=== PATIENT | female | born 1960 | race Caucasian/White ===

== ENCOUNTER → 2017-10-23 | Outpatient (REF) | payer SELFPAY | LOC: M LABDRAW1 09:32 | DX: E89.0 Postprocedural hypothyroidism (principal) ==

== ENCOUNTER → 2017-11-30 | Outpatient (CLI) | payer SELFPAY ==
[2017-11-30 08:30] LABS: FREE T4 1.19 NG/DL (0.76-1.46)
== END ==
LOC: M LAB 07:18
DX: E89.0 Postprocedural hypothyroidism (principal)

== ENCOUNTER → 2018-04-17 | Outpatient (CLI) | payer SELFPAY | LOC: M LAB 08:02 | DX: E89.0 Postprocedural hypothyroidism (principal) ==

== ENCOUNTER → 2018-10-30 | Outpatient (CLI) | payer SELFPAY ==
[~2018-10-30] MED LIST: /WARF25TA OR; ALDA25TA2 OR; DIGO0.257 OR; FERR325T OR; LASI20TA OR; No Historical Meds; OMEP20TA7 OR; PROP60TA OR; SLOWTAB OR; VITA500C OR; [UNRECOGNIZED DRUG - OTHER] PO; tapazole PO
== END ==
LOC: M LAB 10:21
PROVIDERS: ATTEND Nurse Practitioner Family
DX: E89.0 Postprocedural hypothyroidism (principal)

== ENCOUNTER 2019-04-22 09:31 | Emergency (ER) | payer SELFPAY ==
[~2019-04-22] VITALS: Ht 160 cm; Wt 85.0 kg
[~2019-04-22 09:31] MED LIST changes: -/WARF25TA OR; +COUM1TAB18 OR
[2019-04-22] MEDS ORDERED: [UNRECOGNIZED DRUG - OTHER] (09:40)
[2019-04-22] MEDS ORDERED: ASPI81CH48 PO (09:40)
[2019-04-22] MEDS ORDERED: RANI150T PO (09:40)
[2019-04-22] MEDS ORDERED: LEVO100T5 PO (09:40)
[2019-04-22] MEDS ORDERED: BENZONATATE 100 MG CAP PO ONE (11:00)
[2019-04-22] MEDS ORDERED: AUGM875T28 PO (11:11)
[2019-04-22] MEDS ORDERED: TESS100C PO (11:12)
[2019-04-22 11:24] VITALS: BP 153/70
== END 2019-04-22 11:26 | disposition home or self-care (01) ==
LOC: M ED 09:31
DX: J01.90 Acute sinusitis, unspecified (principal); R05 Cough; K21.9 Gastro-esophageal reflux disease without esophagitis; E05.90 Thyrotoxicosis, unspecified without thyrotoxic crisis or storm; F41.9 Anxiety disorder, unspecified; F32.9 Major depressive disorder, single episode, unspecified; Z72.0 Tobacco use; Z79.82 Long term (current) use of aspirin; Z79.899 Other long term (current) drug therapy

== ENCOUNTER → 2020-02-18 | Outpatient (CLI) | payer SELFPAY ==
[~2020-02-18] MED LIST changes: +ASPI81CH48 PO; +AUGM875T28 PO; +LEVO100T5 PO; +RANI150T PO; +TESS100C PO; +[UNRECOGNIZED DRUG - OTHER]
== END ==
LOC: M LAB 08:07
PROVIDERS: ATTEND Nurse Practitioner Family
DX: E89.0 Postprocedural hypothyroidism (principal)

== ENCOUNTER 2020-08-10 21:13 | Inpatient (IN) | payer SELFPAY ==
[~2020-08-10] VITALS: Ht 160 cm; Wt 81.8 kg
[2020-08-10 21:52] LABS: BASO # 0.1 10^3/uL (0.0-0.2); BASO % 0.9 % (0.0-1.0); EOS # 0.2 10^3/uL (0.0-0.5); EOS % 1.5 % (0.0-3.0); HEMATOCRIT 42.5 % (36.0-47.0); HEMOGLOBIN 14.5 g/dl (12.0-15.5); LYMPH # 3.1 10^3/uL (1.5-5.0); LYMPH % 28.8 % (24.0-44.0); MEAN CORPUSCULAR HEMOGLOBIN 31.9 pg (27.0-33.0); MEAN CORPUSCULAR HGB CONC 34.1 g/dl (32.0-36.5); MEAN CORPUSCULAR VOLUME 93.4 fl (80.0-96.0); MONO # 0.9 10^3/uL (0.0-0.8); MONO % 7.9 % (0.0-5.0); NEUTROPHILS # 6.5 10^3/uL (1.5-8.5); NEUTROPHILS % 60.8 % (36.0-66.0); PLATELET COUNT, AUTOMATED 328 10^3/uL (150-450); RED BLOOD COUNT 4.55 10^6/uL (4.00-5.40); WHITE BLOOD COUNT 10.7 10^3/uL (4.0-10.0)
--- NOTE | 2020-08-10 22:08 | REPVR ---
PROCEDURE INFORMATION: Exam: XR Chest, 1 View Exam date and time: 08/10/2020 9:25 PM Age: 59 years old Clinical indication: Chest pain; Type not specified TECHNIQUE: Imaging protocol: XR of the chest Views: 1 view. COMPARISON: No relevant prior studies available. FINDINGS: Lungs: Mild left base atelectasis or scar. The right lung is clear. Pleural space: Unremarkable. No pleural effusion. No pneumothorax. Heart/Mediastinum: Volume loss in the left hemithorax with shift of the heart toward the left. No cardiomegaly. Bones/joints: Unremarkable. IMPRESSION: 1. Volume loss in the left hemithorax with left base atelectasis or scar. 2. Otherwise negative chest. Electronically signed by: Shahbaz Pickett On 08/10/2020 22:08:11 PM
[2020-08-10 22:13] LABS: ALT/SGPT 17 U/L (12-78); BILIRUBIN,DIRECT 0.1 MG/DL (0.0-0.2); BILIRUBIN,TOTAL 0.4 MG/DL (0.2-1.0); CK-MB VALUE MASS 1.5 NG/ML (<3.6); CPK CREATINE PHOSPHOKINASE 110 U/L (26-192); LIPASE 188 U/L (73-393); MB/CK RELATIVE INDEX 1.36 (< OR =4); TOTAL PROTEIN 7.1 GM/DL (6.4-8.2); TROPONIN I < 0.02 NG/ML (< 0.10)
[2020-08-10] MEDS ORDERED: AZITHROMYCIN INJ 500 MG, VIAL MATE ADAPTER 1 EACH in D5W 250 ML IV ONE (22:15)
[2020-08-10] MEDS ORDERED: IPRATROPIUM 0.5MG/ALBUTEROL 2.5MG INH SOL UD 3ML (DUONEB) NEB ONE (22:15)
[2020-08-10] MEDS ORDERED: cefTRIAXone SOD 2 GM in D5W MINI-BAG PLUS 50 ML IV ONE (22:15)
[2020-08-10 22:16] LABS: INR 0.92; PROTHROMBIN TIME 12.6 SECONDS (12.5-14.3)
[2020-08-10] MEDS ORDERED: ISOVUE-370 76% 100ML VIAL As Ordered ONE (22:30)
--- NOTE | 2020-08-11 02:06 | REPVR ---
PROCEDURE INFORMATION: Exam: CT Angiography Chest With Contrast Exam date and time: 08/10/2020 1:41 AM Age: 59 years old Clinical indication: Abnormal findings; Abnormal radiologic exam of lung or chest; Additional info: Rule out malignancy and pulmonary embolism TECHNIQUE: Imaging protocol: Computed tomographic angiography of the chest with intravenous contrast. 3D rendering (Not supervised by radiologist): MIP and/or 3D reconstructed images were created by the technologist. Radiation optimization: All CT scans at this facility use at least one of these dose optimization techniques: automated exposure control; mA and/or kV adjustment per patient size (includes targeted exams where dose is matched to clinical indication); or iterative reconstruction. Contrast material: ISOVUE 370; Contrast volume: 75 ml; Contrast route: INTRAVENOUS (IV); COMPARISON: CR PORTABLE CHEST X-RAY 08/10/2020 9:41 PM FINDINGS: Pulmonary arteries: The left hilar mass encases the distal left main pulmonary artery and proximal branches with slight narrowing. The main pulmonary artery measures 26 mm. No pulmonary embolism is identified. Aorta: The ascending thoracic aorta measures 33 mm. Lungs: Left hilar mass with abrupt obstruction of the left upper lobe bronchus and lingular bronchus with prominent narrowing of the left lower lobe bronchus. Moderately prominent atelectasis or consolidation of the left upper lobe and lingula with infiltrates and atelectasis in the remaining aerated apical left upper lobe. There is a separate left lower lobe left infrahilar mass measuring 3.1 x 3.2 x 2.1 cm and does tangentially contact the left hilar mass which measures approximately 8.1 x 6.0 x 5.4 cm. Pleural space: Unremarkable. No pneumothorax. No pleural effusion. Heart: Unremarkable. No cardiomegaly. No pericardial effusion. Mediastinal space: There is soft tissue confluence in the subcarinal region and some extension of the left hilar mass into the aorticopulmonary window. A few smaller nodes are noted in the right paratracheal region. Lymph nodes: See "Mediastinal space" finding. Bones/joints: Unremarkable. No acute fracture. Soft tissues: Unremarkable. IMPRESSION: 1. Large left hilar mass consistent with malignancy with adjacent infrahilar left lower lobe mass consistent with metastasis and borderline to mild mediastinal adenopathy also consistent with metastatic disease. 2. Left lung bronchial occlusion and narrowing with moderately prominent atelectasis or consolidation of the left upper lobe and lingula with infiltrates and atelectasis remaining in the aerated apical left upper lobe. 3. Otherwise negative CTA chest. No pulmonary embolism is identified. Electronically signed by: Shahbaz Pickett On 08/11/2020 02:05:53 AM
[2020-08-11 02:32] LABS: CK-MB VALUE MASS 1.3 NG/ML (<3.6); CPK CREATINE PHOSPHOKINASE 89 U/L (26-192); MB/CK RELATIVE INDEX 1.46 (< OR =4); TROPONIN I < 0.02 NG/ML (< 0.10)
[2020-08-11] MEDS ORDERED: POTASSIUM CHLORIDE 10 MEQ SR TABLET PO ONE (04:00)
[2020-08-11] MEDS ORDERED: MORPHINE 2 MG/ML 1ML VIAL (J2270) IV PRN (04:00)
[2020-08-11] MEDS ORDERED: ACET-897 PO (04:11)
[2020-08-11] MEDS ORDERED: GNPTAB PO (04:11)
[2020-08-11] MEDS ORDERED: BAYE325T12 PO (04:11)
[2020-08-11] MEDS ORDERED: FAMO20TA4 PO (04:11)
[2020-08-11] MEDS ORDERED: SYNT112T2 PO (04:11)
--- NOTE | 2020-08-11 04:26 | IPNPDOC ---
Text Note Date of Service The patient was seen on 08/11/20. VS,Fishbone, I+O VS, Fishbone, I+O Laboratory Tests 08/10/20 21:33 Vital Signs Date Time Temp Pulse Resp B/P (MAP) Pulse Ox O2 Delivery O2 Flow Rate FiO2 08/11/20 02:46 89 20 153/67 (95) 95 Room Air 08/10/20 21:13 97.5 I&O- Last 24 Hours up to 6 AM 08/11/20 06:00 Intake Total 305 ml Balance 305 ml GERSON ASHBY MD Aug 11, 2020 04:26
[2020-08-11 05:47] VITALS: BP 144/82
[2020-08-11] MEDS: traMADol 50 MG TAB PO PRN ×2 (06:07→17:28)
[2020-08-11] MEDS: LevoFLOXacin IV 750 MG in IV 1 EA IV SCH (06:08)
[2020-08-11] MEDS: NICOTINE 21MG/24HR 1 EA TRANSDERMAL TD PRN (06:09)
--- NOTE | 2020-08-11 06:22 | HPEPDOC ---
[facility] Medical History & Physical Date of Admission Aug 11, 2020 Date of Service: Aug 11, 2020 Attending Physician: GERSON ASHBY MD History and Physical CHIEF COMPLAINT: Shortness of breath and palpitations HISTORY OF PRESENT ILLNESS: Patient is a 59 year old female who presented to the [facility] ER with complaint of increasing shortness of breath and feelings of her heart racing. Patient states that her symptoms started about a month or so ago. She had noticed some mild shortness of breath and a cough. Additionally the patient states that she had developed pain on the left side of her back behind h er scapula which she attributed to a pull muscle. She states that she gradually developed worsening shortness of breath and cough with sputum production. She thought this was from her allergies. Her shortness of breath progressed to the point where she started to cut back on smoking. About 1-2 weeks ago she noted that she was having night sweats which she attributed to recently turning the heat on in her house. Today the patient states that she had noticed that her heart was beating very fast and she was feeling more and more short of breath which prompted her to present to the ED. In the ED the patient was found to be in Atrial fibrillation with RVR. She was given IV Cardizem and subsequently converted to sinus rhythm. Laboratory studies demonstrated a mild leukocytosis of 10.7. Patient received a chest x-ray and CT angiography. CT angiography demonstrated a large left hilar mass consistent with malignancy and adjacent infrahilar left lower lobe mass consistent with metastasis and borderline to mild mediastinal adenopathy. Additionally left lung bronchial occlusion and narrowing with moderately prominent atelectasis or consolidation of the left upper lobe and lingula with infiltrates and atelectasis remaining in the aerated apical left upper lobe. Hospitalist service was consulted and the patient was admitted for further evaluation and management PAST MEDICAL HISTORY: 1. Graves Disease with hypothyroid conversion s/p ablation 2. Paroxysmal Atrial Fibrillation not on anticoagulation No further diagnosed past medical history as patient does not follow with a PCP PAST SURGICAL HISTORY: 1. D & C after medical SOCIAL HISTORY: Patient lives at home with her . She is independent of her ADLs. She is a current and long time smoker. She started smoking around 17- 18. She smokes about 1 1/2 ppd. Additionally she smokes marijuana daily. She denies any IV drug use. She denies any alcohol use FAMILY HISTORY: Patients dad at the age of 78 from pancreatic cancer. Her mom is alive. She is an only child ALLERGIES: Please see below. REVIEW OF SYSTEMS: CONSTITUTIONAL: Admits to nightsweats. Admits to unintentional weightloss. Admits to chills. Denies fevers HEENT: Denies changes in vision. Denies difficulty swallowing. CARDIOVASCULAR: Admits to palpitations and feelings of the heart racing. Denies chest pain or pressure RESPIRATORY: Admits to shortness of breath. Admits to cough. Admits to some sputum production. Denies hemoptysis GASTROINTESTINAL: Denies abdominal pain. Denies diarrhea, nausea, vomiting, constipation or diarrhea GENITOURINARY: Denies dysuria. Denies increased frequency or urgency SKIN: Denies rashes or lesions MUSCULOSKELETAL: Admits to left back pain located under the scapula. Denies muscle weakness NEUROLOGICAL: Denies changes in speech or gait PSYCHIATRIC: Denies history of anxiety or depression ENDOCRINE: Denies heat intolerance or cold intolerance HEMATOLOGIC/LYMPHATIC: Denies easy bruising or bleeding. Denies history of DVT or PE HOME MEDICATIONS: Please see below. PHYSICAL EXAMINATION: VITAL SIGNS: Temperature 97.3, pulse 83, respiratory rate 19, blood pressure 129/59, pulse oximetry 98% on room air. GENERAL APPEARANCE: Awake, alert, and oriented. Does not appear in acute distress. Appears anxious. HEENT: Atraumatic, normocephalic. Eyes are nonicteric. Trachea is midline. Mucous membranes are pink and moist CARDIOVASCULAR: Normal S1, S2. Regular rate and rhythm. No clicks rubs or murm urs LUNGS: Clear vesicular breath sounds bilaterally. Somewhat diminished on the left. No wheezes, rhonchi or rales. Symmetric chest expansion. Somewhat poor respiratory effort due to patient related effort from pain ABDOMEN: Soft, nondistended. Nontender. Normoactive bowel sounds EXTREMITIES: No edema. Full and equal pulses in bilateral upper and lower extremities NEUROLOGICAL: No focal neurological deficits PSYCHIATRIC: Mood and affect are appropriate for situation LABORATORY DATA: See below. IMAGING: PROCEDURE INFORMATION: Exam: XR Chest, 1 View Exam date and time: 08/10/2020 9:25 PM Age: 59 years old Clinical indication: Chest pain; Type not specified TECHNIQUE: Imaging protocol: XR of the chest Views: 1 view. COMPARISON: No relevant prior studies available. FINDINGS: Lungs: Mild left base atelectasis or scar. The right lung is clear. Pleural space: Unremarkable. No pleural effusion. No pneumothorax. Heart/Mediastinum: Volume loss in the left hemithorax with shift of the heart toward the left. No cardiomegaly. Bones/joints: Unremarkable. IMPRESSION: 1. Volume loss in the left hemithorax with left base atelectasis or scar. 2. Otherwise negative chest. Electronically signed by: Shahbaz Pickett On 08/10/2020 PROCEDURE INFORMATION: Exam: CT Angiography Chest With Contrast Exam date and time: 08/10/2020 1:41 AM Age: 59 years old Clinical indication: Abnormal findings; Abnormal radiologic exam of lung or chest; Additional info: Rule out malignancy and pulmonary embolism TECHNIQUE: Imaging protocol: Computed tomographic angiography of the chest with intravenous contrast. 3D rendering (Not supervised by radiologist): MIP and/or 3D reconstructed images were created by the technologist. Radiation optimization: All CT scans at this facility use at least one of these dose optimization techniques: automated exposure control; mA and/or kV adjustment per patient size (includes targeted exams where dose is matched to clinical indication); or iterative reconstruction. Contrast material: ISOVUE 370; Contrast volume: 75 ml; Contrast route: INTRAVENOUS (IV); COMPARISON: CR PORTABLE CHEST X-RAY 08/10/2020 9:41 PM FINDINGS: Pulmonary arteries: The left hilar mass encases the distal left main pulmonary artery and proximal branches with slight narrowing. The main pulmonary artery measures 26 mm. No pulmonary embolism is identified. Aorta: The ascending thoracic aorta measures 33 mm. Lungs: Left hilar mass with abrupt obstruction of the left upper lobe bronchus and lingular bronchus with prominent narrowing of the left lower lobe bronchus. Moderately prominent atelectasis or consolidation of the left upper lobe and lingula with infiltrates and atelectasis in the remaining aerated apical left upper lobe. There is a separate left lower lobe left infrahilar mass measuring 3.1 x 3.2 x 2.1 cm and does tangentially contact the left hilar mass which measures approximately 8.1 x 6.0 x 5.4 cm. Pleural space: Unremarkable. No pneumothorax. No pleural effusion. Heart: Unremarkable. No cardiomegaly. No pericardial effusion. Mediastinal space: There is soft tissue confluence in the subcarinal region and some extension of the left hilar mass into the aorticopulmonary window. A few smaller nodes are noted in the right paratracheal region. Lymph nodes: See "Mediastinal space" finding. Bones/joints: Unremarkable. No acute fracture. Soft tissues: Unremarkable. IMPRESSION: 1. Large left hilar mass consistent with malignancy with adjacent infrahilar left lower lobe mass consistent with metastasis and borderline to mild mediastinal adenopathy also consistent with metastatic disease. 2. Left lung bronchial occlusion and narrowing with moderately prominent atelectasis or consolidation of the left upper lobe and lingula with infiltrates and atelectasis remaining in the aerated apical left upper lobe. 3. Otherwise negative CTA chest. No pulmonary embolism is identified. Electronically signed by: Shahbaz Pickett On 08/11/2020 02:05:53 AM MICROBIOLOGY: Please see below. ASSESSMENT: Patient is a 59 year old female who presented to the [facility] ER with complaint of increasing shortness of breath and feelings of her heart racing and was found to be in Atrial fibrillation with RVR. Imaging in ED demonstrated left upper lobe mass consistent with malignancy . PLAN: 1. Atrial Fibrillation w/ RVR -Patient presented with complaint of worsening SOB and palpitations. Found to be in Atrial fibrillation with RVR. Patient states that she has been diagnosed with A-fib in the past. She states that she was told it was related to her graves disease at the time. She previously followed with Dr. Servin office however had been fired as she did not show up for her appointments. According to the patient she was not placed on any medications as she spontaneously converted to sinus rhythm at the time. Additionally she was previously on Coumadin but she was taken off this and placed on aspirin. Patient has not reestablished with a Cap Cutter and does not follow with a PCP -Patient converted to sinus after receiving Cardizem in the ED. A-fib is likely secondary to her left hilar mass/malignancy -Echo ordered -Patient takes Synthroid outpatient. Does not follow with PCP and unclear as to who is managing her medications. Will order a TSH -[id number] score of 2 for being female and HTN. Will start Eliquis -Currently in sinus rhythm. 2. Left Hilar Mass -Patient has left hilar mass demonstrated on CT imaging. She has had increasing shortness of breath, unintentional weight-loss, decreased appetite, night sweats, and pain behind her left scapula for about a month now. Likely secondary to malignancy -Patient will likely need outpatient follow-up with [facility] for staging. Potential biopsy through IR if possible. If not may need bronchoscopy with CT guided biopsy -Will provide pain management. -Tramadol 50mg prn -Morphine IV -Zofran prn nausea 3. Left upper lobe consolidation -Possible post obstructive pneumonia from left hilar mass. Patient has mild leukocytosis but is afebrile. Does have cough and sputum production -Received Azithromycin and Rocephin in ED -Will start Levaquin IV -Procalcitonin pending. If negative can discontinue 4. Hypertension -Patient states she has hypertension but does not take medicines because she does not follow with PCP. Currently she is normotensive. -Consider Metoprolol of Diltiazem for BP medication as this may also help with rate control if patient develops atrial fibrillation in future 5. Hypothyroidism -Continue Levothyroxine -TSH pending. Patient does not follow with PCP for medication monitoring. Will titrate levothyroxine prn 6. GERD -Continue pepcid 7. Tobacco Abuse -Nicotine Patch 8. DVT prophylaxis -Eliquis Vital Signs Vital Signs Date Time Temp Pulse Resp B/P (MAP) Pulse Ox O2 Delivery O2 Flow Rate FiO2 08/11/20 04:26 97.3 83 19 129/59 (82) 98 Room Air Laboratory Data Labs 24H Laboratory Tests 2 08/10/20 21:33: Immature Granulocyte % (Auto) 0.1, Neutrophils (%) (Auto) 60.8, Lymphocytes (%) (Auto) 28.8, Monocytes (%) (Auto) 7.9H, Eosinophils (%) (Auto) 1.5, Basophils (%) (Auto) 0.9, Neutrophils # (Auto) 6.5, Lymphocytes # (Auto) 3.1, Monocytes # (Auto) 0.9H, Eosinophils # (Auto) 0.2, Basophils # (Auto) 0.1, Nucleated Red Blood Cells % (auto) 0.0, Prothrombin Time 12.6, Prothromb Time International Ratio 0.92, Total Bilirubin 0.4, Direct Bilirubin 0.1, Aspartate Amino Transf (AST/SGOT) 16, Alanine Aminotransferase (ALT/SGPT) 17, Alkaline Phosphatase 69, Total Creatine Kinase 110, Creatine Kinase MB 1.5, Creatine Kinase MB Relative Index 1.36, Troponin I < 0.02, Total Protein 7.1, Albumin 4.0, Albumin/Globulin Ratio 1.3, Lipase 188 08/10/20 21:43: POC Glucose (Misc Panel) 121H, POC Sodium (Misc Panel) 138, POC Potassium (Misc Panel) 3.3L, POC Chloride (Misc Panel) 105, POC Total CO2 (Misc Panel) 22.0L, POC Blood Urea Nitrogen (Misc Panel 14, POC Ionized Calcium (Misc Panel) 4.8, POC Creatinine (Misc Panel) 0.9, POC Hematocrit (Misc Panel) 42.0 08/10/20 21:44: POC Troponin I (Misc) 0.00 08/10/20 22:27: Urine Color YELLOW, Urine Appearance CLEAR, Urine pH 6.0, Urine Specific Byron 1.013, Urine Protein NEGATIVE, Urine Glucose (UA) NEGATIVE, Urine Ketones NEGATIVE, Urine Blood 1+H, Urine Nitrite NEGATIVE, Urine Bilirubin NEGATIVE, Urine Urobilinogen 0.2, Urine Leukocyte Esterase NEGATIVE, Urine WBC (Auto) 2, Urine RBC (Auto) 5H, Urine Hyaline Casts (Auto) 0, Urine Bacteria (Auto) NEGATIVE, Urine Squamous Epithelial Cells 0, Urine Sperm (Auto) 08/11/20 01:57: Total Creatine Kinase 89, Creatine Kinase MB 1.3, Creatine Kinase MB Relative Index 1.46, Troponin I < 0.02 CBC/BMP Laboratory Tests 08/10/20 21:33 Home Medications Scheduled Aspirin (Aspirin) 325 Mg Tablet, 325 MG PO QPM TAKES AROUND 1800 Famotidine (Famotidine) 20 Mg Tablet, 20 MG PO DAILY Levothyroxine Sodium (Synthroid) 112 Mcg Tablet, 112 MCG PO DAILY Scheduled PRN Acetaminophen (Tylenol Extra Strength) 500 Mg Tablet, 1,000 MG PO Q6H PRN for PAIN Diphenhydra/Phenyleph/Acetamin (Allergy-Severe Sinus Amaro Caplet) 1 Each Tablet, 2 TAB PO Q4H PRN for ALLERGY SYMPTOMS/SINUS PAIN Allergies Coded Allergies: No Known Allergies (Verified , 12/13/11) A-FIB/CHADSVASC A-FIB History Current/History of A-Fib/PAF?: Yes Current PO Anticoag Therapy: Yes GME ATTESTATION GME ATTESTATION My faculty preceptor for this patient encounter was physically present during the encounter and was fully available. All aspects of the patient interview, examination, medical decision making process, and medical care plan development were reviewed and approved by the faculty preceptor. The faculty preceptor is aware and concurs with the plan as stated in the body of this note and will attest to such by his/her cosignature. ATTENDING NOTE TIME OF SERVICE 455am is a 59 yr old w a hx of parox afib & thyroiditis induced cardiomyopathy who presented w c/o palpations and cough. She was found to be in rapid afib which resolved w metoprolol, but CT of the chest identified cancer and post obstructive PNA. Plan: f/u trops, Echo, c/w abx, NOAC, PFS consult for assistance with paying for meds. She will need out pt referral to determine the cause of cancer Rest per 's H&P MAURI BARGER DO Aug 11, 2020 06:22 GERSON ASHBY MD Aug 11, 2020 06:50
[2020-08-11] MEDS: ONDANSETRON 4MG/2ML VIAL IV PRN (06:52)
[2020-08-11] MEDS: LEVOTHYROXINE 112MCG TABLET (0.112MG) PO SCH (06:53)
[2020-08-11 07:14] LABS: THYROID STIMULATING HORMONE 0.541 uIU/ML (0.358-3.740)
[2020-08-11 08:01] LABS: MAGNESIUM LEVEL 2.2 MG/DL (1.8-2.4); TROPONIN I < 0.02 NG/ML (< 0.10)
[2020-08-11] MEDS: APIXABAN 5 MG TAB (ELIQUIS) PO SCH ×2 (09:08→20:42)
[2020-08-11] MEDS: FAMOTIDINE 20 MG TAB PO SCH (09:08)
--- NOTE | 2020-08-11 09:34 | ECGEPIP ---
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
[2020-08-11 14:00] VITALS: BP 110/73
[2020-08-11 22:00] VITALS: BP 158/90
[2020-08-12] MEDS: ACETAMINOPHEN 500 MG TAB PO PRN ×2 (03:59→21:04)
[2020-08-12] MEDS: LEVOTHYROXINE 112MCG TABLET (0.112MG) PO SCH (05:31)
[2020-08-12 06:00] VITALS: BP 138/73
[2020-08-12] MEDS: LevoFLOXacin IV 750 MG in IV 1 EA IV SCH (06:04)
[2020-08-12 06:22] LABS: HEMATOCRIT 40.8 % (36.0-47.0); HEMOGLOBIN 13.4 g/dl (12.0-15.5); MEAN CORPUSCULAR HEMOGLOBIN 30.8 pg (27.0-33.0); MEAN CORPUSCULAR HGB CONC 32.8 g/dl (32.0-36.5); MEAN CORPUSCULAR VOLUME 93.8 fl (80.0-96.0); PLATELET COUNT, AUTOMATED 312 10^3/uL (150-450); RED BLOOD COUNT 4.35 10^6/uL (4.00-5.40); WHITE BLOOD COUNT 8.4 10^3/uL (4.0-10.0)
[2020-08-12 06:43] LABS: BLOOD UREA NITROGEN 12 MG/DL (7-18); CALCIUM LEVEL 9.3 MG/DL (8.8-10.2); CARBON DIOXIDE LEVEL 25 MEQ/L (21-32); CHLORIDE LEVEL 105 MEQ/L (98-107); CREATININE FOR GFR 0.78 MG/DL (0.55-1.30); GLOMERULAR FILTRATION RATE > 60.0 (>45); GLUCOSE, FASTING 121 MG/DL (70-100); POTASSIUM SERUM 3.7 MEQ/L (3.5-5.1); SODIUM LEVEL 138 MEQ/L (136-145)
--- NOTE | 2020-08-12 07:08 | ECHO ---
DATE OF PROCEDURE: 08/11/2020 Age: 59 Gender: Female Height: 160 cm Weight: 83 kg REFERRING PHYSICIAN: Walt Winston MD INDICATION: Dysrhythmia MEASUREMENTS: IVS 0.9 LV 4.8 LVPW 0.8 LA 37 Aorta 2.5. RV 3.4 IVC 1.2 Mitral E wave velocity 77, A wave 113 E prime septal 7.8 E prime lateral 8.4 FINDINGS: The study is of fair technical quality. Underlying sinus rhythm. Normal LV size with preserved LV systolic function. Estimated left ventricular ejection fraction (LVEF) 60 to 65%. Normal RV size and systolic function. Both atria appear grossly normal. Minimally sclerotic aortic valve with preserved mobility. Normal mitral, tricuspid and pulmonic valves. No pericardial effusion. Inferior vena cava is normal size. Normal aortic root and based on limited views also normal aortic arch and abdominal aorta. Doppler interrogation indicates no aortic stenosis and trace insufficiency. There are competent mitral and tricuspid valves. Mitral inflow pattern and tissue Doppler imaging of mitral annulus reveal grade 1 diastolic dysfunction. CONCLUSIONS: 1. Study is of fair technical quality. 2. Normal LV size with preserved LV systolic function and grade 1 diastolic dysfunction. 3. Aortic sclerosis with no stenosis and mild insufficiency. 4. No additional significant valvular disease 5. Likely normal central venous pressure. 6. Unable to estimate pulmonary artery pressure. MTDD
[2020-08-12] MEDS: APIXABAN 5 MG TAB (ELIQUIS) PO SCH (08:17)
[2020-08-12] MEDS: FAMOTIDINE 20 MG TAB PO SCH (08:17)
[2020-08-12] MEDS: traMADol 50 MG TAB PO PRN (08:18)
[2020-08-12] MEDS: ONDANSETRON 4MG/2ML VIAL IV PRN (08:18)
[2020-08-12] MEDS: NICOTINE 21MG/24HR 1 EA TRANSDERMAL TD PRN (08:29)
[2020-08-12] MEDS ORDERED: FLUBLOK(EGG FREE)(QUAD)INFLUENZA VACC 0.5ML SYRINGE 18YRS & OLDER IM ONE (09:00)
--- NOTE | 2020-08-12 12:18 | IPNPDOC ---
Date Seen The patient was seen on 08/12/20. Progress Note SUBJECTIVE: c/o left lateral chest discomfort worse when she lifts her hand above her head. no fever or chills. no cough. sob is the same. no rodgers. OBJECTIVE: PHYSICAL EXAMINATION VITALS SEE BELOW GENERAL APPEARANCE: tearful. no respiratory distress. no conversational dyspnea or use of acc muscles. HEENT: No JVD Atraumatic, normocephalic. Eyes are nonicteric. Trachea is midline. Mucous membranes are pink and moist CARDIOVASCULAR: Normal S1, S2. Regular rate and rhythm. No clicks rubs or murmurs LUNGS: diminished. No wheezes, rhonchi or rales. ABDOMEN: Soft, no HSM nondistended. Nontender. Normoactive bowel sounds EXTREMITIES: No edema. LABORATORY DATA: See below. IMAGING: PROCEDURE INFORMATION: Exam: XR Chest, 1 View 1. Volume loss in the left hemithorax with left base atelectasis or scar. 2. Otherwise negative chest. Electronically signed by: Shahbaz Pickett On 08/10/2020 CT Angiography Chest With Contrast 1. Large left hilar mass consistent with malignancy with adjacent infrahilar left lower lobe mass consistent with metastasis and borderline to mild mediastinal adenopathy also consistent with metastatic disease. 2. Left lung bronchial occlusion and narrowing with moderately prominent atelectasis or consolidation of the left upper lobe and lingula with infiltrates and atelectasis remaining in the aerated apical left upper lobe. 3. Otherwise negative CTA chest. No pulmonary embolism is identified. Electronically signed by: Shahbaz Pickett On 08/11/2020 02:05:53 AM MICROBIOLOGY: Please see below. ASSESSMENT: Patient is a 59 year old female who presented to the [facility] ER with SOB found to have new onset AFib w RVR, Lung mass. Atrial Fibrillation w/ RVR ,resolved Left Hilar Mass most likely malignancy Postobstructive Left upper lobe pneumonia Hypertension Hypothyroidism h/o Grave's disease GERD Tobacco Abuse Anxiety Plan: pt agrees to biopsy of hilar mass. AC held. rate controlled Afib. continue abx for pneumonia. prn xanax for anxiety. ct abd/pelvis, ct head, bone scan for staging. may dc home after biopsy and [facility] consult once pathology available. 1-2 days discharge plans. VS, I&O, 24H, Fishbone Vital Signs/I&O Vital Signs Date Time Temp Pulse Resp B/P (MAP) Pulse Ox O2 Delivery O2 Flow Rate FiO2 08/12/20 08:48 18 Room Air 08/12/20 06:00 97.3 89 138/73 (94) 93 I&O- Last 24 Hours up to 6 AM 08/12/20 06:00 Intake Total 780 ml Output Total 1450 ml Balance -670 ml Laboratory Data 24H LABS Laboratory Tests 2 08/12/20 05:47: Nucleated Red Blood Cells % (auto) 0.0, Anion Gap 8, Glomerular Filtration Rate > 60.0, Calcium Level 9.3 CBC/BMP Laboratory Tests 08/12/20 05:47 DIONNE ALFORD MD Aug 12, 2020 12:18
[2020-08-12] MEDS ORDERED: ALPRAZolam 0.25 MG TAB PO PRN (12:30)
[2020-08-12] MEDS ORDERED: ALPRAZolam 0.25 MG TAB PO ONE (12:30)
[2020-08-12] MEDS: GASTROGRAFIN SOLUTION 30ML PO SCH ×2 (13:08→14:01)
[2020-08-12 14:00] VITALS: BP 150/85
[2020-08-12] MEDS ORDERED: ISOVUE-370 76% 100ML VIAL As Ordered ONE (15:14)
--- NOTE | 2020-08-12 15:51 | REP ---
INDICATION: lung ca r/o brain mets. COMPARISON: None. TECHNIQUE: Helical scanning is acquired. 5 mm axial images were reformatted. Coronal MPR images were generated. FINDINGS: Bone window settings demonstrate an intact bony calvarium. There is no evidence of skull fracture or incidental bony calvarial lesion. The visualized paranasal sinuses appear clear. No intraorbital abnormality is seen. On soft tissue window setting images; the lateral, third, and fourth ventricles are normal in size and position. Haskins-white differentiation pattern is normal above and below the tentorium. There are is no evidence of intracranial hemorrhage. No mass, edema, infarction, or midline shift is seen. No extra-axial fluid collection is appreciated. IMPRESSION: Negative noncontrast head CT. <Electronically signed by Alvin Mckay > 08/12/20 [id number]
--- NOTE | 2020-08-12 16:58 | REP ---
INDICATION: lung cancer r/o abd mets COMPARISON: CT chest 08/11/2020. TECHNIQUE: CT Scan of the abdomen and pelvis was performed with intravenous administration of 100 cc of Isovue 370, and oral contrast. FINDINGS: Lung bases: The left lower lobe mass is again visualized. Liver: A 7 mm hypodense nodule in the left lobe of the liver is too small to characterize but probably represents a tiny cyst. Gallbladder: Unremarkable. Spleen: Normal. Adrenals: Normal. Pancreas: Normal. Kidneys: Normal. Small and large bowel: There is sigmoid diverticulosis without evidence of acute diverticulitis. Free fluid: None. Abdominal aorta: No aneurysm or dissection. Adenopathy: None. Appendix: Not inflamed. Osseous structures: There are mild degenerative changes of the spine.. Pelvis: No mass. IMPRESSION: No mass or adenopathy in the abdomen or pelvis. <Electronically signed by Gentry Haskins > 08/12/20 [id number]
[2020-08-12 22:00] VITALS: BP 135/75
[2020-08-13 02:45] VITALS: BP 141/78
[2020-08-13 03:53] VITALS: BP 162/84
[2020-08-13] MEDS ORDERED: METOPROLOL 5 MG/5 ML VIAL IV STA (03:59)
[2020-08-13 04:23] VITALS: BP 145/74
--- NOTE | 2020-08-13 04:35 | IPNPDOC ---
Date Seen The patient was seen on 08/13/20. Progress Note Night resident called regarding patient developing atrial fibrillation with RVR on telemetry. Patient evaluated at bedside. EKG obtained confirming atrial fibrillation with RVR. HR ranging from 130-160. Patient was vitally stable with BP 162/84. Patient complained of some mild shortness of breath increased from her baseline. Patient was transferred to PCU where she would be able to receive IV metoprolol. In PCU patient remained vitally stable. 5mg IV metoprolol was administered and patient subsequently converted to sinus rhythm with a BP of 145/74. Will start patient on metoprolol tartrate 12.5 BID. Further titration of dosing based on BP and HR. Patients anticoagulation is currently held due to planned biopsy VS, I&O, 24H, Eribertobonlola Vital Signs/I&O Vital Signs Date Time Temp Pulse Resp B/P (MAP) Pulse Ox O2 Delivery O2 Flow Rate FiO2 08/13/20 04:23 88 145/74 (97) 08/13/20 03:53 97.2 22 94 Room Air I&O- Last 24 Hours up to 6 AM 08/13/20 06:00 Intake Total 1557 ml Output Total 1625 ml Balance -68 ml Laboratory Data 24H LABS Laboratory Tests 2 08/12/20 05:47: Nucleated Red Blood Cells % (auto) 0.0, Anion Gap 8, Glomerular Filtration Rate > 60.0, Calcium Level 9.3 CBC/BMP Laboratory Tests 08/12/20 05:47 MAURI BARGER DO Aug 13, 2020 04:35
[2020-08-13] MEDS: ACETAMINOPHEN 500 MG TAB PO PRN ×2 (05:05→20:33)
[2020-08-13 05:40] LABS: HEMATOCRIT 45.6 % (36.0-47.0); MEAN CORPUSCULAR HEMOGLOBIN 30.9 pg (27.0-33.0); MEAN CORPUSCULAR HGB CONC 32.9 g/dl (32.0-36.5); MEAN CORPUSCULAR VOLUME 93.8 fl (80.0-96.0); PLATELET COUNT, AUTOMATED 327 10^3/uL (150-450); RED BLOOD COUNT 4.86 10^6/uL (4.00-5.40); WHITE BLOOD COUNT 8.8 10^3/uL (4.0-10.0)
[2020-08-13 06:01] LABS: BLOOD UREA NITROGEN 12 MG/DL (7-18); CALCIUM LEVEL 9.5 MG/DL (8.8-10.2); CARBON DIOXIDE LEVEL 28 MEQ/L (21-32); CHLORIDE LEVEL 105 MEQ/L (98-107); CREATININE FOR GFR 0.88 MG/DL (0.55-1.30); GLOMERULAR FILTRATION RATE > 60.0 (>45); GLUCOSE, FASTING 113 MG/DL (70-100); POTASSIUM SERUM 4.2 MEQ/L (3.5-5.1); SODIUM LEVEL 138 MEQ/L (136-145)
[2020-08-13 06:06] LABS: ALT/SGPT 14 U/L (12-78); BILIRUBIN,TOTAL 0.5 MG/DL (0.2-1.0); BLOOD UREA NITROGEN 13 MG/DL (7-18); CALCIUM LEVEL 9.8 MG/DL (8.8-10.2); CARBON DIOXIDE LEVEL 26 MEQ/L (21-32); CHLORIDE LEVEL 105 MEQ/L (98-107); CK-MB VALUE MASS 2.5 NG/ML (<3.6); CPK CREATINE PHOSPHOKINASE 132 U/L (26-192); CREATININE FOR GFR 0.91 MG/DL (0.55-1.30); GLOMERULAR FILTRATION RATE > 60.0 (>45); GLUCOSE, FASTING 109 MG/DL (70-100); MAGNESIUM LEVEL 2.2 MG/DL (1.8-2.4); MB/CK RELATIVE INDEX 1.89 (< OR =4); POTASSIUM SERUM 4.2 MEQ/L (3.5-5.1); SODIUM LEVEL 139 MEQ/L (136-145); TOTAL PROTEIN 7.1 GM/DL (6.4-8.2); TROPONIN I < 0.02 NG/ML (< 0.10)
[2020-08-13] MEDS: LevoFLOXacin IV 750 MG in IV 1 EA IV SCH (06:09)
[2020-08-13] MEDS: LEVOTHYROXINE 112MCG TABLET (0.112MG) PO SCH (06:09)
[2020-08-13 07:53] VITALS: BP 127/76
[2020-08-13] MEDS: METOPROLOL TART 12.5 MG PER 1/2 TAB PO SCH ×2 (08:20→20:27)
[2020-08-13] MEDS: FAMOTIDINE 20 MG TAB PO SCH (08:20)
--- NOTE | 2020-08-13 08:35 | IPNPDOC ---
Date Seen The patient was seen on 08/13/20. Progress Note Per radiology, Large left hilar mass cannot be easily reached with CT guided needle biopsy, and recommended pulmonary consult for bronch w biopsy. plan: pulm consulted to determine inpt vs outpt bronch w biopsy. if outpt, may dc home w outpt fu w pulm after bone scan refer to [facility] for new dx of lung ca once pathology returns will need new pcp-[facility] to arrange. VS, I&O, 24H, Fishbone Vital Signs/I&O Vital Signs Date Time Temp Pulse Resp B/P (MAP) Pulse Ox O2 Delivery O2 Flow Rate FiO2 08/13/20 08:20 80 127/76 08/13/20 07:53 100.0 20 93 Room Air I&O- Last 24 Hours up to 6 AM 08/13/20 06:00 Intake Total 1557 ml Output Total 1725 ml Balance -168 ml Laboratory Data 24H LABS Laboratory Tests 2 08/13/20 05:07: Nucleated Red Blood Cells % (auto) 0.0, Anion Gap 8, Glomerular Filtration Rate > 60.0, Calcium Level 9.8, Magnesium Level 2.2, Total Bilirubin 0.5, Aspartate Amino Transf (AST/SGOT) 15, Alanine Aminotransferase (ALT/SGPT) 14, Alkaline Phosphatase 69, Total Creatine Kinase 132, Creatine Kinase MB 2.5, Creatine Kinase MB Relative Index 1.89, Troponin I < 0.02, Total Protein 7.1, Albumin 4.0, Albumin/Globulin Ratio 1.3 CBC/BMP Laboratory Tests 08/13/20 05:07 DIONNE ALFORD MD Aug 13, 2020 08:35
[2020-08-13 10:19] LABS: INR 0.98; PROTHROMBIN TIME 13.2 SECONDS (12.5-14.3)
--- NOTE | 2020-08-13 10:23 | IPNPDOC ---
Date Seen The patient was seen on 08/13/20. Progress Note SUBJECTIVE: c/o left lateral chest discomfort worse when she lifts her hand above her head. no fever or chills. no cough. sob is the same. no hansen. OBJECTIVE: SUBJECTIVE: no fever chills or HANSEN. denies hemoptysis, cough less without sputum production. no chest pain. no dizziness or lightheadedness. no palpitations. off eliquis for Afib due to planned biopsy of hilar mass. per radiology, CT guided biopsy not possible, and recommended bronchoscopy. OBJECTIVE: PHYSICAL EXAMINATION VITALS SEE BELOW GENERAL APPEARANCE:AAOx3 able to speak in full sentences no respiratory distress. no conversational dyspnea or use of acc muscles. HEENT: No JVD Atraumatic, normocephalic. Eyes are nonicteric. Trachea is midline. Mucous membranes are pink and moist CARDIOVASCULAR: Normal S1, S2. Regular rate and rhythm. No clicks rubs or murmurs LUNGS: diminished. No wheezes, rhonchi or rales. ABDOMEN: Soft, no HSM nondistended. Nontender. Normoactive bowel sounds EXTREMITIES: No edema. LABORATORY DATA: See below. IMAGING: PROCEDURE INFORMATION: Exam: XR Chest, 1 View 1. Volume loss in the left hemithorax with left base atelectasis or scar. 2. Otherwise negative chest. Electronically signed by: Shahbaz Pickett On 08/10/2020 CT Angiography Chest With Contrast 1. Large left hilar mass consistent with malignancy with adjacent infrahilar left lower lobe mass consistent with metastasis and borderline to mild mediastinal adenopathy also consistent with metastatic disease. 2. Left lung bronchial occlusion and narrowing with moderately prominent atelectasis or consolidation of the left upper lobe and lingula with infiltrates and atelectasis remaining in the aerated apical left upper lobe. 3. Otherwise negative CTA chest. No pulmonary embolism is identified. Electronically signed by: Shahbaz Pickett On 08/11/2020 02:05:53 AM MICROBIOLOGY: Please see below. ASSESSMENT: Patient is a 59 year old female who presented to the [facility] ER with SOB found to have new onset AFib w RVR, Lung mass. Atrial Fibrillation w/ RVR ,resolved Left Hilar Mass most likely malignancy Postobstructive Left upper lobe pneumonia Hypertension Hypothyroidism h/o Grave's disease GERD Tobacco Abuse Anxiety Plan: Radiology cannot do ct -guided biopsy and recommended bronchoscopy. pulm consulted. off anticoag for afib due to planned biopsy. ct abd, ct head, n egative for mets. bone scan today. if bronch can be done tomorrow, may dc home w outpt fu with pulm, hemeonc. continue abx for pna. no fever, chills, or wbc. medically stable. wants to go home after bronch. will need new pcp. VS, I&O, 24H, Fishbone Vital Signs/I&O Vital Signs Date Time Temp Pulse Resp B/P (MAP) Pulse Ox O2 Delivery O2 Flow Rate FiO2 08/13/20 08:20 80 127/76 08/13/20 07:53 100.0 20 93 Room Air I&O- Last 24 Hours up to 6 AM 08/13/20 06:00 Intake Total 1557 ml Output Total 1725 ml Balance -168 ml Laboratory Data 24H LABS Laboratory Tests 2 08/13/20 05:07: Nucleated Red Blood Cells % (auto) 0.0, Anion Gap 8, Glomerular Filtration Rate > 60.0, Calcium Level 9.8, Magnesium Level 2.2, Total Bilirubin 0.5, Aspartate Amino Transf (AST/SGOT) 15, Alanine Aminotransferase (ALT/SGPT) 14, Alkaline Phosphatase 69, Total Creatine Kinase 132, Creatine Kinase MB 2.5, Creatine Kinase MB Relative Index 1.89, Troponin I < 0.02, Total Protein 7.1, Albumin 4.0, Albumin/Globulin Ratio 1.3 08/13/20 09:31: CBC/BMP Laboratory Tests 08/13/20 05:07 DIONNE ALFROD MD Aug 13, 2020 10:23
--- NOTE | 2020-08-13 13:08 | REP ---
INDICATION: lung mass bone pain r/o mets. COMPARISON: None. TECHNIQUE/RADIOTRACER AND DOSE: mCi of technetium 99m MDP was injected and standard whole-body bone scanning is acquired. FINDINGS: There is a normal distribution of skeletal tracer with uptake in bilateral kidneys and in the urinary bladder. There is no evidence to suggest skeletal metastatic disease. There is mild focus of increased uptake at the greater trochanter on the left consistent with tendinitis. There is mild osteoarthritic uptake in each acromioclavicular joint. No other abnormality. IMPRESSION: There is no evidence to suggest skeletal metastatic disease.. <Electronically signed by Alvin Mckay > 08/13/20 [id number]
--- NOTE | 2020-08-13 14:28 | CR ---
DATE OF CONSULTATION: 08/13/2020 Mrs. Pickett is a 59-year-old female who was admitted to the hospital on August 11 with complaints of dyspnea and cough. She was diagnosed with pneumonia and given antibiotics. Her symptoms have improved, but she continues to experience left-sided back pain radiating into her axilla. Her past pulmonary history includes 40 years of tobacco exposure. She smokes one to two packs per day and is an active smoker. She denies daily dyspneic symptoms. There is no history of recurrent bronchopulmonary infections. She has not required frequent visits to the emergency department. She has never had pneumonia in the past that she is aware of. There is no history of significant occupational exposure. She has no significant allergic disease, though does have some minor posterior nasal drainage. There is no recent foreign travel. No unusual pet exposures. She has never suffered a deep venous thrombosis (DVT) or pulmonary embolism. No known tuberculosis exposure is appreciated. PAST MEDICAL HISTORY: 1. Hyperthyroidism. 2. Graves disease. Status post radiation therapy, leading to a hypothyroid state on therapy. 3. Also, she had an episode of atrial fibrillation in 2011 when her thyroid function was excessive. SOCIAL HISTORY: She denies regular alcohol use but smokes on a daily basis. Has a 60-80 pack year smoking history. FAMILY HISTORY: Her father succumbed to malignant disease. Mother is alive and healthy. REVIEW OF SYSTEMS: CONSTITUTIONAL: There has been no significant change in her appetite or weight. HEENT: She has no impairment of vision, smell, hearing, or taste. CARDIOVASCULAR: There is no history of typical anginal-type chest pains, orthopnea, or paroxysmal nocturnal dyspnea. She does have palpitations on occasion and had documented atrial fibrillation in 2012. PULMONARY: See above. GASTROINTESTINAL: There is no history of recurring nausea, vomiting, constipation, or diarrhea. GENITOURINARY: There is no history of frequency, dysuria, or kidney stones. ENDOCRINE: There is a history of thyroid disease, as noted above. No history of diabetes. HEMATOLOGIC: She required blood transfusions in 2012. Has no easy bruising or bleeding. NEUROLOGIC: There is no history of stroke or seizures. MUSCULOSKELETAL: She has minor chronic back pain. No significant autoimmune joint disease. PHYSICAL EXAMINATION: She is awake, alert, and oriented. Affect and mood appropriate. Nutrition and hygiene are good. VITAL SIGNS: Temperature 100, pulse rate 80, respirations 20, blood pressure 127/76. HEENT: Oral and nasal mucosa are pink. Her posterior pharynx is not erythematous. Upper airway aperture is adequate in dimension. There is no stridor. No adenopathy in the neck. There is a questionable supraclavicular node on the left. HEART: Sounds are regular without appreciable murmur. Breath sounds are diminished globally with absent breath sounds in the left upper lobe anteriorly. There is dullness to percussion. CHEST: Symmetric. Somewhat increased in its AP diameter. Moves symmetrically without accessory muscle use at rest. Diaphragm tone is difficult to appreciate. ABDOMEN: Soft with intact bowel sounds. No mass or organomegaly. EXTREMITIES: Show no significant edema. Nails are not clubbed. SKIN: Cool and dry. DIAGNOSTIC STUDIES: Her white blood cell count on admission to the hospital to 10.7, currently 8.8. Hemoglobin is 15, hematocrit 45, platelet count 327,000. Electrolytes: Sodium 139, potassium 4.2, chloride 105, CO2 of 26, BUN 13, creatinine 0.91, glucose 109. Her liver enzymes are normal. Coagulation studies showed a PT of 13, INR of 0.98. Chest CT scan shows a large left lung mass with compressive atelectasis. An echocardiogram was performed, and the interpretation is essentially normal. IMPRESSION: 1. Large left lung mass. 1a. Suspect bronchogenic malignancy. 2. Postobstructive pneumonia. 3. Extensive tobacco used history. 4. Intermittent atrial fibrillation. RECOMMENDATIONS: 1. Having reviewed the history and physeal and diagnostic findings with the patient, I have discussed fiberoptic bronchoscopy, possibly including endobronchial ultrasound for sampling of the tumor appreciated on her CT scan and the lymph nodes in the region. The procedure was reviewed with the patient, as were all the hospital complications pertaining thereto, including, but not limited to, bleeding, infection, medications reaction, lung collapse, and an informed consent will be obtained. The patient will be scheduled for the procedure at the next available time in the operating room. 2. I have recommended smoking cessation. Patient is in agreement. 3. Pulmonary function testing will be helpful to assess the extent of her tobacco-related lung disease and her candidacy for treatment of her lung tumor. Thank you for allowing me to consult in the care of this patient. If there are questions, please do not hesitate to contact me. KIERAN
[2020-08-13 14:35] VITALS: BP 151/77
[2020-08-13] MEDS: NICOTINE 21MG/24HR 1 EA TRANSDERMAL TD SCH (17:19)
[2020-08-13 22:00] VITALS: BP 135/77
[2020-08-14] VITALS (7 sets, daily range): BP systolic 122–146; BP diastolic 68–85
[2020-08-14] MEDS: LevoFLOXacin IV 750 MG in IV 1 EA IV SCH (06:34)
[2020-08-14] MEDS: LEVOTHYROXINE 112MCG TABLET (0.112MG) PO SCH (06:34)
[2020-08-14 07:02] LABS: HEMATOCRIT 40.6 % (36.0-47.0); HEMOGLOBIN 13.3 g/dl (12.0-15.5); MEAN CORPUSCULAR HEMOGLOBIN 30.6 pg (27.0-33.0); MEAN CORPUSCULAR HGB CONC 32.8 g/dl (32.0-36.5); MEAN CORPUSCULAR VOLUME 93.5 fl (80.0-96.0); PLATELET COUNT, AUTOMATED 296 10^3/uL (150-450); RED BLOOD COUNT 4.34 10^6/uL (4.00-5.40); WHITE BLOOD COUNT 6.9 10^3/uL (4.0-10.0)
[2020-08-14 07:40] LABS: BLOOD UREA NITROGEN 19 MG/DL (7-18); CALCIUM LEVEL 9.3 MG/DL (8.8-10.2); CARBON DIOXIDE LEVEL 25 MEQ/L (21-32); CHLORIDE LEVEL 105 MEQ/L (98-107); GLOMERULAR FILTRATION RATE > 60.0 (>45); GLUCOSE, FASTING 103 MG/DL (70-100); SODIUM LEVEL 137 MEQ/L (136-145)
[2020-08-14] MEDS: FAMOTIDINE 20 MG TAB PO SCH (08:43)
[2020-08-14] MEDS: NICOTINE 21MG/24HR 1 EA TRANSDERMAL TD SCH (08:45)
[2020-08-14] MEDS: METOPROLOL TART 12.5 MG PER 1/2 TAB PO SCH (08:45)
--- NOTE | 2020-08-14 09:11 | ECGEPIP ---
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 No significant change compared with 08/10/2020. Electronically Signed on 08-14-2020 9:10:59 EDT by Bob Grider
[2020-08-14] MEDS ORDERED: MIDAZOLAM INJ 2MG/2ML VIAL (J2250 PER 1MG) As Ordered ONE (11:07)
[2020-08-14] MEDS ORDERED: ONDANSETRON 4MG/2ML VIAL As Ordered ONE (11:07)
[2020-08-14] MEDS ORDERED: LIDOCAINE 2% 100MG/5ML SDV (FOR ANES.) As Ordered ONE (11:07)
[2020-08-14] MEDS ORDERED: propofoL 200 MG/20 ML VIAL As Ordered ONE (11:07)
[2020-08-14] MEDS ORDERED: ROCURONIUM BROMIDE 50 MG/5 ML VIAL As Ordered ONE (11:07)
[2020-08-14] MEDS ORDERED: fentaNYL 100 MCG/2 ML INJECTION (J3010) As Ordered ONE ×2 (11:07→14:09)
[2020-08-14] MEDS ORDERED: dexameTHASONE 4 MG/ML 1ML VIAL (J1100 PER 1MG) As Ordered ONE (11:07)
--- NOTE | 2020-08-14 12:13 | DS.PDOC ---
Discharge Summary General Date of Admission Aug 11, 2020 at 03:22 Date of Discharge 08/14/20 Discharge Summary PROCEDURES PERFORMED DURING STAY: BRONCHOSCOPY 08/14/20 DR ROSA ECHOCARDIOGRAM AIRPLANE DISPATCHER: DIRECTOR OF REIMBURSEMENT-DR. DUVAL, DR. ROSA DISCHARGE DIAGNOSES: Atrial Fibrillation w/ RVR , paroxysmal Left Hilar Mass most likely bronchogenic malignancy s/p bronch 08/14/20 Postobstructive Left upper lobe pneumonia Hypertension Hypothyroidism h/o Grave's disease s/p ablation with hypothyroid state GERD Tobacco Abuse 40 pack years Anxiety DISCHARGE MEDICATIONS: Please see below. ITEMS TO FOLLOWUP ON ON OUTPATIENT: smoking cessation counselling and nicotine replacement. PCP to discuss lung biopsy to medonc, pulm, radonc if needed, and IR/vascular surgery for chemoport PULM to discuss lung biopsy and refer to [facility] referral for chemo PFS to assist in cancer navigation services/ medicaid application if eligible. ALLERGIES: Please see below. HOSPITAL COURSE: 59 year old female with PMH significant for Graves Disease with hypothyroid conversion s/p ablation,Paroxysmal Atrial Fibrillation not on anticoagulation presented to the [facility] ER with palpitations, pleuritic chest pain, cough productive of sputum, and shortness of breath . In the ED the patient was found to be in Atrial fibrillation with RVR,given IV Cardizem and s converted to sinus rhythm. CT angiography demonstrated a large left hilar mass consistent with malignancy and adjacent infrahilar left lower lobe mass consistent with metastasis and borderline to mild mediastinal adenopathy. She was started on levaquin, and metoprolol 12. 5 mg bid for rate control. she had a tmax of 100.0, but defervesced and was afebrile for 2 days prior to discharge. She underwent Bronchoscopy with Dr. Rosa to evaluate the l eft hilar mass, and underwent staging with negative findings on CT head, abd,pelvis, and bone scan. She was initially started on oral AC, but discontinued due to bronchoscopy. she remained in sinus rhythm. PHYSICAL EXAMINATION ON DISCHARGE: VITAL SIGNS: Please see below. HEENT: PERRL EOMI dry mucus membranes no jvd HEART: S1S2 RRR no m/r/g CHEST: AEBE faint wheezing. fine crackles HAMIDA ABDOMEN: Soft NT ND (+) bowel [id number]. No mass or organomegaly. EXTREMITIES: (-)c/c/e LABORATORY DATA: Please see below. EKG: Intervals [place] Rate: 132 P: CA: 0 QRS: -42 QRSD: 75 T: 34 QT: 283 QTc: 420 Interpretive Statements ATRIAL FLUTTER/TACHYCARDIA WITH RAPID VENTRICULAR RESPONSE INFERIOR MYOCARDIAL INFARCTION, PROBABLY OLD ST DEPRESSION, CONSIDER SUBENDOCARDIAL INJURY No prior Electronically Signed on 08-11-2020 9:34:05 EDT by Ximena Sparks MICROBIOLOGY: SPUTUM CULTURE: ROUTINE CULTURE RESULTS GRAM STAIN Final QUALITY: GOOD FEW EPITHELIAL CELLS FEW WBCS FEW GRAM POSITIVE COCCI IN PAIRS AND CLUSTERS FEW GRAM NEGATIVE RODS Lab results due in 2-7 days. ECHOCARDIOGRAM Normal LV size with preserved LV systolic function. Estimated left ventricular ejection fraction (LVEF) 60 to 65%. Normal RV size and systolic function. [place] appear grossly normal. Minimally sclerotic aortic valve with preserved mobility. Normal mitral, tricuspid and pulmonic valves. No pericardial effusion. Inferior vena cava is normal size. Normal aortic root and based on limited views also normal aortic arch and abdominal aorta. Doppler interrogation indicates no aortic stenosis and trace insufficiency. There is competent mitral and tricuspid valves. Mitral inflow pattern and tissue Doppler imaging of mitral annulus reveal grade 1 diastolic dysfunction. CONCLUSIONS: 1. Study is of fair technical quality. 2. Normal LV size with preserved LV systolic function and grade 1 diastolic dysfunction. 3. Aortic sclerosis with no stenosis and mild insufficiency. 4. No additional significant valvular disease 5. Likely normal central venous pressure. 6. Unable to estimate pulmonary artery pressure. DD: Rea Woodward MD 08/11/201799 DT: ROSE MARIE 08/11/202006 IMAGIN08/10/20 CT CHEST Pulmonary arteries: The left hilar mass encases the distal left main pulmonary artery and proximal branches with slight narrowing. The main pulmonary artery measures 26 mm. No pulmonary embolism is identified. Aorta: The ascending thoracic aorta measures 33 mm. Lungs: Left hilar mass with abrupt obstruction of the left upper lobe bronchus and lingular bronchus with prominent narrowing of the left lower lobe bronchus. Moderately prominent atelectasis or consolidation of the left upper lobe and lingula with infiltrates and atelectasis in the remaining aerated apical left upper lobe. There is a separate left lower lobe left infrahilar mass measuring 3.1 x 3.2 x 2.1 cm and does tangentially contact the left hilar mass which measures approximately 8.1 x 6.0 x 5.4 cm. Pleural space: Unremarkable. No pneumothorax. No pleural effusion. Heart: Unremarkable. No cardiomegaly. No pericardial effusion. Mediastinal space: There is soft tissue confluence in the subcarinal region and some extension of the left hilar mass into the aorticopulmonary window. A few smaller nodes are noted in the right paratracheal region. Lymph nodes: See "Mediastinal space" finding. Bones/joints: Unremarkable. No acute fracture. Soft tissues: Unremarkable. IMPRESSION: 1. Large left hilar mass consistent with malignancy with adjacent infrahilar left lower lobe mass consistent with metastasis and borderline to mild mediastinal adenopathy also consistent with metastatic disease. 2. Left lung bronchial occlusion and narrowing with moderately prominent atelectasis or consolidation of the left upper lobe and lingula with infiltrates and atelectasis remaining in the aerated apical left upper lobe. 3. Otherwise negative CTA chest. No pulmonary embolism is identified. Electronically signed by: Shahbaz Pickett On 08/11/2020 02:05:53 AM 08/12/20 CT HEAD Bone window settings demonstrate an intact bony calvarium. There is no evidence of skull fracture or incidental bony calvarial lesion. The visualized paranasal sinuses appear clear. No intraorbital abnormality is seen. On soft tissue window setting images; the lateral, third, and fourth ventricles are normal in size and position. Haskins-white differentiation pattern is normal above and below the tentorium. There are is no evidence of intracranial hemorrhage. No mass, edema, infarction, or midline shift is seen. No extra-axial fluid collection is appreciated. IMPRESSION: Negative noncontrast head CT. <Electronically signed by Alvin Mckay > 08/12/20 1547 08/12/20 CT ABD/PELVIS Lung bases: The left lower lobe mass is again visualized. Liver: A 7 mm hypodense nodule in the left lobe of the liver is too small to characterize but probably represents a tiny cyst. Gallbladder: Unremarkable. Spleen: Normal. Adrenals: Normal. Pancreas: Normal. Kidneys: Normal. Small and large bowel: There is sigmoid diverticulosis without evidence of acute diverticulitis. Free fluid: None. Abdominal aorta: No aneurysm or dissection. Adenopathy: None. Appendix: Not inflamed. Osseous structures: There are mild degenerative changes of the spine.. Pelvis: No mass. IMPRESSION: No mass or adenopathy in the abdomen or pelvis. <Electronically signed by Gentry Haskins > 08/12/20 1655 08/13/20 WHOLE BODY BONE SCAN There is a normal distribution of skeletal tracer with uptake in bilateral kidneys and in the urinary bladder. There is no evidence to suggest skeletal metastatic disease. There is mild focus of increased uptake at the greater trochanter on the left consistent with tendinitis. There is mild osteoarthritic uptake in each acromioclavicular joint. No other abnormality. IMPRESSION: There is no evidence to suggest skeletal metastatic disease.. <Electronically signed by Alvin Mckay > 08/13/20 1304 TIME SPENT ON DISCHARGE: Greater than 30 minutes. Vital Signs/I&Os Vital Signs Date Time Temp Pulse Resp B/P (MAP) Pulse Ox O2 Delivery O2 Flow Rate FiO2 08/14/20 08:45 104 146/76 08/14/20 06:00 98.0 18 93 Room Air I&O- Last 24 Hours up to 6 AM 08/14/20 06:00 Intake Total 850 ml Output Total 900 ml Balance -50 ml Laboratory Data Labs 24H Laboratory Tests 2 08/13/20 14:44: Coronavirus (COVID-19)(PCR) NEGATIVE 08/13/20 17:21: Urine Color JENNA, Urine Appearance HAZY, Urine pH 5.0, Urine Specific [place] 1.034, Urine Protein 1+H, Urine Glucose (UA) NEGATIVE, Urine Ketones TRACEH, Urine Blood NEGATIVE, Urine Nitrite NEGATIVE, Urine Bilirubin NEGATIVE, Urine Urobilinogen 0.2, Urine Leukocyte Esterase NEGATIVE, Urine WBC (Auto) 3, Urine RBC (Auto) 6H, Urine Hyaline Casts (Auto) 0, Urine Bacteria (Auto) 1+H, Urine Squamous Epithelial Cells 7, Urine Mucus (Auto) LARGE, Urine Sperm (Auto) 08/14/20 06:41: Nucleated Red Blood Cells % (auto) 0.0, Anion Gap 7L, Glomerular Filtration Rate > 60.0, Calcium Level 9.3 CBC/BMP Laboratory Tests 08/14/20 06:41 Microbiology Microbiology 08/13/20 Gram Stain - Final, Resulted 08/13/20 Sputum Culture, Resulted Pending 08/13/20 Blood Culture, Received Pending 08/13/20 Blood Culture, Received Pending Discharge Medications Scheduled Aspirin (Aspirin) 325 Mg Tablet, 325 MG PO QPM, (Reported) TAKES AROUND 1800 Famotidine (Famotidine) 20 Mg Tablet, 20 MG PO DAILY, (Reported) Levothyroxine Sodium (Synthroid) 112 Mcg Tablet, 112 MCG PO DAILY, (Reported) Scheduled PRN Acetaminophen (Tylenol Extra Strength) 500 Mg Tablet, 1,000 MG PO Q6H PRN for PAIN, (Reported) Diphenhydra/Phenyleph/Acetamin (Allergy-Severe Sinus Amaro Caplet) 1 Each Tablet, 2 TAB PO Q4H PRN for ALLERGY SYMPTOMS/SINUS PAIN, (Reported) Allergies Coded Allergies: No Known Allergies (Verified , 12/13/11) DIONNE ALFORD MD Aug 14, 2020 11:34
[2020-08-14] MEDS ORDERED: LEVO750T14 PO (12:29)
[2020-08-14] MEDS ORDERED: NICO21PAT TD (12:29)
[2020-08-14] MEDS ORDERED: LIDOCAINE VISCOUS 2% SOLN 15ML UDC As Ordered ONE (13:22)
[2020-08-14] MEDS ORDERED: EPINEPHrine 1MG/10ML SYRINGE 1.5IN As Ordered ONE (13:22)
[2020-08-14] MEDS ORDERED: THROMBIN SOLN 20,000 UNITS KIT As Ordered ONE (13:22)
[2020-08-14] MEDS ORDERED: LIDOCAINE 1% SDV 30ML VIAL As Ordered ONE (13:22)
[2020-08-14] MEDS ORDERED: CETACAINE SPRAY 5GM As Ordered ONE (13:28)
[2020-08-14] MEDS ORDERED: ACETYLCYSTEINE 20% 30 ML VIAL As Ordered ONE (13:28)
[2020-08-14] MEDS ORDERED: THROMBIN SOLN 5,000 UNITS VIAL As Ordered ONE (13:28)
[2020-08-14] MEDS ORDERED: PHENYLEPHRINE 0.5% NASAL SPRAY 15 ML As Ordered ONE (13:28)
[2020-08-14] MEDS ORDERED: SUGAMMADEX SODIUM 500 MG/5 ML VIAL (BRIDION) As Ordered ONE (13:55)
[2020-08-14] MEDS ORDERED: ACETAMINOPHEN 1000MG 100ML IV BTL (OFIRMEV) (J0131 PER 10MG) As Ordered ONE (14:16)
[2020-08-14] MEDS ORDERED: NICO14DI24 TD (14:42)
[2020-08-14] MEDS ORDERED: ALBUTEROL SULFATE 2.5 MG/0.5 ML INH NEB SOLN As Ordered ONE (14:45)
[2020-08-14] MEDS ORDERED: METOCLOPRAMIDE INJ 10MG/2ML VIAL (J2765 PER 1) IV PRN (15:30)
[2020-08-14] MEDS ORDERED: ALBUTEROL SULFATE 2.5 MG/0.5 ML INH NEB SOLN INH ONE (15:30)
[2020-08-14] MEDS ORDERED: ONDANSETRON 4MG/2ML VIAL IV PRN (15:30)
[2020-08-14] MEDS ORDERED: fentaNYL 100 MCG/2 ML INJECTION (J3010) IV PRN (15:30)
[2020-08-14] MEDS ORDERED: LR 1,000 ML IV SCH (15:30)
[2020-08-14] MEDS ORDERED: PERCOCET 5MG/325MG TAB PO PRN (15:30)
--- NOTE | 2020-08-14 16:27 | RADONC.CN ---
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 She presented with subacute pneumonia-like cough, left anterior chest pain, and HANSEN. She underwent CXR on 08/10/20 at [facility] ED which showed HAMIDA atelectasis which was followed by CT chest showing a large left hilar mass with satellite lesion in the LLL. The hilar mass is compressing the HAMIDA bronchus and causing atelectasis distally in the HAMIDA and lingula. There is suspicious mediastinal adenopathy as well consistent with metastatic disease. She underwent CT abdomen pelvis and CT head which were n egative. She underwent bronchoscopy on 08/14/[address] Rosa and biopsy of the left hilar mass returned SCLC. She is seen for urgent consideration of RT for her highly symptomatic thoracic disease. Diagnosis/Treatment History Oncologic History As above Interval History Patient seen at bedside in PACU. Reports subacute SOB and HANSEN at home, treated with abx without improvement. Also left anterior chest pain radiating to left axilla. All of this occurring and worsening over the past several weeks. She presented to ED on 08/10/20 found to have A fib. Is not on O2 at home. Currently smokes 1 pack per day. Has tried quitting without success in the past. Finding nicotine patch helpful now. Appetite has been off slightly. No N, V, or abd ominal pain. No weight loss. Past Medical History: Grave's disease Hypothyroid HTN A fib Past Surgical History: D&C at [facility], can't recall date Family History: Non-contributory Social History: 40+ pack year smoker, currently 1 pack per day Allergies / Meds Allergies: Coded Allergies: No Known Allergies (Verified , 12/13/11) Home Meds Active Scripts Nicotine (Nicotine Patch) 14 Mg Patch.td24, 14 MG TD DAILY for 30 Days, #30 PATCH Prov:DIONNE ALFORD MD 08/14/20 levoFLOXacin (levoFLOXacin) 750 Mg Tablet, 750 MG PO DAILY for 7 Days, #7 TAB Prov:DIONNE ALFORD MD 08/14/20 Reported Medications Acetaminophen (Tylenol Extra Strength) 500 Mg Tablet, 1000 MG PO Q6H PRN for PAIN, TAB 08/11/20 Diphenhydra/Phenyleph/Acetamin (Allergy-Severe Sinus Amaro Caplet) 1 Each Tablet, 2 TAB PO Q4H PRN for ALLERGY SYMPTOMS/SINUS PAIN, TAB 08/11/20 Famotidine (Famotidine) 20 Mg Tablet, 20 MG PO DAILY, TAB 08/11/20 Levothyroxine Sodium (Synthroid) 112 Mcg Tablet, 112 MCG PO DAILY, TAB 08/11/20 Aspirin (Aspirin) 325 Mg Tablet, 325 MG PO QPM, TAB TAKES AROUND 1800 08/11/20 Discontinued Reported Medications Aspirin (Aspirin) 81 Mg Tab.chew, 325 MG PO DAILY for pain for 30 Days, #30 TAB 04/22/19 [Qp] No Conflict Check 04/22/19 [tapazole] No Conflict Check, 20 MG PO Q8H 12/19/11 Ranitidine HCl (Ranitidine HCl) 150 Mg Tablet, 150 MG PO DAILY for 30 Days, #60 TAB 04/22/19 Levothyroxine Sodium (LEVOTHYROXINE SODIUM) 100 Mcg Tablet, 112 MCG PO DAILY for 30 Days, #30 TAB 04/22/19 Discontinued Scripts Benzonatate (Tessalon Perle) 100 Mg Capsule, 1 CAP PO TID for cough, #15 CAP Prov:ANGIE ZEE PA-C 04/22/19 Amoxicillin/Potassium Clav (Augmentin 875-125 Tablet) 1 Each Tablet, 1 TAB PO BID for 7 Days, #14 TAB Prov:ANGIE ZEE PA-C 04/22/19 Review of Systems Constitutional: Denies: Chills, Fever, Night Sweats, Weight Loss Eyes: Denies: Pain, Vision change HEENT: Denies: Head Aches, Dysphagia, Sore Throat Skin: Denies: Rash, Lesions, Bruising Pulmonary: Reports: Dyspnea, Cough, Pleuritic Chest Pain Cardiovascular: Denies: Chest Pain, Palpitations, Edema Gastrointestinal: Denies: Nausea, Vomiting, Abdominal Pain, Diarrhea Genitourinary: Denies: Dysuria, Frequency, Incontinence Hematologic: Denies: Bruising, Petecchia, Enlarged Lymph Nodes Musculoskeletal: Denies: Neck pain, Back pain Neurological: Denies: Weakness, Numbness, Incoordination Psych: Reports: Mood Normal; Denies: Memory Issues, Thoughts of Self Harm Vital Signs Vital Signs Date Time Temp Pulse Resp B/P (MAP) Pulse Ox O2 Delivery O2 Flow Rate FiO2 08/14/20 14:55 99 16 143/61 (88) 100 08/14/20 14:45 96.9 Non-Rebreather 10 General Exam: Positive: Alert, Cooperative, No Acute Distress Eye Exam: Positive: PERRLA, EOMI ENT EXAM: Positive: Mucous membr. moist/pink, Pharynx Normal Neck Exam: Negative: Thyromegaly, Lymphadenopathy Chest Exam: Positive: Diminished (Diminished left chest globally); Negative: Rales, Rhonchi, Wheezing Heart Exam: Positive: Rate Normal, Regular Rhythm Abdomen Exam: Positive: Soft; Negative: Tenderness, Mass Extremity Exam: Negative: Edema, Tenderness Skin Exam: Negative: Nl turgor and temperature, Rash, Breakdown, Lesion, Pruritus, Other skin issue Neuro Exam: Positive: Normal Gait, Normal Speech, Cranial Nerves 3-12 NL Psych Exam: Positive: Mental status NL, Mood NL, Memory Intact Diagnostic and Laboratory Diagnostic Review Radiologic images, relevant labs and pathology reports were personally reviewed and discussed with Ms. Pickett. Laboratory Tests 08/13/20 05:07 08/14/20 06:41 Laboratory Tests 08/13/20 05:07: White Blood Count 8.8, Red Blood Count 4.86, Hemoglobin 15.0, Hematocrit 45.6, Mean Corpuscular Volume 93.8, Mean Corpuscular Hemoglobin 30.9, Mean Corpuscular Hemoglobin Concent 32.9, Red Cell Distribution Width 12.5, Platelet Count 327, Nucleated Red Blood Cells % (auto) 0.0, Sodium Level 139, Potassium Level 4.2, Chloride Level 105, Carbon Dioxide Level 26, Anion Gap 8, Blood Urea Nitrogen 13, Creatinine 0.91, Glomerular Filtration Rate > 60.0, Fasting Glucose 109H, Calcium Level 9.8, Magnesium Level 2.2, Total Bilirubin 0.5, Aspartate Amino Transf (AST/SGOT) 15, Alanine Aminotransferase (ALT/SGPT) 14, Alkaline Phosphatase 69, Total Creatine Kinase 132, Creatine Kinase MB 2.5, Creatine Kinase MB Relative Index 1.89, Troponin I < 0.02, Total Protein 7.1, Albumin 4.0, Albumin/Globulin Ratio 1.3 08/13/20 09:31: Prothrombin Time 13.2, Prothromb Time International Ratio 0.98 08/13/20 14:44: Coronavirus (COVID-19)(PCR) NEGATIVE 08/13/20 17:21: Urine Color JENNA, Urine Appearance HAZY, Urine pH 5.0, Urine Specific [place] 1.034, Urine Protein 1+H, Urine Glucose (UA) NEGATIVE, Urine Ketones TRACEH, Urine Blood NEGATIVE, Urine Nitrite NEGATIVE, Urine Bilirubin NEGATIVE, Urine Urobilinogen 0.2, Urine Leukocyte Esterase NEGATIVE, Urine WBC (Auto) 3, Urine RBC (Auto) 6H, Urine Hyaline Casts (Auto) 0, Urine Bacteria (Auto) 1+H, Urine Squamous Epithelial Cells 7, Urine Mucus (Auto) LARGE, Urine Sperm (Auto) 08/14/20 06:41: White Blood Count 6.9, Red Blood Count 4.34, Hemoglobin 13.3, Hematocrit 40.6, Mean Corpuscular Volume 93.5, Mean Corpuscular Hemoglobin 30.6, Mean Corpuscular Hemoglobin Concent 32.8, Red Cell Distribution Width 12.4, Platelet Count 296, Nucleated Red Blood Cells % (auto) 0.0, Sodium Level 137, Potassium Level 4.0, Chloride Level 105, Carbon Dioxide Level 25, Anion Gap 7L, Blood Urea Nitrogen 19H, Creatinine 0.80, Glomerular Filtration Rate > 60.0, Fasting Glucose 103H, Calcium Level 9.3 Assessment and Plan Impression Ms. 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 She presented with subacute pneumonia-like cough, left anterior chest pain, and HANSEN. She underwent CXR on 08/10/20 at [facility] ED which showed HAMIDA atelectasis which was followed by CT chest showing a large left hilar mass with satellite lesion in the LLL. The hilar mass is compressing the HAMIDA bronchus and causing atelectasis distally in the HAMIDA and lingula. There is suspicious mediastinal adenopathy as well consistent with metastatic disease. She underwent CT abdomen pelvis and CT head which were negative. She underwent bronchoscopy on 08/14/[address] Rosa and biopsy of the left hilar mass returned SCLC. She is seen for urgent consideration of RT for her highly symptomatic thoracic disease. Stage AJCC stage IIIB [id number] LS SCLC Performance Status ECOG 0 Plan We had an extensive discussion with Ms. Pickett regarding the diagnosis at hand and available therapeutic options. In reviewing her imaging to date, she has no evidence of metastatic disease outside of the chest. I think she should have a baseline MRI to complete her staging. A PET-CT is also a reasonable consideration to rule out occult metastases, but this would not change my initial management, and I defer to medical oncology regarding the utility of this in this setting. She has a large burden of disease in the left chest and mediastinum causing atelectasis, and impinging on the left pulmonary artery. I recommend we start radiation urgently given the radiographic findings and how symptomatic she is. I will simulate her today while inpatient. If she is discharged before Monday she can resume treatment as an outpatient. I will start with an AP/PA plan and convert to VMAT-based treatment once available. I will give 66 Gy in 33 fractions. Chemotherapy is likely to begin soon as well and run concurrently. We discussed the logistics of receiving radiation therapy in detail including the need for a 1-time planning session. We reviewed the side effects of treatment including fatigue, esophagitis and pneumonitis. After discussing the risks, benefits and alternatives to radiation therapy, Ms. Pickett was amenable to pursuing radiotherapy. All questions were answered to the patient's satisfaction and informed consent for treatment was obtained. We instructed the patient that if there were any questions,concerns or changes in clinical status in the interim to contact us. Recommendations Concurrent chemoradiation 66 Gy in 33 fractions to begin early next week (08/17/20 afternoon most likely) Simulation today Chemotherapy per medical oncology MRI head to complete staging JANEL SAPP MD Aug 14, 2020 16:27
--- NOTE | 2020-08-14 16:34 | CR.PDOC ---
General Date of Consultation: Aug 14, 2020 Consultation REASON FOR CONSULTATION/CHIEF COMPLAINT: [ Small cell lung cancer ]. HISTORY OF PRESENT ILLNESS: [This is a 59 year old lady with greater than forty pack year smoking history Admitted to the hospital with shortness of breath. Scan of her chest showing a large left side hilar mass. She was see and evaluated by pulmonary. She has small sharita lung cancer. ALLERGIES: Please see below. HOME MEDICATIONS: Please see below. PAST MEDICAL HISTORY: 1. [Atrial fibrillation ]. 2. [graves disease . PAST SURGICAL HISTORY: 1. [D&C 2. FAMILY HISTORY: Father: [father had pancreatic cancer ] Mother: Siblings: Children: Hereditary Diseases: Unexpected deaths due to medical reasons: SOCIAL HISTORY: Marital status and/or living arrangements: Children: Employment: Tobacco use:[1-1/2ppd smoker since age 18 ] ETOH: Illicit drug use: IV drug use: Other relevant social factors: REVIEW OF SYSTEMS: CONSTITUTIONAL: [positives listed . HEENT: . CARDIOVASCULAR: [fast heart palpitations . RESPIRATORY: [shortness of breath]. GENITOURINARY: . MUSCULOSKELETAL: . GASTROINTESTINAL: . SKIN: . NEUROLOGICAL: . PSYCHIATRIC: . ENDOCRINE: . HEMATOLOGIC/LYMPHATIC: . ALLERGIC/IMMUNOLOGIC: . PHYSICAL EXAMINATION: VITAL SIGNS: Please see below. GENERAL APPEARANCE: [ Seen on bed awake and alert ]. HEENT: Normal . RESPIRATORY: [Bilateral breath sounds n wheeze CARDIOVASCULAR: [ regular at the time of my exam ]. ABDOMEN: [soft non tender ]. EXTREMITIES: [no edema ]. NEUROLOGICAL: [cranial nerves intact ]. PSYCHIATRIC: [mood normal . LABORATORY DATA: Please see below. ASSESSMENT/PLAN: 1. [ small cell lung cancer ]. 2. [pneumonia Plan: She has already been seen by radiation oncology . She is a candidate for chemotherapy. We will see her in the office next week. Vital Signs/I&O Vital Signs Date Time Temp Pulse Resp B/P (MAP) Pulse Ox O2 Delivery O2 Flow Rate FiO2 08/14/20 15:20 96 16 144/63 (90) 97 Nasal Cannula 2 08/14/20 15:10 97.6 I&O- Last 24 Hours up to 6 AM 08/14/20 06:00 Intake Total 850 ml Output Total 900 ml Balance -50 ml Laboratory Data Labs 24H Laboratory Tests 2 08/13/20 17:21: Urine Color JENNA, Urine Appearance HAZY, Urine pH 5.0, Urine Specific [place] 1.034, Urine Protein 1+H, Urine Glucose (UA) NEGATIVE, Urine Ketones TRACEH, Urine Blood NEGATIVE, Urine Nitrite NEGATIVE, Urine Bilirubin NEGATIVE, Urine Urobilinogen 0.2, Urine Leukocyte Esterase NEGATIVE, Urine WBC (Auto) 3, Urine RBC (Auto) 6H, Urine Hyaline Casts (Auto) 0, Urine Bacteria (Auto) 1+H, Urine Squamous Epithelial Cells 7, Urine Mucus (Auto) LARGE, Urine Sperm (Auto) 08/14/20 06:41: Nucleated Red Blood Cells % (auto) 0.0, Anion Gap 7L, Glomerular Filtration Rate > 60.0, Calcium Level 9.3 CBC/BMP Laboratory Tests 08/14/20 06:41 Microbiology Microbiology 08/14/20 Fungal Smear, Received Pending 08/14/20 Fungal Culture, Received Pending 08/14/20 Acid Fast Stain, Received Pending 08/14/20 Mycobacterial Culture, Received Pending 08/14/20 Gram Stain - Final, Resulted 08/14/20 Bronchial Aspirate Culture, Resulted Pending 08/13/20 Gram Stain - Final, Resulted 08/13/20 Sputum Culture, Resulted Pending 08/13/20 Blood Culture - Preliminary, Resulted No growth after 24 hours . All specim... 08/13/20 Blood Culture - Preliminary, Resulted No growth after 24 hours . All specim... Allergies Coded Allergies: No Known Allergies (Verified , 12/13/11) Home Medications Scheduled Aspirin (Aspirin) 325 Mg Tablet, 325 MG PO QPM, (Reported) TAKES AROUND 1800 Famotidine (Famotidine) 20 Mg Tablet, 20 MG PO DAILY, (Reported) Levothyroxine Sodium (Synthroid) 112 Mcg Tablet, 112 MCG PO DAILY, (Reported) Nicotine (Nicotine Patch) 14 Mg Patch.td24, 14 MG TD DAILY for 30 Days, #30 levoFLOXacin (levoFLOXacin) 750 Mg Tablet, 750 MG PO DAILY for 7 Days, #7 Scheduled PRN Acetaminophen (Tylenol Extra Strength) 500 Mg Tablet, 1,000 MG PO Q6H PRN for PAIN, (Reported) Diphenhydra/Phenyleph/Acetamin (Allergy-Severe Sinus Amaro Caplet) 1 Each Tablet, 2 TAB PO Q4H PRN for ALLERGY SYMPTOMS/SINUS PAIN, (Reported) MAVERICK RAMIREZ MD Aug 14, 2020 16:34
--- NOTE | 2020-08-17 11:40 | RO ---
DATE: 08/14/2020 PROCEDURE: Fiberoptic bronchoscopy with washes, brushes, biopsies, and photos. SURGEON: Abdifatah Rosa M.D. PREOPERATIVE DIAGNOSIS: Left lung mass. POSTOPERATIVE DIAGNOSIS: Left lung mass with chronic bronchitis. ANESTHESIA: General. CONSENT: Informed consent was obtained prior to the procedure. OTHER MEDICATIONS: 5000 units topical thrombin. OPERATIVE FINDINGS: * Near complete obstruction of the proximal left upper lobe and proximal left lower lobe. * Diffuse changes of chronic bronchitis. PROCEDURE: After the patient was identified and the above anesthesia was given. Fiberoptic bronchoscope was easily passed through the existing endotracheal tube. The tube was initially just above the viviana and was repositioned. Right lung was entered first. All segments, sub-segments, upper, middle and lower lobes were easily identified and widely patent. Diffuse changes of mild chronic bronchitis were noted. Attention was then turned to the left. Left mainstem was widely patent. In the distal left mainstem, just proximal to the take-off of the left upper lobe, significant submucosal innervation was identified. It should be noted that the viviana was somewhat broadened and did not move well. The left upper lobe was completely obstructed by exophytic tumor mass and significant submucosal infiltration was noted of the entire area. This involvement extended into the left lower lobe to the point where the scope could not be passed into the left lower lobe; although, there was a residual orifice noted. Multiple biopsies were taken. Touch prep shows significant tumor, highly worrisome for small cell carcinoma. Multiple biopsies were taken for permanent section. Only minimal bleeding was encountered. When adequate hemostasis was assured, the scope was then withdrawn and procedure terminated. Care was then turned over to anesthesia for extubation. No immediate complications were encountered during the procedure. The patient tolerated the procedure well and oxygen saturation remained well-above 90% throughout the examination. [facility], [place]
[2020-08-17] MEDS ORDERED: PROAAER10 INH (15:17)
[2020-08-17] MEDS ORDERED: NICO14DI31 (15:20)
== END 2020-08-14 18:35 | disposition home or self-care (01) | DRG 136 ==
LOC: M ED 21:13 → M ED INP 08-11 03:22 → M MSPAV 08-11 05:45 → M PCU 08-13 03:53 → M MSPAV 08-13 14:48
PROVIDERS: ADMIT Internal Medicine; ATTEND General Practice
PROC: 0BBG8ZX Excision of Left Upper Lung Lobe, Via Natural or Artificial Opening Endoscopic, Diagnostic (ICD-10-PCS; principal; 2020-08-14 12:00)
DX: C34.02 Malignant neoplasm of left main bronchus (principal); J18.9 Pneumonia, unspecified organism; I48.0 Paroxysmal atrial fibrillation; I10 Essential (primary) hypertension; E03.9 Hypothyroidism, unspecified; K21.9 Gastro-esophageal reflux disease without esophagitis; F17.200 Nicotine dependence, unspecified, uncomplicated; K57.30 Diverticulosis of large intestine without perforation or abscess without bleeding; Z79.82 Long term (current) use of aspirin; Z79.899 Other long term (current) drug therapy; F12.90 Cannabis use, unspecified, uncomplicated; F41.9 Anxiety disorder, unspecified

== ENCOUNTER 2020-08-18 06:17 | Emergency (ER) | payer SELFPAY ==
[~2020-08-18] VITALS: Ht 160 cm; Wt 82.4 kg
[~2020-08-18 06:17] MED LIST changes: +ACET-897 PO; +BAYE325T12 PO; +FAMO20TA4 PO; +GNPTAB PO; +LEVO750T14 PO; +NICO14DI24 TD; +NICO14DI31; +NICO21PAT TD; +PROAAER10 INH; +SYNT112T2 PO
[2020-08-18] MEDS ORDERED: predniSONE 20 MG TAB PO ONE (07:00)
[2020-08-18] MEDS ORDERED: diphenhydrAMINE 50MG CAP PO ONE (07:00)
[2020-08-18 08:32] LABS: HEMOGLOBIN 12.9 g/dl (12.0-15.5); MEAN CORPUSCULAR HEMOGLOBIN 32.3 pg (27.0-33.0); MEAN CORPUSCULAR HGB CONC 33.9 g/dl (32.0-36.5); MEAN CORPUSCULAR VOLUME 95.2 fl (80.0-96.0); PLATELET COUNT, AUTOMATED 264 10^3/uL (150-450); RED BLOOD COUNT 3.99 10^6/uL (4.00-5.40); WHITE BLOOD COUNT 7.3 10^3/uL (4.0-10.0)
[2020-08-18 09:08] LABS: ATYPICAL LYMPH 3 % (0-5); EOSINOPHILS 3 % (0-3); LYMPHOCYTES 12 % (16-44); MONOCYTES 6 % (0-5); NEUTROPHILS 76 % (28-66); PLATELET ESTIMATE NORMAL (NORMAL)
[2020-08-18] MEDS ORDERED: PRED20TA PO (09:12)
[2020-08-18] MEDS ORDERED: BENA25CA4 PO (09:12)
[2020-08-18 09:20] VITALS: BP 140/80
[2020-08-18] MEDS ORDERED: ONDA8TAB10 PO (10:23)
[2020-08-28] MEDS ORDERED: NICO21DI37 TOP (07:57)
[2020-09-02] MEDS ORDERED: MAGICMW SSP (08:35)
[2020-09-07] MEDS ORDERED: MECL12.589 PO (08:19)
== END 2020-08-18 09:35 | disposition home or self-care (01) ==
LOC: M ED 06:17
DX: L50.9 Urticaria, unspecified (principal); T36.8X5A Adverse effect of other systemic antibiotics, initial encounter; Y92.9 Unspecified place or not applicable; Y93.9 Activity, unspecified; C34.90 Malignant neoplasm of unspecified part of unspecified bronchus or lung; Z87.01 Personal history of pneumonia (recurrent); Z87.891 Personal history of nicotine dependence; Z79.82 Long term (current) use of aspirin; Z79.899 Other long term (current) drug therapy

== ENCOUNTER → 2020-09-14 | Outpatient (RCR) | payer SELFPAY ==
--- NOTE | 2020-09-02 08:34 | RADENCPD ---
Date/Time of Encounter Date of Encounter: Sep 02, 2020 Time of Encounter: 08:30 Encounter Complains of new onset dysphagia/odynophagia. Explained this is typical given she is in the 3rd week of treatment. Chemo started on 08/31/20. Offered magic mouthwash v low dose oxycodone. She elects the former. Rx for magic mouthwash sent to JANEL Urbina MD Sep 02, 2020 08:34
--- NOTE | 2020-09-09 08:41 | RADENCPD ---
Date/Time of Encounter Date of Encounter: Sep 09, 2020 Time of Encounter: 08:30 Encounter Briefly patient reports increased odynophagia. Refractory to BLM. Still able to take PO but with difficulty. Explained that this is expected esophagitis. Addition of chemotherapy this past week typically makes it worse. She would benefit from liquid oxycodone 5 mg q4h PRN. Rx sent to [facility] pharmacy. JANEL SAPP MD Sep 09, 2020 08:41
[~2020-09-14] MED LIST changes: +BENA25CA4 PO; +MAGICMW SSP; +MECL12.590 PO; +NICO21DI37 TOP; +ONDA8TAB10 PO; +OXYC1SOL3 PO; +PRED20TA PO
== END ==
LOC: M ONCR 08-17 14:23
PROVIDERS: ATTEND General Practice
DX: C34.12 Malignant neoplasm of upper lobe, left bronchus or lung (principal)

== ENCOUNTER → 2020-09-18 | Outpatient (CLI) | payer BC ==
[~2020-09-18] MED LIST changes: +LIDOCAINE 1% MDV 20ML VIAL As Ordered ONE; +MIDAZOLAM INJ 2MG/2ML VIAL (J2250 PER 1MG) As Ordered ONE; +NS 1,000 ML IV SCH; +ceFAZolin 2 GM/D5W 50 ML IV BAG (J0690 PER 500MG) As Ordered ONE; +ceFAZolin SOD 2 GM in IV 1 EA IV ONE; +diphenhydrAMINE 50MG/ML VIAL (J1200) As Ordered ONE; +fentaNYL 100 MCG/2 ML INJECTION (J3010) As Ordered ONE
--- NOTE | 2020-09-18 12:22 | IRHP ---
[facility] IR Pre-Procedure H & P General Date of Service: Sep 18, 2020 Procedure: Same Day Surgery Interval History and Physical I have seen the patient and reviewed last H & P performed within 30 days. There is no significant interval change. History of Present Illness Chief Complaint The patient is a 59-year-old female admitted with a reason for visit of Hilar Mass, For Chemotherapy. PRE-PROCEDURE DIAGNOSIS: lung cancer HEART: normal rate. LUNGS: normal breathing at rest. ASA Classification ASA Classification: III-Severe systemic dis. Mallampati Score: II NPO: Yes Problems with prior sedation: No Obstructive Sleep Apnea: No Plan moderate sedation Allergies Coded Allergies: levofloxacin (Verified Allergy, Mild, RASH, 09/16/20) Home Medications Scheduled Aspirin (Aspirin), 325 MG PO QPM, (Reported) Famotidine (Famotidine), 20 MG PO DAILY, (Reported) Levothyroxine Sodium (Synthroid), 112 MCG PO DAILY, (Reported) Meclizine HCl (Meclizine HCl), 12.5 MG PO TID Ondansetron HCl (Ondansetron HCl), 1 TAB PO TID Scheduled PRN Acetaminophen (Tylenol Extra Strength), 1,000 MG PO Q6H PRN for PAIN, (Reported) Diphenhydra/Phenyleph/Acetamin (Allergy-Severe Sinus Amaro Caplet), 2 TAB PO Q4H PRN for ALLERGY SYMPTOMS/SINUS PAIN, (Reported) Magic Mouthwash (First-Mouthwash Blm), 10 ML SSP QIDP PRN for esophagitis Oxycodone HCl (Oxycodone HCl), 10 ML PO Q4H PRN for Esophagitis Discontinued Medications Nicotine (Nicotine Patch), (Reported) Discontinued Reason: Pt states not taking Nicotine (Nicotine Patch), 1 PATCH TOP DAILY, (Reported) Discontinued Reason: Pt states not taking VS, I&O, 24H, Fishbone Vital Signs/I&O Vital Signs Date Time Temp Pulse Resp B/P (MAP) Pulse Ox O2 Delivery O2 Flow Rate FiO2 09/18/20 12:15 94 16 96 Room Air 09/18/20 11:29 2 09/18/20 09:55 97.0 ROMINA VIERA MD Sep 18, 2020 12:22
--- NOTE | 2020-09-18 12:23 | POST-OPPD ---
Postoperative Procedure Note Date Of Procedure: Sep 18, 2020 Time Of Procedure: 12:22 IR ultrasound and fluoroscopy guided port placement IR Ultrasound of the neck. IR Moderate sedation. Clinical indication: Lung cancer. Physician: Dr. Salamanca. Procedure: The patient was advised of the benefits, risks, and alternatives of the procedure and informed consent was obtained. A time-out was performed with verification of the patient's name, MRN, site of procedure and type of procedure to be performed. The patient was positioned in the supine position on the angiographic table. The site was prepped and draped in the usual sterile fashion. Moderate sedation was performed by the physician including the presence of an independent trained RN who assisted and monitored the patient's level of consciousness and physiologic status. Following the administration of fentanyl and Versed , the physician spent 45 minutes of continuous face to face time with the patient. Ultrasound of the neck reveals a patent and compressible right internal jugular vein. A activity aid radiograph reveals hilar fullness. The neck and anterior chest wall were anesthetized with lidocaine. The right internal jugular vein was accessed using a microintroducer needle under ultrasound guidance, via a lateral approach. An 018 wire was advanced into the superior vena cava, the needle was removed and a microsheath was placed. An Amplatz wire was then passed into the inferior vena cava. An incision at the internal jugular vein access site and anterior chest wall were made using a scalpel. An incision was made at the anterior chest wall. A small pocket was created using a combination of blunt and sharp dissection. A tunneling device was then used to pass the catheter from the pocket to the neck puncture site. An 8- [employer] Smart power port was then positioned in the pocket. The catheter was then measured and cut. The introducer sheath was exchanged for a peel-away sheath. The catheter was passed through the peel-away sheath into the internal jugular vein and the peel- away sheath was removed. The port tip was positioned at the cavoatrial junction. The port was then accessed with a Blackwood needle. The port flushes and aspirates well. The puncture site in the neck was closed. The chest wall incision was then closed with 2-0 Vicryl and 4-0 Monocryl. Glue and Steri- Strips were applied. A sterile dressing was then applied. The patient tolerated the procedure well and was returned to the PRU in stable condition. Estimated blood loss: <5 ml. Complications: None. Conclusion: 1. Successful placement of an 8-[place] Smart power port via the right internal jugular vein. The port is ready for immediate use. 2. Patient to follow up in IR clinic in 2 weeks. Thank you for this referral. ROMINA SALAMANCA MD Sep 18, 2020 12:23
[2020-09-18 13:43] VITALS: BP 110/60
== END ==
LOC: M IRPRO 09:38
PROVIDERS: ATTEND Radiology Diagnostic Radiology
DX: C34.90 Malignant neoplasm of unspecified part of unspecified bronchus or lung (principal); Z79.82 Long term (current) use of aspirin; Z79.899 Other long term (current) drug therapy; Z88.1 Allergy status to other antibiotic agents
CPT/HCPCS: 36561; 99152; 99153; C1769; C1788; C1894; J0690; J1642; J1644; J2250; J3010

== ENCOUNTER 2020-09-28 08:50 | Emergency (ER) | payer BC, SELFPAY ==
[~2020-09-28] VITALS: Ht 160 cm; Wt 73.6 kg
[~2020-09-28 08:50] MED LIST changes: -LIDOCAINE 1% MDV 20ML VIAL As Ordered ONE; -MIDAZOLAM INJ 2MG/2ML VIAL (J2250 PER 1MG) As Ordered ONE; -NS 1,000 ML IV SCH; -ceFAZolin 2 GM/D5W 50 ML IV BAG (J0690 PER 500MG) As Ordered ONE; -ceFAZolin SOD 2 GM in IV 1 EA IV ONE; -diphenhydrAMINE 50MG/ML VIAL (J1200) As Ordered ONE; -fentaNYL 100 MCG/2 ML INJECTION (J3010) As Ordered ONE
[2020-09-28 09:25] LABS: HEMATOCRIT 31.7 % (36.0-47.0); HEMOGLOBIN 10.7 g/dl (12.0-15.5); MEAN CORPUSCULAR HEMOGLOBIN 31.3 pg (27.0-33.0); MEAN CORPUSCULAR HGB CONC 33.8 g/dl (32.0-36.5); MEAN CORPUSCULAR VOLUME 92.7 fl (80.0-96.0); PLATELET COUNT, AUTOMATED 136 10^3/uL (150-450); RED BLOOD COUNT 3.42 10^6/uL (4.00-5.40); WHITE BLOOD COUNT 2.2 10^3/uL (4.0-10.0)
--- NOTE | 2020-09-28 09:27 | REP ---
INDICATION: SYNCOPE. COMPARISON: Comparison study August 10, 2020. December 14, 2011 study is also reviewed. TECHNIQUE: Portable upright AP chest radiograph. FINDINGS: There is bibasilar coarse platelike atelectasis, left more so than right. Lung og are otherwise clear. The pleural angles are sharp. The heart is not enlarged. There is a right-sided Mjpzms-A-Zvyy catheter visible. Previous study showed lobar collapse of the left upper lobe which has resolved. There is no visible mediastinal or hilar mass today.. IMPRESSION: Coarse bibasilar discoid atelectasis. Pbzgwn-S-Srxz catheter and monitoring electrodes. Otherwise no acute disease.. <Electronically signed by Alvin Mckay > 09/28/20 0929
[2020-09-28 09:34] LABS: INR 0.92; PROTHROMBIN TIME 12.6 SECONDS (12.5-14.3)
[2020-09-28 09:35] LABS: PARTIAL THROMBOPLASTIN TIME 28.4 SECONDS (24.2-38.5)
[2020-09-28 09:43] LABS: EOSINOPHILS 2 % (0-3); LYMPHOCYTES 11 % (16-44); MONOCYTES 1 % (0-5); NEUTROPHILS 86 % (28-66)
[2020-09-28 09:44] LABS: PLATELET ESTIMATE NORMAL (NORMAL)
[2020-09-28] MEDS ORDERED: NS 1,000 ML IV ONE ×2 (09:45→11:45)
[2020-09-28 10:14] LABS: ALBUMIN 3.4 GM/DL (3.2-5.2); ALT/SGPT 14 U/L (12-78); AMYLASE 53 U/L (25-115); BILIRUBIN,DIRECT 0.2 MG/DL (0.0-0.2); BILIRUBIN,TOTAL 0.7 MG/DL (0.2-1.0); BLOOD UREA NITROGEN 32 MG/DL (7-18); CALCIUM LEVEL 8.6 MG/DL (8.8-10.2); CARBON DIOXIDE LEVEL 26 MEQ/L (21-32); CHLORIDE LEVEL 102 MEQ/L (98-107); CK-MB VALUE MASS < 1.0 NG/ML (<3.6); CPK CREATINE PHOSPHOKINASE 40 U/L (26-192); CREATININE FOR GFR 1.45 MG/DL (0.55-1.30); FREE T4 1.37 NG/DL (0.76-1.46); GLOMERULAR FILTRATION RATE 39.2 (>45); GLUCOSE, FASTING 140 MG/DL (70-100); LIPASE 53 U/L (73-393); POTASSIUM SERUM 2.7 MEQ/L (3.5-5.1); SODIUM LEVEL 139 MEQ/L (136-145); TOTAL PROTEIN 6.1 GM/DL (6.4-8.2); TROPONIN I < 0.02 NG/ML (< 0.10)
[2020-09-28] MEDS ORDERED: POTASSIUM CHLORIDE 10 MEQ SR TABLET PO ONE (10:30)
[2020-09-28] MEDS ORDERED: POTA1TAB14 PO (10:51)
[2020-09-28 14:19] VITALS: BP 118/62
[2020-09-28] MEDS ORDERED: OXYC1SOL3 PO (14:51)
--- NOTE | 2020-09-29 05:34 | ECGEPIP ---
[facility] - ED Test Date: 2020-09-28 Pat Name: TETE WHITAKER Department: Room: - Gender: Female Manager Forms: lebron : 1960 Requested By: Wilfred Awad Order Number: [id number] Reading MD: Wilfred Ríos Measurements Intervals [place] Rate: 72 P: 18 [place]: 129 QRS: -20 QRSD: 85 T: 48 QT: 405 QTc: 446 Interpretive Statements SINUS RHYTHM WITH SINUS ARRHYTHMIA Electronically Signed on 09-29-2020 5:34:06 EST by Wilfred Ríos
== END 2020-09-28 14:22 | disposition home or self-care (01) ==
LOC: M ED 08:50
DX: R42 Dizziness and giddiness (principal); E86.0 Dehydration; C34.90 Malignant neoplasm of unspecified part of unspecified bronchus or lung; F17.200 Nicotine dependence, unspecified, uncomplicated; Z95.828 Presence of other vascular implants and grafts; Z79.82 Long term (current) use of aspirin; Z79.899 Other long term (current) drug therapy; Z91.89 Other specified personal risk factors, not elsewhere classified; Z88.8 Allergy status to other drugs, medicaments and biological substances

== ENCOUNTER 2020-09-29 07:57 | Outpatient (RCR) | payer BC, SELFPAY ==
--- NOTE | 2020-09-28 09:13 | RADENCPD ---
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 She received radiation this morning and last chemotherapy was the week of 09/21/20. She presented for radiation treatment to her chest this morning and noted she did not feel well over the weekend. She has been dealing with esophagitis from radiation, and has medication for this, but in addition she complained of cramping abdominal pain. Her last BM was this morning. Her weight has decreased ~6 lbs in the past week. Vitals at the time of initial assessment were: Wt 163 lb (from 169) T 98.4 P 95 RR 18 BP 107/64 Pain 6 (abdomen) Fatigue 3 During her visit she became distressed and stated she felt clammy and dizzy. Repeat vitals were called for. In the process of reassessing her BP she became unresponsive for ~ 20 seconds, eyes were forward fixed and pupils were unresponsive initially. There were no abnormal movements or response to sternal rub. A code was called. When help arrived shortly after the patient came to and was again responsive to sternal rub and eventually her name. She regained full orientation and was sent to the ED for evaluation of the syncopal episode. Her was called and updated. JANEL SAPP MD Sep 28, 2020 09:13
[~2020-09-29 07:57] MED LIST changes: +POTA1TAB14 PO
[2020-10-07] MEDS ORDERED: OXYC1SOL3 PO (11:28)
[2020-10-13] MEDS ORDERED: ONDA8TAB10 PO (08:22)
== END 2020-10-15 ==
LOC: M ONCR 07:57
PROVIDERS: ATTEND General Practice
DX: C34.12 Malignant neoplasm of upper lobe, left bronchus or lung (principal)

== ENCOUNTER → 2020-10-20 | Outpatient (POV) | payer BC ==
--- NOTE | 2020-10-26 11:47 | IRPN ---
[facility] IR Progress Note IR Progress Note DATE: Oct 20, 2020 Patient agreed to this telephone follow-up. Duration of call 5 minutes. FOLLOW-UP: Patient status post port placement. Patient denies any fevers, chills, pain at site or discharge. Patient states port was used without any issues. ON EXAMINATION: No video on patient side. IMPRESSION: Status post port placement, patient doing well. No further follow-up scheduled unless initiated by patient and/or referring provider. Thank you for this referral Allergies Coded Allergies: silver (Verified Allergy, Severe, Rash , 09/21/20) Any Tegaderm product TAPE (Verified Allergy, Mild, 09/21/20) Skin peels and rash from Tegaderm levofloxacin (Verified Allergy, Mild, RASH, 09/16/20) ROMINA VIERA MD Oct 26, 2020 11:47
== END ==
LOC: M TMIRPOV 08:32
PROVIDERS: ATTEND Radiology Diagnostic Radiology
DX: Z45.2 Encounter for adjustment and management of vascular access device (principal)

== ENCOUNTER → 2020-11-03 | Outpatient (CLI) | payer BC ==
--- NOTE | 2020-11-04 08:30 | REP ---
INDICATION: LUNG CANCER COMPARISON: 08/10/2020 TECHNIQUE: PA and lateral. FINDINGS: Brhjix-T-Phij with tip in the SVC. The mediastinum and cardiac silhouette are normal. The lung og are essentially clear and without focal opacity/consolidation, effusion, or pneumothorax. The skeletal structures are intact and normal. IMPRESSION: No obvious acute cardiopulmonary process. <Electronically signed by Misael Rodríguez > 11/04/20 [id number]
== END ==
LOC: M RAD 13:58
PROVIDERS: ATTEND Internal Medicine Hematology & Oncology
DX: C34.90 Malignant neoplasm of unspecified part of unspecified bronchus or lung (principal)

== ENCOUNTER → 2020-11-10 | Outpatient (CLI) | payer BC ==
[~2020-11-10] MED LIST changes: +PROHANCE 279.3MG/ML 5ML VIAL As Ordered ONE
--- NOTE | 2020-11-10 13:44 | REPVR ---
PROCEDURE INFORMATION: Exam: MR Head Without and With Contrast Exam date and time: 11/10/2020 1:32 PM Age: 60 years old Clinical indication: Condition or disease; Other: Lung CA TECHNIQUE: Imaging protocol: MR of the head without and with intravenous contrast. Contrast material: PROHANCE; Contrast volume: 7 ml; Contrast route: INTRAVENOUS (IV); COMPARISON: CT Head without contrast 08/12/2020 3:25 PM FINDINGS: Brain: There is no extra-axial collection or intra-axial mass. Mild diffuse volume loss is within the range of normal for patient age. There are scattered foci of T2/FLAIR white matter hyperintensity, nonspecific but typically small-vessel ischemia in this age group. There is no diffusion restriction. There is no abnormal enhancement within the brain. Cerebral ventricles: Normal. No ventriculomegaly. Sella: There is expanded, empty sella. Bones/joints: Unremarkable. Paranasal sinuses: Normal as visualized. No acute sinusitis. Mastoid air cells: Normal as visualized. No mastoid effusion. Orbital cavity: Unremarkable. Soft tissues: Unremarkable. IMPRESSION: No intracranial metastatic disease. Electronically signed by: Yojana Chen On 11/10/2020 13:43:48 PM
== END ==
LOC: M RAD 12:27
PROVIDERS: ATTEND General Practice
DX: C34.12 Malignant neoplasm of upper lobe, left bronchus or lung (principal)
CPT/HCPCS: 70553; A9576

== ENCOUNTER → 2020-11-11 | Outpatient (CLI) | payer BC ==
[~2020-11-11] MED LIST changes: -PROHANCE 279.3MG/ML 5ML VIAL As Ordered ONE
--- NOTE | 2020-11-11 14:10 | RADONC ---
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 Radiation was concomitant with janee motherapy for cycles 1 and 2. She is seen now for decision making regarding prophylactic cranial irradiation versus MRI surveillance. Diagnosis/Treatment History Oncologic History As above Relevant data: 11/10/20 MRI head Negative for intracranial metastases 11/03/20 CXR Negative Interval History Chemotherapy last on 11/03/20 week. Was dose reduced and also received [address] Palacio in early November for restaging, discussion of additional treatments. Is eating well gainging weight despite mild residual globus sensation and dysgeusia. Still has ringing in the ears. Still has some pain in the right chest, left chest pain much improved. No residual skin reaction. Energy levels adequate for ADLs. Current Therapy Surveillance Stage SCLC HAMIDA T4N2M0 stage IIIB Social History: 40+ pack year smoker, currently 1 pack per day Does not drink Allergies / Meds Allergies: Coded Allergies: silver (Verified Allergy, Severe, Rash , 09/21/20) Any Tegaderm product TAPE (Verified Allergy, Mild, 09/21/20) Skin peels and rash from Tegaderm levofloxacin (Verified Allergy, Mild, RASH, 09/16/20) Home Meds Active Scripts Ondansetron HCl (Ondansetron HCl) 8 Mg Tablet, 1 TAB PO TID for nausea/vomiting for 10 Days, #30 TAB 2 Refills Prov:MAVERICK PALACIO MD 10/13/20 Oxycodone HCl (Oxycodone HCl) 5 Mg/5 Ml Solution, 10 ML PO Q4H PRN for Esophagitis MDD 60ml for 14 Days, #840 ML Prov:JANEL SAPP MD 10/07/20 Potassium Chloride (Potassium Chloride) 20 Meq Tablet.er, 1 TAB PO DAILY for 30 Days, #30 TAB Prov:MAVERICK PALACIO MD 09/28/20 Meclizine HCl (Meclizine HCl) 12.5 Mg Tablet, 12.5 MG PO TID for dizziness for 30 Days, #90 TAB 2 Refills Prov:MAVERICK PALACIO MD 09/21/20 Magic Mouthwash (First-Mouthwash Blm) 1 Ea Susp, 10 ML SSP QIDP PRN for esophagitis, #240 ML 5 Refills (Diphenhydramine/maalox/lidocaine 1:1:1) May compound if kit unavailable/not covered by insurance Prov:JANEL SAPP MD 09/02/20 Reported Medications Acetaminophen (Tylenol Extra Strength) 500 Mg Tablet, 1000 MG PO Q6H PRN for PAIN, TAB 08/11/20 Diphenhydra/Phenyleph/Acetamin (Allergy-Severe Sinus Amaro Caplet) 1 Each Tablet, 2 TAB PO Q4H PRN for ALLERGY SYMPTOMS/SINUS PAIN, TAB 08/11/20 Famotidine (Famotidine) 20 Mg Tablet, 20 MG PO DAILY, TAB 08/11/20 Levothyroxine Sodium (Synthroid) 112 Mcg Tablet, 112 MCG PO DAILY, TAB 08/11/20 Aspirin (Aspirin) 325 Mg Tablet, 325 MG PO QPM, TAB TAKES AROUND 1800 08/11/20 Review of Systems Review of Systems Constitutional: Reports: Fatigue; Denies: Chills, Fever, Weakness Eyes: Denies: Pain HEENT: Denies: Head Aches Skin: Denies: Rash Pulmonary: Reports: Pleuritic Chest Pain; Denies: Dyspnea, Cough Cardiovascular: Denies: Chest Pain, Palpitations Gastrointestinal: Denies: Nausea, Vomiting Genitourinary: Denies: Dysuria Hematologic: Denies: Bruising Musculoskeletal: Denies: Neck pain, Back pain Neurological: Denies: Weakness, Numbness Psych: Denies: Mood Normal, Anxiety Physical Examination Vital Signs Wt General Exam: Positive: Alert, Cooperative; Negative: No Acute Distress Eye Exam: Positive: PERRLA, EOMI ENT EXAM: Positive: Atraumatic Neck Exam: Positive: Supple Chest Exam: Positive: Clear to auscultation, Normal air movement; Negative: Rales, Rhonchi, Wheezing Heart Exam: Positive: Rate Normal, Regular Rhythm Abdomen Exam: Positive: Soft; Negative: Tenderness Extremity Exam: Negative: Edema Skin Exam: Positive: Nl turgor and temperature Neuro Exam: Positive: Normal Gait, Normal Speech, Strength at 5/5 X4 ext, Cranial Nerves 3-12 NL Psych Exam: Positive: Mental status NL Diagnostic and Laboratory Diagnostic Review Radiologic images, relevant labs and pathology reports were personally reviewed and discussed with Ms. iPckett. Assessment and Plan Impression Assessment Ms. 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 Radiation was concomitant with chemotherapy for cycles 1 and 2. She is seen now for decision making regarding prophylactic cranial irradiation versus MRI surveillance. She is doing well. Almost fully recovered from RT with mild globus sensation as her only remaining sequelae. She has completed chemotherapy. Sees medical oncology in the coming weeks for restaging/further systemic therapy options. We discussed PCI previously and the pros and cons. Historical evidence strongly supports PCI, however there is contemporary evidence stating that OS is not compromised by surveillance. She has always leaned toward MRI surveillance, due to the possible neurocognitive side effects of PCI. I am comfortable with this d ecision given she is without evidence of intracranial disease at this time and is fully functional with a good response in the chest. I recommend another scan again in 3 months and follow up at that time. Performance Status ECOG 0 Plan MRI head with and without contrast in 3 months Follow up in 3 months Wig given to patient per request Ms. Pickett was encouraged to call with questions or concerns in the interim period. JANEL SAPP MD Nov 11, 2020 14:09
== END ==
LOC: M ONCR 12:55
PROVIDERS: ATTEND General Practice
DX: C34.12 Malignant neoplasm of upper lobe, left bronchus or lung (principal); Z92.21 Personal history of antineoplastic chemotherapy

== ENCOUNTER → 2020-12-01 | Outpatient (REF) | payer BC ==
[2020-12-01 13:53] LABS: BASO # 0.1 10^3/uL (0.0-0.2); EOS # 0.1 10^3/uL (0.0-0.5); EOS % 2.2 % (0.0-3.0); HEMATOCRIT 28.1 % (36.0-47.0); HEMOGLOBIN 8.7 g/dl (12.0-15.5); LYMPH # 0.4 10^3/uL (1.5-5.0); MEAN CORPUSCULAR HEMOGLOBIN 33.1 pg (27.0-33.0); MEAN CORPUSCULAR VOLUME 106.8 fl (80.0-96.0); MONO # 0.9 10^3/uL (0.0-0.8); MONO % 18.1 % (2.0-8.0); NEUTROPHILS # 3.5 10^3/uL (1.5-8.5); NEUTROPHILS % 69.9 % (36.0-66.0); PLATELET COUNT, AUTOMATED 258 10^3/uL (150-450); RED BLOOD COUNT 2.63 10^6/uL (4.00-5.40)
[2020-12-01 14:36] LABS: ALBUMIN 4.1 GM/DL (3.2-5.2); ALT/SGPT 16 U/L (12-78); BILIRUBIN,TOTAL 0.4 MG/DL (0.2-1.0); BLOOD UREA NITROGEN 28 MG/DL (7-18); CALCIUM LEVEL 9.4 MG/DL (8.8-10.2); CARBON DIOXIDE LEVEL 26 MEQ/L (21-32); CHLORIDE LEVEL 108 MEQ/L (98-107); CHOLESTEROL LEVEL 263 MG/DL (<200); CHOLESTEROL RISK RATIO 4.781 (<5); CREATININE FOR GFR 0.91 MG/DL (0.55-1.30); FREE T4 1.32 NG/DL (0.76-1.46); GLOMERULAR FILTRATION RATE > 60.0 (>45); GLUCOSE, FASTING 84 MG/DL (70-100); HDL CHOLESTEROL 55 MG/DL (>40); LDL CHOLESTEROL 166 MG/DL (<100); NON-HDL-C 208 MG/DL; POTASSIUM SERUM 4.9 MEQ/L (3.5-5.1); SODIUM LEVEL 141 MEQ/L (136-145); THYROID STIMULATING HORMONE 0.347 uIU/ML (0.358-3.740); TOTAL PROTEIN 6.3 GM/DL (6.4-8.2); TRIGLYCERIDES LEVEL 212 MG/DL (<150)
== END ==
LOC: M SFHCPLAZ 13:33
PROVIDERS: ATTEND Physician Assistant Medical
DX: Z00.00 Encounter for general adult medical examination without abnormal findings (principal); E03.9 Hypothyroidism, unspecified

== ENCOUNTER → 2020-12-30 | Outpatient (REF) | payer BC ==
[~2020-12-30] MED LIST changes: +FERR325T16 PO; +MECL-136 PO; -MECL12.590 PO; +SYNT100T PO
[2020-12-30 17:11] LABS: FREE T4 1.23 NG/DL (0.76-1.46); THYROID STIMULATING HORMONE 0.232 uIU/ML (0.358-3.740)
== END ==
LOC: M LAB REF 15:55
PROVIDERS: ATTEND Physician Assistant Medical
DX: E03.9 Hypothyroidism, unspecified (principal)

== ENCOUNTER → 2021-01-20 | Outpatient (CLI) | payer BC ==
[~2021-01-20] MED LIST changes: +FERR324T21 PO; -FERR325T16 PO; +GASTROGRAFIN SOLUTION 30ML (Q9963) As Ordered ONE; +ISOVUE-370 76% 100ML VIAL As Ordered ONE; +SYNT88TA2 PO
--- NOTE | 2021-01-20 13:39 | REP ---
INDICATION: SCLC. COMPARISON: Abdomen/pelvis CT dated 08/12/2020. TECHNIQUE: Abdomen pelvis CT with IV contrast and with bowel contrast. FINDINGS: On the comparison study there was a left lower lobe lung mass. This mass is not identified on the study today. There is linear stranding in the left lower lobe similar to the prior study. There are a few small nodules or densities in the left lower lobe not present previously, possibly small focal areas of atelectasis. There is a left pleural effusion as an interval change. The small 7 mm hepatic hypodensity is unchanged. The liver is otherwise homogeneous and unremarkable. The gallbladder, pancreas and spleen are unremarkable and unchanged. The adrenals and kidneys are unremarkable and unchanged. The abdominal aorta is unremarkable and unchanged. There is no periaortic adenopathy or mass. The bowel and mesentery are unremarkable except for sigmoid diverticulosis without diverticulitis. This is unchanged. Pelvis: Pelvic bowel loops are otherwise unremarkable. There is no adenopathy or ascites. There are no lytic, blastic or destructive skeletal changes. IMPRESSION: There is no change from the prior study. There is no evidence of adenopathy, ascites or metastatic disease. Sigmoid diverticulosis without diverticulitis is unchanged. The left lung lower lobe mass identified on the prior study is no longer identified on the study today. There is linear stranding, unchanged. There are a few small nodule like densities not present previously, possibly focal areas of atelectasis. <Electronically signed by Gentry Light > 01/20/21 [id number]
--- NOTE | 2021-01-20 14:13 | REP ---
INDICATION: SCLC. COMPARISON: Chest CT dated 08/11/2020. TECHNIQUE: The study is performed with IV contrast. FINDINGS: The large left hilar mass identified previously is no longer present. There is some persisting fullness in the left hilus. The left lower lobe a mass identified previously is no longer present. There is linear stranding in the left lower lobe as previously. There are few new small nodular densities in the left lower lobe of uncertain significance, possibly small areas of atelectasis. There is a new left pleural effusion as an interval change. The atelectasis of the lingula on the comparison study has significantly improved but not entirely resolved. There is no mediastinal lymph node enlargement. There is fullness in the left hilus. There is no right hilar lymph node enlargement. No axillary lymph node enlargement. Thoracic aorta is unremarkable. Cardiac size normal. No pericardial effusion. IMPRESSION: The left hilar mass in the left lower lobe lung mass are no longer present. There is persisting fullness in the left hilus. The atelectasis in the lingula on the prior study has significantly improved. There is a new left pleural effusion. There is linear stranding in the left lower lobe, similar to the prior study. There are few small nodular densities in the left lower lobe, possibly foci of atelectasis. <Electronically signed by Gentry Light > 01/20/21 2165
== END ==
LOC: M RAD 11:03
PROVIDERS: ATTEND Internal Medicine Hematology & Oncology
DX: C34.32 Malignant neoplasm of lower lobe, left bronchus or lung (principal); J90 Pleural effusion, not elsewhere classified; K57.30 Diverticulosis of large intestine without perforation or abscess without bleeding
CPT/HCPCS: 71260; 74177; Q9963; Q9967

== ENCOUNTER → 2021-01-20 | Outpatient (CLI) | payer BC ==
[~2021-01-20] MED LIST changes: -FERR324T21 PO; +FERR325T16 PO; -GASTROGRAFIN SOLUTION 30ML (Q9963) As Ordered ONE; -ISOVUE-370 76% 100ML VIAL As Ordered ONE; +SODIUM CHLORIDE 0.9% INJ 10 ML SYR IV PRN
--- NOTE | 2021-01-20 10:33 | RADONC ---
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 Radiation was concomitant with chemotherapy for cycles 1 and 2. She elected to pursue MRI surveillance in lieu of PCI. She is seen today for new symptomatic complaints of chest pain, cough, and recrudescent dysphagia. Diagnosis/Treatment History Oncologic History She presented with subacute pneumonia-like cough, left anterior chest pain, and HANSEN. She underwent CXR on 08/10/20 at [facility] ED which showed HAMIDA atelectasis which was followed by CT chest showing a large left hilar mass with satellite lesion in the LLL. The hilar mass is compressing the HAMIDA bronchus and causing atelectasis distally in the HAMIDA and lingula. There is suspicious mediastinal adenopathy as well consistent with metastatic disease. She underwent CT abdomen pelvis and CT head which were negative. She underwent bronchoscopy on 08/14/[address] Rosa and biopsy of the left hilar mass returned SCLC. She was started on RT urgently due to impending obstruction of the left lung. She completed thoracic radiation 66 Gy in 33 fractions on 09/29/20 (started urgently in advance of chemotherapy due to impending obstruction, s/p 2 interim replans due to response) and chemotherapy 4 cycles of cisplatin/etoposide completed 11/03/20. Radiation was concomitant with chemotherapy for cycles 1 and 2. She underwent MRI head on 11/10/20 which was negative and she opted for MRI surveillance in lieu of PCI. Interval History She reports recent onset of anterior and posterior chest pain, dry cough and recrudescent dysphagia since 01/13/21, incidentally she received her first COVID vaccine dose that day. She reports the pain extends across the anterior chest, L>R, and in the back at the same level. It has no exacerbating factors. It is not worse with breathing deep. She says tylenol offers sufficient relief. She also has dry cough. In addition she has recurrent globus sensation, no gagging or vomiting, which resembles what was present at the end of her chemoradiation but had since subsided. She has medical oncology follow up with CT scans due next week. She is not on active systemic therapy. Current Therapy Surveillance Stage SCLC HAMIDA T4N2M0 stage IIIB (LS) Social History: 40+ pack year smoker, currently 1 pack per day Does not drin Allergies / Meds Allergies: Coded Allergies: silver (Verified Allergy, Severe, Rash , 09/21/20) Any Tegaderm product TAPE (Verified Allergy, Mild, 09/21/20) Skin peels and rash from Tegaderm levofloxacin (Verified Allergy, Mild, RASH, 09/16/20) Home Meds Reported Medications Levothyroxine Sodium (Synthroid) 88 Mcg Tablet, 88 MCG PO DAILY for 30 Days, #30 TAB 01/20/21 Ferrous Gluconate (Ferrous Gluconate) 324 Mg Tablet, 2 TAB PO Q2D for iron for 30 Days, #30 TAB 12/30/20 Acetaminophen (Tylenol Extra Strength) 500 Mg Tablet, 1000 MG PO Q6H PRN for PAIN, TAB 08/11/20 Diphenhydra/Phenyleph/Acetamin (Allergy-Severe Sinus Amaro Caplet) 1 Each Tablet, 2 TAB PO Q4H PRN for ALLERGY SYMPTOMS/SINUS PAIN, TAB 08/11/20 Famotidine (Famotidine) 20 Mg Tablet, 20 MG PO DAILY, TAB 08/11/20 Discontinued Reported Medications Levothyroxine Sodium (Synthroid) 100 Mcg Tablet, 1 TAB PO DAILY for 30 Days, #30 TAB 12/30/20 Review of Systems Review of Systems Constitutional: Reports: Fatigue; Denies: Fever, Night Sweats, Weight Loss Eyes: Denies: Pain HEENT: Denies: Head Aches Skin: Denies: Rash Pulmonary: Reports: Dyspnea, Cough Cardiovascular: Reports: Chest Pain Gastrointestinal: Denies: Nausea, Vomiting, Abdominal Pain Hematologic: Denies: Bruising, Bleeding Excessively Endocrine: Denies: Cold Intolerance Musculoskeletal: Reports: Back pain, Midthoracic pain; Denies: Neck pain Neurological: Denies: Weakness, Numbness Psych: Reports: Mood Normal Physical Examination Vital Signs Wt 169 (from 165 on 11/11/20) T 98 P 97 RR 18 BP 154/79 O2 97% Pain 2 Fatigue 1 General Exam: Positive: Alert, Cooperative, No Acute Distress Eye Exam: Positive: PERRLA, EOMI Neck Exam: Positive: Supple; Negative: JVD, Lymphadenopathy Chest Exam: Positive: Clear to auscultation, Normal air movement; Negative: Wheezing Heart Exam: Positive: Tachycardic, Regular Rhythm Abdomen Exam: Positive: Normal bowel sounds, Soft; Negative: Tenderness Extremity Exam: Negative: Edema, Tenderness, Swelling Skin Exam: Positive: Nl turgor and temperature Neuro Exam: Positive: Normal Gait, Normal Speech, Cranial Nerves 3-12 NL Psych Exam: Positive: Mental status NL, Anxiety Diagnostic and Laboratory Diagnostic Review Radiologic images, relevant labs and pathology reports were personally reviewed and discussed with Ms. Pickett. Assessment and Plan Impression Assessment Ms. 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 Radiation was concomitant with chemotherapy for cycles 1 and 2. She elected to pursue MRI surveillance in lieu of PCI. She is seen today for new symptomatic complaints of chest pain, cough, and recrudescent dysphagia. We discussed her symptomatology in detail and the differential for this; she may have radiation pneumonitis as she has the classic dry cough and is the proper latency from treatment completion to develop this, she may have a PE, she may have an infectious process, or she may have recurrent cancer, I think all of these possibilities warrant expedited scans. To that end I have moved up her CT chest abdomen and pelvis to be done today and I will follow up the results and direct her appropriately. If she has pneumonitis I will treat her with a prednisone taper. With respect to her recurrent dysphagia, this may be esophageal stricture from RT, or more insidiously related to recurrent disease in the chest exerting mass effect. If the former is suspected (based on imaging) then I can refer her for EGD evaluation and dilation. She agreed to proceed with scans today. She will keep her follow up with medical oncology next week as well as the follow up with me for brain surveillance later this month. Performance Status ECOG [address] chest abdomen and pelvis today Will follow up with her by phone and direct care accordingly She may continue the tylenol for her pain in the meantime as this has been effective Keep medical oncology follow up for next week MRI head later this month as previously scheduled Ms. Pickett was encouraged to call with questions or concerns in the interim period. Billing Statement Total time of [27] minutes was spent preparing for the visit [3], obtaining HPI [5], examining the patient [3], reviewing diagnostic tests [1], discussing management options [3], coordinating care [3], and writing this note [9]. JANEL SAPP MD Jan 20, 2021 10:33
[2021-01-20 11:10] LABS: ALBUMIN 4.1 GM/DL (3.2-5.2); BILIRUBIN,TOTAL 0.3 MG/DL (0.2-1.0); CALCIUM LEVEL 9.5 MG/DL (8.8-10.2); CREATININE FOR GFR 1.05 MG/DL (0.55-1.30); GLOMERULAR FILTRATION RATE 56.7 (>45); POTASSIUM SERUM 4.4 MEQ/L (3.5-5.1); TOTAL PROTEIN 6.9 GM/DL (6.4-8.2)
--- NOTE | 2021-01-20 15:17 | RADENCPD ---
Date/Time of Encounter Date of Encounter: Jan 20, 2021 Time of Encounter: 15:15 Encounter Called scan results to Abril, there is no evidence of recurrent disease or clot. There are interstitial changed in the area of RT which with the symptoms she is experiencing is consistent with pneumonitis. I will give her steroids for this. I also disclosed that there is a small left pleural effusion, but this is not likely the cause of her symptoms and can be observed. She will keep her appointment with Dr. Ruiz next week and see me at the end of the month for MRI surveillance of the brain. Plan: Prednisone 40 mg x 5 days, then 20 mg x 5 days then off JANEL SAPP MD Jan 20, 2021 15:17
== END ==
LOC: M ONCR 09:31
PROVIDERS: ATTEND General Practice
DX: C34.12 Malignant neoplasm of upper lobe, left bronchus or lung (principal)
CPT/HCPCS: 36591; 80053; G0463; J1642

== ENCOUNTER → 2021-02-04 | Outpatient (CLI) | payer BC ==
[~2021-02-04] MED LIST changes: +FERR324T21 PO; -FERR325T16 PO; +PANT20TA6 PO; -SODIUM CHLORIDE 0.9% INJ 10 ML SYR IV PRN
--- NOTE | 2021-02-04 10:26 | REP ---
INDICATION: LUNG CA C34.12. COMPARISON: None. TECHNIQUE: Axial T1, T2, FLAIR, diffusion, and gradient echo images of the brain are obtained. Multiplanar T1 post contrast images are obtained. FINDINGS: Two enhancing lesions are best seen on the coronal postcontrast images. A lesion in the left frontal lobe, immediately subcortical measures approximately 5 mm. A lesion at the base of the left cerebellar hemisphere measures approximately 11 mm x 7.5 mm. No evidence of restricted diffusion to suggest acute infarction. No gradient echo susceptibility to suggest hemorrhage. The ventricles and extra-axial CSF spaces are within normal limits. No mass effect or midline shift. No abnormal fluid collections. Paranasal sinuses and mastoid air cells are clear. IMPRESSION: Two enhancing lesions consistent with metastatic disease, left subcortical frontal lobe, and left inferior cerebellar hemisphere, as described. <Electronically signed by Paul Vasquez > 02/04/21 1022
== END ==
LOC: M ONCR 08:34
PROVIDERS: ATTEND General Practice
DX: Z51.0 Encounter for antineoplastic radiation therapy (principal); C34.12 Malignant neoplasm of upper lobe, left bronchus or lung; R93.0 Abnormal findings on diagnostic imaging of skull and head, not elsewhere classified

== ENCOUNTER 2021-02-10 13:50 | Outpatient (RCR) | payer BC ==
[2021-02-11] MEDS ORDERED: MEMA10TA19 PO (08:13)
[2021-02-11] MEDS ORDERED: MEMA1PAK PO (08:13)
== END 2021-02-12 ==
LOC: M ONCR 13:50
PROVIDERS: ATTEND General Practice
DX: C79.31 Secondary malignant neoplasm of brain (principal)

== ENCOUNTER 2021-02-26 11:30 | Outpatient (RCR) | payer BC ==
[~2021-02-26 11:30] MED LIST changes: +MEMA10TA19 PO; +MEMA1PAK PO
== END 2021-03-15 ==
LOC: M ONCR 11:30
PROVIDERS: ATTEND General Practice
DX: C79.31 Secondary malignant neoplasm of brain (principal)

== ENCOUNTER → 2021-05-27 | Outpatient (CLI) | payer BC ==
[~2021-05-27] MED LIST changes: +MECL-86 PO; +SODIUM CHLORIDE 0.9% INJ 10 ML SYR IV PRN
[2021-05-27 09:08] LABS: EOS % 0.1 % (0.0-3.0); HEMATOCRIT 29.9 % (36.0-47.0); HEMOGLOBIN 9.7 g/dl (12.0-15.5); LYMPH # 0.7 10^3/uL (1.5-5.0); LYMPH % 8.2 % (24.0-44.0); MEAN CORPUSCULAR HEMOGLOBIN 31.6 pg (27.0-33.0); MEAN CORPUSCULAR HGB CONC 32.4 g/dl (32.0-36.5); MEAN CORPUSCULAR VOLUME 97.4 fl (80.0-96.0); MONO # 0.8 10^3/uL (0.0-0.8); MONO % 10.2 % (2.0-8.0); NEUTROPHILS # 6.3 10^3/uL (1.5-8.5); NEUTROPHILS % 79.4 % (36.0-66.0); PLATELET COUNT, AUTOMATED 227 10^3/uL (150-450); RED BLOOD COUNT 3.07 10^6/uL (4.00-5.40); WHITE BLOOD COUNT 7.9 10^3/uL (4.0-10.0)
== END ==
LOC: M ONCM 05-20 09:44
PROVIDERS: ATTEND Internal Medicine Hematology & Oncology
DX: C79.31 Secondary malignant neoplasm of brain (principal); C34.90 Malignant neoplasm of unspecified part of unspecified bronchus or lung

== ENCOUNTER → 2021-05-27 | Outpatient (CLI) | payer BC ==
[~2021-05-27] MED LIST changes: +PROHANCE 279.3MG/ML 15ML VIAL As Ordered ONE; -SODIUM CHLORIDE 0.9% INJ 10 ML SYR IV PRN
--- NOTE | 2021-05-27 13:42 | REPVR ---
PROCEDURE INFORMATION: Exam: MR Head Without and With Contrast Exam date and time: 05/27/2021 12:13 PM Age: 60 years old Clinical indication: Other: Lung CA with brain mets TECHNIQUE: Imaging protocol: MR of the head without and with intravenous contrast. Contrast material: PROHANCE; Contrast volume: 7 ml; Contrast route: INTRAVENOUS (IV); COMPARISON: MRI-Brain W/O FOLL BY WITH 02/04/2021 9:19 AM FINDINGS: Brain: As before there are moderate diffuse involutional changes in the brain without acute hemorrhage or acute territory infarct. Mild T2 and FLAIR hyperintensities posterior to the lateral ventricles and in the michael are stable. No abnormal enhancement. The expected vascular flow voids are present centrally. Cerebral ventricles: Normal. No ventriculomegaly. Pituitary gland and sella: An empty sella is again noted. As a normal variant. Bones/joints: Benign marrow signal on the T1 weighted images. Paranasal sinuses: Paranasal sinuses are well aerated. Mastoid air cells: Tiny amount of fluid mastoids right more so than left. Orbital cavity: Unremarkable. Soft tissues: Unremarkable. IMPRESSION: No new mass or abnormal enhancement. Stable exam. Electronically signed by: Akil Thomas On 05/27/2021 13:41:29 PM
== END ==
LOC: M RAD 11:03
PROVIDERS: ATTEND General Practice
DX: C79.31 Secondary malignant neoplasm of brain (principal)
CPT/HCPCS: 70553; A9576

== ENCOUNTER → 2021-05-28 | Outpatient (CLI) | payer BC ==
--- NOTE | 2021-05-17 08:20 | RADENCPD ---
Date/Time of Encounter Date of Encounter: May 17, 2021 Time of Encounter: 08:18 Encounter Abril called to report she has experienced recrudescent dry cough and SOB. She is COVID vaccinated. No fevers, no nausea or vomiting. She does have dizziness, not vertigo, since WBRT. She benefitted from a prednisone taper previously for RT pneumonitis. Will reinstitute taper at this time. She has follow up with me in the coming weeks. JANEL SAPP MD May 17, 2021 08:20
[~2021-05-28] MED LIST changes: -PROHANCE 279.3MG/ML 15ML VIAL As Ordered ONE
--- NOTE | 2021-05-28 13:13 | RADONC ---
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 Radiation was concomitant with chemotherapy for cycles 1 and 2. She elected to pursue MRI surveillance in lieu of PCI, however MRI brain on 02/04/21 demonstrated a metastatic foci in the left inferior cerebellum and left subcortical frontal lobe. She completed WBRT 30 Gy in 10 fractions 02/15/21-02/26/21. Diagnosis/Treatment History Oncologic History She presented with subacute pneumonia-like cough, left anterior chest pain, and HANSEN. She underwent CXR on 08/10/20 at [facility] ED which showed HAMIDA atelectasis which was followed by CT chest showing a large left hilar mass with satellite lesion in the LLL. The hilar mass is compressing the HAMIDA bronchus and causing atelectasis distally in the HAMIDA and lingula. There is suspicious mediastinal adenopathy as well consistent with metastatic disease. She underwent CT abdomen pelvis and CT head which were negative. She underwent bronchoscopy on 08/14/[address] Rosa and biopsy of the left hilar mass returned SCLC. She was started on RT urgently due to impending obstruction of the left lung. She completed thoracic radiation 66 Gy in 33 fractions on 09/29/20 (started urgently in advance of chemotherapy due to impending obstruction, s/p 2 interim replans due to response) and chemotherapy 4 cycles of cisplatin/etoposide completed 11/03/20. Radiation was concomitant with chemotherapy for cycles 1 and 2. She underwent MRI head on 11/10/20 which was negative and she opted for MRI surveillance in lieu of PCI due to concern for neurocognitive sequelae. Surveillance MRI on 02/04/21 showed 2 metastatic foci in the left frontal and left inferior cerebellar lobes. She underwent WBRT 30 Gy in 10 fractions with namenda 02/15/21- 02/26/21. Recent data: 05/27/21 MRI brain CR, no metastatic lesions or residual foci of enhancement Interval History Abril is on prednisone taper, breathing and chest pain are better. She has some fatigue and has noted minor short term memory changes since completing WBRT. Appetite is excellent and weight is stable. Restaging scans are scheduled for 06/17/21. Current Therapy Surveillance Stage ES SCLC T4N2M1 stage IV Social History: 40+ pack year smoker, currently 1 pack per day Does not drin Allergies / Meds Allergies: Coded Allergies: silver (Verified Allergy, Severe, Rash , 09/21/20) Any Tegaderm product TAPE (Verified Allergy, Mild, 09/21/20) Skin peels and rash from Tegaderm levofloxacin (Verified Allergy, Mild, RASH, 09/16/20) Home Meds Active Scripts Prednisone (Prednisone) 20 Mg Tablet, 1 TAB PO ASDIRECTED for 30 Days, #35 TAB Take 2 tabs daily for 10 days, then take 1 tab daily for 10 days, then take 1/2 tab daily for 10 days, then stop Prov:JANEL SAPP MD 05/17/21 Meclizine HCl (Meclizine HCl) 25 Mg Tablet, 1 TAB PO TIDP PRN for dizziness for 10 Days, #30 TAB 3 Refills Prov:JANEL SAPP MD 04/29/21 Memantine HCl (Memantine HCl) 10 Mg Tablet, 1 TAB PO BID, #60 TAB 5 Refills Start 10 mg twice daily upon completion of titration pack Prov:JANEL SAPP MD 02/11/21 Memantine HCl (Memantine HCl) 1 Each Tab.ds.pk, 1 GABRIELA PO ASDIRECTED, #1 UNIT After completion of titration pack begin standing dose of 10 mg twice daily Prov:JANEL SAPP MD 02/11/21 Reported Medications Levothyroxine Sodium (Synthroid) 88 Mcg Tablet, 88 MCG PO DAILY for 30 Days, #30 TAB 01/20/21 Acetaminophen (Tylenol Extra Strength) 500 Mg Tablet, 1000 MG PO Q6H PRN for PAIN, TAB 08/11/20 Diphenhydra/Phenyleph/Acetamin (Allergy-Severe Sinus Amaro Caplet) 1 Each Tablet, 2 TAB PO Q4H PRN for ALLERGY SYMPTOMS/SINUS PAIN, TAB 08/11/20 Famotidine (Famotidine) 20 Mg Tablet, 20 MG PO DAILY, TAB 08/11/20 Review of Systems Review of Systems Constitutional: Reports: Fatigue; Denies: Weight Loss Eyes: Denies: Pain HEENT: Denies: Head Aches Skin: Denies: Rash Pulmonary: Reports: Dyspnea, Cough; Denies: Pleuritic Chest Pain Cardiovascular: Denies: Chest Pain, Palpitations Gastrointestinal: Denies: Nausea, Abdominal Pain Hematologic: Denies: Bruising, Bleeding Excessively Endocrine: Denies: Cold Intolerance Musculoskeletal: Denies: Neck pain, Back pain Neurological: Denies: Weakness, Numbness Psych: Reports: Mood Normal, Memory Issues Physical Examination Vital Signs Wt 161 lbs T 97 P 85 RR 18 BP 132/71 O2 99% Pain 0 Fatigue 0 General Exam: Alert, Cooperative, No Acute Distress Eye Exam: PERRLA, EOMI ENT EXAM: Atraumatic Neck Exam: Supple Chest Exam: Clear to auscultation, Other (Pleural rub and rales, left mid lung field. Remainder clear) Heart Exam: Rate Normal, Regular Rhythm Abdomen Exam: Soft Extremity Exam: Negative: Edema Skin Exam: Nl turgor and temperature Neuro Exam: Normal Gait, Normal Speech, Cranial Nerves 3-12 NL Psych Exam: Mental status NL Diagnostic and Laboratory Diagnostic Review Radiologic images, relevant labs and pathology reports were personally reviewed and discussed with Ms. Pickett. Assessment and Plan Impression Assessment Ms. 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 Radiation was concomitant with chemotherapy for cycles 1 and 2. She elected to pursue MRI surveillance in lieu of PCI, however MRI brain on 02/04/21 demonstrated a metastatic foci in the left inferior cerebellum and left subcortical frontal lobe. She completed WBRT 30 Gy in 10 fractions 02/15/21- 02/26/21. Her MRI from 05/27/21 shows complete response in the 2 prior metastatic foci and no new lesions. We will continue MRI surveillance next in 3 months time. She is tolerating namenda without side effects will continue for minimum 6 months as per RTOG 0614. She has pending body scans on 06/17/[address] Ruiz. With respect to her pneumonitis it again is improving with prednisone, seems to be a chronic/recurrent problem, hopeful that it will stabilize in time. I encouraged her to continue the taper of prednisone I prescribed. I also discussed the conflicting data on the benefit of trental/vitamin E therapy for pneumonitis. As this regimen has minimal side effects, I would be comfortable trying it with her. She will consider this but does not want additional medications at this time. Performance Status ECOG 1 Plan MRI head in 3 months Continue namenda Continue prednisone taper as planned Consider trental/vitamin E for chronic pneumonitis Ms. Pickett was encouraged to call with questions or concerns in the interim period. Billing Statement Total time of [34] minutes was spent preparing for the visit [3], obtaining HPI [6], examining the patient [4], reviewing diagnostic tests [5], discussing management options [7], coordinating care [2], and writing this note [7]. JANEL SAPP MD May 28, 2021 13:13
== END ==
LOC: M ONCR 10:55
PROVIDERS: ATTEND General Practice
DX: C34.12 Malignant neoplasm of upper lobe, left bronchus or lung (principal); C79.31 Secondary malignant neoplasm of brain; F17.210 Nicotine dependence, cigarettes, uncomplicated; J18.9 Pneumonia, unspecified organism; Z79.890 Hormone replacement therapy; Z79.899 Other long term (current) drug therapy; Z88.1 Allergy status to other antibiotic agents; Z91.09 Other allergy status, other than to drugs and biological substances; Z91.048 Other nonmedicinal substance allergy status; Z92.21 Personal history of antineoplastic chemotherapy; Z92.3 Personal history of irradiation

== ENCOUNTER → 2021-06-17 | Outpatient (CLI) | payer BC ==
[~2021-06-17] MED LIST changes: +GASTROGRAFIN SOLUTION 30ML (Q9963) As Ordered ONE; +ISOVUE-370 76% 100ML VIAL As Ordered ONE
--- NOTE | 2021-06-17 14:55 | REP ---
INDICATION: BONE METS EVAL. COMPARISON: 08/13/2020. TECHNIQUE/RADIOTRACER AND DOSE: Following the intravenous administration of 21.2mCi technetium 99 M MDP, patient's whole-body is imaged in multiple projections. FINDINGS: There is focal increased uptake in the region of the right acromion which is essentially new. There is a focal band of increased uptake in the region of the L5 vertebral body which is new. No other abnormal uptake is seen in the axial or appendicular skeleton. Renal and bladder activity are seen. IMPRESSION: New focal increased uptake in the right acromion and L5 vertebral body. The findings could represent metastatic lesions or occult fractures. <Electronically signed by Gentry Haskins > 06/17/21 2091
--- NOTE | 2021-06-18 09:06 | REP ---
INDICATION: BONE METS EVAL COMPARISON: 01/20/2021 TECHNIQUE: Axial contrast enhanced images from the thoracic inlet to the upper abdomen with coronal and sagittal reformations using 100 ml Isovue 370 intravenous contrast material. Exam is followed by CT of the abdomen and pelvis. This CT examination was performed using the following dose reduction techniques: Automated exposure control, adjustment of mA and/or kv according to the patient's size, and use of iterative reconstruction technique. FINDINGS: Previous small left pleural effusion has resolved. New areas of somewhat linear/patchy ill-defined infiltrates are identified primarily in the medial left upper lobe/apex, left upper lobe/lingula, and left lower lobe. New small scattered nodules are also suggested including medial right middle lobe nodules measuring up to 5 mm (series 204; image 53). There is also significant new adenopathy including right supraclavicular node measuring 3.2 cm maximal diameter and right paratracheal lymph node in the superior mediastinum measuring roughly 3.6 cm maximal diameter as well as few smaller mediastinal lymph nodes. Further evaluation of the mediastinum demonstrates relatively normal thoracic aorta, pulmonary vasculature, and heart/pericardium. Tracheobronchial tree is grossly patent. Thyroid gland is unremarkable. [id number] identified with tip in the SVC. Surrounding osseous structures are grossly normal and no obvious metastatic focus is identified by CT evaluation. IMPRESSION: 1. Significantly increased ill-defined linear/patchy opacities primarily in the left hemithorax as well as few scattered noncalcified nodules most notably within the medial right middle lobe measuring up to 5-6 mm and right supraclavicular and right paratracheal adenopathy. <Electronically signed by Misael Rodríguez > 06/18/21 0951
--- NOTE | 2021-06-18 09:18 | REP ---
INDICATION: BONE METS EVAL. COMPARISON: 01/20/2021 TECHNIQUE: Axial contrast-enhanced images from the lung bases to the pubic symphysis using oral and 100 cc Isovue 370 intravenous contrast material. Delayed images of the abdomen with coronal and sagittal reformations obtained. This CT examination was performed using the following dose reduction techniques: Automated exposure control, adjustment of mA and/or kv according to the patient's size, and the use of iterative reconstruction technique. FINDINGS: Liver demonstrates innumerable hypodensities up to roughly 1.8 cm consistent with metastatic disease. Spleen, pancreas, gallbladder, bilateral adrenal glands and kidneys are normal. The enteric system including stomach, small, and large bowel appears normal. No evidence for obstruction or acute inflammatory process. Normal terminal ileum and appendix are identified in the right lower quadrant. Colonic diverticulosis noted without acute diverticulitis. Pelvis demonstrates normal bladder and age-appropriate uterus/adnexa. No ascites. No free air. No intraperitoneal or retroperitoneal adenopathy. Abdominal aorta and vasculature appear normal. Musculoskeletal structures are intact and without definite osseous abnormality. However, vague subtle sclerotic changes primarily involving the lower lumbar spine and pelvis cannot exclude the possibility of early osseous metastatic disease. IMPRESSION: 1. Innumerable hepatic hypodensities consistent with metastatic disease. 2. No ascites. No obvious adenopathy. No further acute abdominal pathology. 3. Questionable vague sclerotic changes to the lower lumbar spine and pelvis. 4. Chronic findings as above. <Electronically signed by Misael Rodríguez > 06/18/21 0914
== END ==
LOC: M RAD 09:31
PROVIDERS: ATTEND Internal Medicine Hematology & Oncology
DX: C34.90 Malignant neoplasm of unspecified part of unspecified bronchus or lung (principal); K57.90 Diverticulosis of intestine, part unspecified, without perforation or abscess without bleeding; K76.89 Other specified diseases of liver; R59.0 Localized enlarged lymph nodes; Z95.828 Presence of other vascular implants and grafts; M85.88 Other specified disorders of bone density and structure, other site
CPT/HCPCS: 71260; 74177; 78306; A9503; Q9963; Q9967

== ENCOUNTER 2021-06-28 16:11 | Outpatient (RCR) | payer BC ==
[~2021-06-28 16:11] MED LIST changes: -GASTROGRAFIN SOLUTION 30ML (Q9963) As Ordered ONE; +HYCA1CAP PO; +IBUP1TAB7 PO; -ISOVUE-370 76% 100ML VIAL As Ordered ONE
[2021-06-30] MEDS ORDERED: OXYC10TA12 PO (10:44)
[2021-07-15] MEDS ORDERED: PERC10TA26 PO ×2 (13:19→13:23)
[2021-07-19] MEDS ORDERED: ONDA8TAB10 PO (09:48)
== END 2021-07-15 ==
LOC: M ONCR 16:11
PROVIDERS: ATTEND General Practice
DX: C79.51 Secondary malignant neoplasm of bone (principal)

== ENCOUNTER 2021-07-26 09:36 | Inpatient (IN) | payer BC ==
[~2021-07-26] VITALS: Ht 160 cm; Wt 82.5 kg
[2021-07-26] MEDS: FILGRASTIM 480 MCG/0.8 ML SYRINGE **SC ADMINISTRATION ONLY SC SCH (09:00)
[~2021-07-26 09:36] MED LIST changes: +FENT1DIS14 TOP; +OXYC10TA12 PO; +PERC10TA26 PO
[2021-07-26] MEDS ORDERED: NS 1,000 ML IV ONE ×2 (10:05→19:05)
--- NOTE | 2021-07-26 10:15 | REP ---
INDICATION: weakness COMPARISON: 11/03/2020 TECHNIQUE: Portable AP view of the chest FINDINGS: There is volume loss and ill-defined areas of opacity involving the left hemithorax. Mediastinum and cardiac silhouette are incompletely evaluated due to overlying opacities. [id number] identified with tip in the SVC. The right hemithorax is clear. IMPRESSION: Ill-defined areas of opacity involving the left hemithorax. <Electronically signed by Misael Rodríguez > 07/26/21 1011
[2021-07-26] MEDS ORDERED: PIPERACILLIN/TAZOBACTAM SOD 2.25 GM in D5W MINI-BAG PLUS 50 ML IV ONE (10:30)
[2021-07-26 11:53] LABS: ALBUMIN 2.4 GM/DL (3.2-5.2); ALT/SGPT 16 U/L (12-78); BILIRUBIN,DIRECT 0.2 MG/DL (0.0-0.2); BILIRUBIN,TOTAL 0.4 MG/DL (0.2-1.0); BLOOD UREA NITROGEN 15 MG/DL (7-18); CALCIUM LEVEL 7.9 MG/DL (8.8-10.2); CARBON DIOXIDE LEVEL 25 MEQ/L (21-32); CHLORIDE LEVEL 99 MEQ/L (98-107); CK-MB VALUE MASS < 1.0 NG/ML (<3.6); CPK CREATINE PHOSPHOKINASE 92 U/L (26-192); CREATININE FOR GFR 0.92 MG/DL (0.55-1.30); GLOMERULAR FILTRATION RATE > 60.0 (>45); GLUCOSE, FASTING 131 MG/DL (70-100); MB/CK RELATIVE INDEX 1.09 (< OR =4); POTASSIUM SERUM 3.8 MEQ/L (3.5-5.1); SODIUM LEVEL 133 MEQ/L (136-145); TOTAL PROTEIN 5.2 GM/DL (6.4-8.2); TROPONIN I < 0.02 NG/ML (< 0.10)
[2021-07-26] MEDS: ACETAMINOPHEN TAB 650MG DOSE (2X325MG) PO ONE ×2 (12:43→13:09)
[2021-07-26 13:42] LABS: LYMPH # 0.1 10^3/uL (1.5-5.0); LYMPH % 73.3 % (24.0-44.0); MEAN CORPUSCULAR HEMOGLOBIN 31.6 pg (27.0-33.0); MEAN CORPUSCULAR HGB CONC 34.5 g/dl (32.0-36.5); MEAN CORPUSCULAR VOLUME 91.5 fl (80.0-96.0); MONO % 6.7 % (2.0-8.0); RED BLOOD COUNT 2.12 10^6/uL (4.00-5.40)
[2021-07-26] MEDS ORDERED: LIDOCAINE 2% 5ML JELLY UROJET TOP ONE (13:50)
[2021-07-26] MEDS ORDERED: ISOVUE-370 76% 100ML VIAL As Ordered ONE (13:58)
[2021-07-26 14:06] LABS: WHITE BLOOD COUNT 0.2 10^3/uL (4.0-10.0)
[2021-07-26 14:07] LABS: HEMATOCRIT 19.4 % (36.0-47.0); HEMOGLOBIN 6.7 g/dl (12.0-15.5); PLATELET COUNT, AUTOMATED 10 10^3/uL (150-450)
[2021-07-26] MEDS ORDERED: ONDANSETRON 4 MG ORAL DISINTEGRATING TAB PO PRN (15:00)
[2021-07-26] MEDS ORDERED: oxyCODONE 5MG TAB PO PRN (15:00)
[2021-07-26] MEDS ORDERED: NS 1,000 ML IV SCH (15:30)
[2021-07-26] MEDS ORDERED: ONDANSETRON 4MG/2ML VIAL As Ordered ONE (15:36)
[2021-07-26] MEDS ORDERED: ATOR1TAB21 PO (15:48)
[2021-07-26] MEDS ORDERED: HOME MED LIST COMPLETE! XX SCH (15:50)
[2021-07-26 15:58] LABS: INR 1.15; PROTHROMBIN TIME 15.1 SECONDS (12.7-14.5)
[2021-07-26] MEDS: NS 1,000 ML IV SCH ×2 (16:14→23:07)
[2021-07-26] MEDS: ONDANSETRON 4MG/2ML VIAL IV PRN (16:15)
[2021-07-26] MEDS: FAMOTIDINE 20 MG TAB PO SCH (16:25)
--- NOTE | 2021-07-26 16:32 | HPEPDOC ---
[facility] Medical History & Physical Date of Admission Jul 26, 2021 Date of Service: Jul 26, 2021 Attending Physician: Aidee Connell MD History and Physical CHIEF COMPLAINT: weakness HISTORY OF PRESENT ILLNESS: Patient is a 60-year-old female with PMH of Graves' disease with hypothyroid conversion, paroxysmal atrial fibrillation not on AC, history of postobstructive pneumonia, small cell carcinoma with brain , liver and lung metastasis who presented to [facility] emergency room with the chief complaint of increased weakness. It should be noted the patient was an overall poor historian and she was very weak and was not able to give a full history. The patient states she has been having worsening nausea, weakness over the past several weeks. Over the past 24 hours her weakness has worsened she is also had nonbloody diarrhea during that time as well. She also admits to some generalized abdominal discomfort intermittently, 3/10 on pain scale, nonradiating. She denies any chest pain or shortness of breath, recent illnesses. The patient follows with Dr. Rodriguez (med/onc) and recently saw him on 07/21/2021. She was anemic and neutropenic believed to be secondary to the oral topotecan she had taken for 5 days and later stopped. During that visit he had checked labs and found that her blood levels were low and she was told not to restart that medication. The patient complained also that visit of increased generalized pain and her narcotic pain medication was modified. They also discussed that chemotherapy may not be helping her cancer and didn't need to potentially start planning for palliative care or even hospice. In the ER today the patient appears lethargic. H/H 6.7/19.4, platelets 10, the WBC 0.2. Last labs on 07/21 showed significant decrease; however, there has been a steady decline over time. Other abnormal labs included a low sodium 133. The patient was slow to answer questions and was very tired to answer most. Chest x- ray showed questionable pneumonia. CT of the abdomen and pelvis along with CT of the chest was ordered. She was febrile and tachycardic. The patient was admitted for sepsis likely secondary to ? postobstructive pneumonia vs community acquired pneumonia, rule out other sources, pancytopenia requiring transfusion. REVIEW OF SYSTEMS: Negative except for what is mentioned above PAST MEDICAL HISTORY: Graves Disease with hypothyroid conversion s/p ablation Paroxysmal Atrial Fibrillation not on anticoagulation Small cell carcinoma with brain metastasis, progressive liver metastasis and lung metastasis Pancytopenia likely secondary to topotecan Hx of esophagitis PAST SURGICAL HISTORY: D & C port placement SOCIAL HISTORY: Smoker 1 PPD >40 years. Social alcohol use. Patient lives at home with her . Heme/onc- Dr. Rodriguez, PCP. Dr. Harper FAMILY HISTORY: Patients dad at the age of 78 from pancreatic cancer. Her mom is alive. She is an only child ALLERGIES: Please see below. HOME MEDICATIONS: Please see below. PHYSICAL EXAMINATION: VS: Temperature 101.1, heart rate 113 sinus rhythm, respiratory rate 22, 129/64, 96% on room air CONSTITUTIONAL: lethargic, nauseous, O x 3 EYES: PERRLA, EOM intact HENT, MOUTH: Normocephalic, atraumatic, dry mucous membranes, alopecia NECK: SUPPLE, no JVD, no lymphadenopathy, no carotid bruit CV: tachycardia, sinus rhythm, S1S2 normal, no murmurs/rubs/gallops RESPIRATORY: Clear to auscultation bilaterally, no rales/rhonchi/wheezes GI: mild abdominal discomfort diffusely, BS positive in 4 quadrants, soft, nondistended, no rebound or guarding, no organomegaly : Deferred MUSCULOSKELETAL: Normal ROM. No cyanosis, clubbing, swelling, joint deformity, extremity edema INTEGUMENTARY: pale skin, poor skin turgor, intact, no rashes, no lesions, no erythema NEUROLOGIC: Cranial Nerves II-XII are intact, no focal deficits PSYCHIATRIC:depressed mood LABORATORY DATA: Please see below IMAGING: CXR: Ill-defined areas of opacity involving the left hemithorax. CTA chest, CT abd/pelvis pending MICRO: F/u blood cultures, sputum culture, GI panel ASSESSMENT: Patient is a 60-year-old female with PMH above admitted for sepsis secondary to likely postobstructive pneumonia vs community acquired pneumonia, rule out other sources. PLAN: Sepsis 2/2 to Postobstructive PNA vs. Community acquired PNA, r/o other sources -SOB, fever, tachycardia, diarrhea -LA wnl -CXR above, CTA pending -Resp panel neg -IVFs, fever control with tylenol, Zosyn, azithromycin -Sputum, Blood cultures, GI panel, legionella, mycoplasma ordered Diarrhea -r/o C. diff, legionella -IVFs, probiotic -F/u GI panel, c/w treatment above Pancytopenia (anemia, leukopenia, thrombocytopenia) likely 2/2 to tocotecan -No s/s of bleeding, monitor closely -Has seen steady decline over the past several weeks -Transfusing 2 units PRBC, 1 PLTs -Starting neupogen daily. Continue until patient's ANC > 1000 -Spoke with and reviewed chart with Dr. Rodriguez, the patient's heme/onc -Heme/onc consulted and will see 07/27/21 -Daily CBC Tachycardia likely 2/2 to sepsis, anemia -Tx above Metastatic small cell carcinoma to the brain, liver and lung -History of radiation and chemotherapy. Most recently took oral topotecan 5 days 2 weeks ago. -Per last office note on 07/21/2021, it was discussed that chemotherapy may not be helping her cancer and that they may need to start planning for palliative care or even hospice. -Heme/onc to see, consider palliative care consult GERD -PPI IV Chronic pain secondary to malignancy -c/w home pain medications Graves Disease with hypothyroid conversion s/p ablation -F/u TSH -C/w levothyroxine DVT pxx -SCDs, teds DISPOSITION: Admitted under acute inpatient status. Heme/onc consulted. Consider palliative care. Full Code. Vital Signs Vital Signs Date Time Temp Pulse Resp B/P (MAP) Pulse Ox O2 Delivery O2 Flow Rate FiO2 07/26/21 10:05 101.1 113 22 129/64 (85) 96 Laboratory Data Labs 24H Laboratory Tests 2 07/26/21 10:53: Anion Gap 9, Glomerular Filtration Rate > 60.0, Lactic Acid Level 1.2, Calcium Level 7.9L, Total Bilirubin 0.4, Direct Bilirubin 0.2, Aspartate Amino Transf (AST/SGOT) 12, Alanine Aminotransferase (ALT/SGPT) 16, Alkaline Phosphatase 74, Total Creatine Kinase 92, Creatine Kinase MB < 1.0, Creatine Kinase MB Relative Index 1.09, Troponin I < 0.02, Total Protein 5.2L, Albumin 2.4L, Albumin/Globulin Ratio 0.9L, Thyroid Stimulating Hormone (TSH) 1.080 07/26/21 10:56: Ammonia < 10 07/26/21 11:14: Bedside Glucose (Misc Panel) 132H 07/26/21 13:16: Immature Granulocyte % (Auto) 0.0, Neutrophils (%) (Auto) 20.0L, Lymphocytes (%) (Auto) 73.3H, Monocytes (%) (Auto) 6.7, Eosinophils (%) (Auto) 0.0, Basophils (%) (Auto) 0.0, Neutrophils # (Auto) 0.0L, Lymphocytes # (Auto) 0.1L, Monocytes # (Auto) 0.0, Eosinophils # (Auto) 0.0, Basophils # (Auto) 0.0, Nucleated Red Blood Cells % (auto) 0.0, Immature Platelet Fraction 1.6 07/26/21 15:32: Prothrombin Time 15.1H, Prothromb Time International Ratio 1.15, Lipase 22L CBC/BMP Laboratory Tests 07/26/21 10:53 07/26/21 13:16 Microbiology Microbiology 07/26/21 Respiratory Virus Panel (PCR) (JOSEFINA) - Final, Complete 07/26/21 Blood Culture, Received Pending 07/26/21 Blood Culture, Received Pending Home Medications Scheduled Atorvastatin Calcium (Atorvastatin Calcium) 20 Mg Tablet, 20 MG PO DAILY Famotidine (Famotidine) 20 Mg Tablet, 20 MG PO DAILY Fentanyl (Fentanyl) 25 Mcg Patch.td72, 1 PATCH TOP Q3D for pain Levothyroxine Sodium (Synthroid) 88 Mcg Tablet, 88 MCG PO DAILY Memantine HCl (Memantine HCl) 10 Mg Tablet, 1 TAB PO BID Start 10 mg twice daily upon completion of titration pack Ondansetron HCl (Ondansetron HCl) 8 Mg Tablet, 1 TAB PO TID for nausea/vomiting Topotecan HCl (Hycamtin) 1 Mg Capsule, 1 MG PO once daily Take 4 capsules daily for 5 days every 21 days. swallow whole do not break ,do not chew Scheduled PRN Acetaminophen (Tylenol Extra Strength) 500 Mg Tablet, 1,000 MG PO Q6H PRN for PAIN Diphenhydra/Phenyleph/Acetamin (Allergy-Severe Sinus Amaro Caplet) 1 Each Tablet, 2 TAB PO Q4H PRN for ALLERGY SYMPTOMS/SINUS PAIN Ibuprofen (Ibuprofen) 800 Mg Tablet, 1 TAB PO QIDP PRN for pain Meclizine HCl (Meclizine HCl) 25 Mg Tablet, 1 TAB PO TIDP PRN for dizziness Oxycodone HCl (Oxycodone HCl) 10 Mg Tablet, 1 TAB PO QIDP PRN for pain Oxycodone HCl/Acetaminophen (Percocet 10-325 mg Tablet) 1 Each Tablet, 1 TAB PO Q6H PRN for PAIN Allergies Coded Allergies: silver (Verified Allergy, Severe, Rash , 09/21/20) Any Tegaderm product TAPE (Verified Allergy, Mild, 09/21/20) Skin peels and rash from Tegaderm levofloxacin (Verified Allergy, Mild, RASH, 09/16/20) A-FIB/CHADSVASC A-FIB History Current/History of A-Fib/PAF?: Yes Current PO Anticoag Therapy: No Age/Risk Factor Scoring CHADSVASC: CHADSVASC Response (Comments) Value Age Risk Factor Age < 65 years old 0 Gender Risk Factor Female 1 Hx of CHF No 0 Hx of HTN No 0 Hx of Stroke/TIA/or VTE No 0 Hx of Diabetes No 0 Hx of Vascular Disease No 0 Total 1 Treatment Treatment ordered: NONE Other anticoagulant ordered: CI with thrombocytopenia Aidee Connell MD Jul 26, 2021 16:32
[2021-07-26] MEDS ORDERED: ACETAMINOPHEN *IV* 1,000 MG in IV 1 EA IV ONE (18:00)
[2021-07-26] MEDS: LACTOBACILLUS ACIDOPHILUS CAP (BACID) PO SCH (18:02)
--- NOTE | 2021-07-26 19:21 | ECGEPIP ---
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
--- NOTE | 2021-07-26 19:38 | REPVR ---
PROCEDURE INFORMATION: Exam: CT Abdomen And Pelvis With Contrast Exam date and time: 07/26/2021 1:52 PM Age: 60 years old Clinical indication: Other: Diarrhea TECHNIQUE: Imaging protocol: Computed tomography of the abdomen and pelvis with contrast. Radiation optimization: All CT scans at this facility use at least one of these dose optimization techniques: automated exposure control; mA and/or kV adjustment per patient size (includes targeted exams where dose is matched to clinical indication); or iterative reconstruction. Contrast material: ISOVUE 370; Contrast volume: 100 ml; Contrast route: INTRAVENOUS (IV); COMPARISON: CT ABD PELVIS WITH CONTRAST 06/17/2021 11:15 AM FINDINGS: Diaphragm: Hiatal hernia measuring 4 cm is present. Liver: Multiple small hypodense hepatic lesions are present, difficult to characterize. No significant change in the short interim. Gallbladder and bile ducts: Gallbladder is present and shows no evidence of gallstone. Pancreas: Pancreas appears normal. No focal mass or peripancreatic inflammation. Spleen: Spleen appears homogeneous without focal mass. Adrenal glands: Adrenal glands are normal in appearance. Kidneys and ureters: Kidneys appear normal, with no stone, solid mass or hydronephrosis. Stomach and bowel: No evidence of small bowel obstruction. Long segment mural edema and pericolonic stranding suggests inflammatory or infectious colitis involving the cecum, ascending and transverse colon, with lesser involvement of the descending and sigmoid portions. No evidence of acute diverticulitis. Appendix: Normal caliber appendix is identified, with no adjacent inflammation. Intraperitoneal space: No pneumoperitoneum. Vasculature: No aortic aneurysm. Main portal and splenic veins enhance normally. Lymph nodes: No enlarged lymph nodes. Urinary bladder: Urinary bladder appears normal. Reproductive: Female reproductive organs appear unremarkable. Bones/joints: Bony structures are normal except for lumbar spine degenerative disc changes. Soft tissues: Unremarkable. IMPRESSION: 1. Findings are suggestive of inflammatory or infectious colitis, new since the CT from 1 month ago. This predominantly involves the ascending and transverse colon but has some lim colonic involvement 2. Multiple low-density hepatic lesions which may represent cysts but are of indeterminate density and could be solid Electronically signed by: Wale Polk On 07/26/2021 19:37:55 PM
--- NOTE | 2021-07-26 19:42 | REPVR ---
PROCEDURE INFORMATION: Exam: CTA Chest With Contrast Exam date and time: 07/26/2021 2:24 PM Age: 60 years old Clinical indication: Shortness of breath; Additional info: Rule out pulmonary embolism TECHNIQUE: Imaging protocol: Computed tomographic angiography of the chest with contrast. 3D rendering (Not supervised by radiologist): MIP and/or 3D reconstructed images were created by the technologist. Radiation optimization: All CT scans at this facility use at least one of these dose optimization techniques: automated exposure control; mA and/or kV adjustment per patient size (includes targeted exams where dose is matched to clinical indication); or iterative reconstruction. Contrast material: ISOVUE 370; Contrast volume: 100 ml; Contrast route: INTRAVENOUS (IV); COMPARISON: CT ANGIO CHEST 08/11/2020 1:37 AM FINDINGS: Pulmonary arteries: Central pulmonary arteries show no intraluminal defect suggestive of clot. Pulmonary vascular/interstitial pattern does not suggest active pulmonary edema. Aorta: No thoracic aortic aneurysm or dissection. Lungs: Bronchiectasis and scarring in the left upper lobe is present and there is atelectasis or scarring in the left lower lobe. There may be focal airspace filling in the left lower lobe as well. Right lung shows no concerning focal abnormality. Pleural spaces: Small dependent left pleural effusion is present with transudate density. No pneumothorax. Heart: Peripheral pulmonary artery evaluation limited by cardiac and respiratory motion artifact. No overt cardiac enlargement or abnormal volume of pericardial fluid. Lymph nodes: No enlarged mediastinal lymph nodes. Diaphragm: Small hiatal hernia is present. Bones/joints: Bony structures show no acute fracture or destructive process. Soft tissues: Unremarkable. IMPRESSION: 1. No evidence of acute, central pulmonary embolus. Peripheral pulmonary arterial evaluation is limited by cardiac and respiratory motion artifact. 2. Small left pleural effusion, with areas of left lung bronchiectasis and possible infiltrates or scarring at the left lung base. No active pulmonary edema. The parenchymal changes in the left lung are less severe compared with the scan from July 2020 suggesting a favorable response to treatment Electronically signed by: Wale Polk On 07/26/2021 19:41:56 PM
[2021-07-26] MEDS ORDERED: AZITHROMYCIN INJ 500 MG, VIAL MATE ADAPTER 1 EACH in NS 250 ML IV SCH (20:00)
[2021-07-26 22:18] VITALS: BP 105/55
[2021-07-26 22:33] VITALS: BP 109/57
[2021-07-26] MEDS: PIPERACILLIN/TAZOBACTAM SOD 3.375 GM in D5W MINI-BAG PLUS 50 ML IV SCH (23:07)
--- NOTE | 2021-07-26 23:42 | IPNPDOC ---
Text Note Date of Service The patient was seen on 07/26/21. NOTE TIME OF SERVICE 1140PM #GI Bleed Per d/w the patient's RN in the ER the patient has has 3 maroon colored BMs, with a volume of approximately 300mls each. We will upgrade her to ICU bc I anticipate we may need to institute the massive transfusion protocol, add PPI, octreotide and check the DIC profile. She has already received 2L of IVF and is receiving PRBCs. We will also ask the day time team to consult GI or Gen surg LATE ENTRY 255AM Her plt # is 4. We will transfuse 1 unit of plts. LATE ENTRY 307AM Per d/w the patient's RN the patient had a 4th bloody BM and has only received 1 unit of PRBCs. Because her BP is low we will allow her RN to abscess the port to increasing the rate of infusion of blood products, f/u serial PT, APTT, fibrinogen, ionized calcium and potassium (if the PT & APTT exceed 1.5 times the control we will also infuse 2units of FFPs). Plts have already been ordered. VS,Fishbone, I+O VS, Fishbone, I+O Laboratory Tests 07/26/21 10:53 07/26/21 13:16 Vital Signs Date Time Temp Pulse Resp B/P (MAP) Pulse Ox O2 Delivery O2 Flow Rate FiO2 07/26/21 22:33 99.5 109 18 109/57 97 Room Air GERSON ASHBY MD Jul 26, 2021 23:42
[2021-07-27] VITALS (56 sets, daily range): BP systolic 111–129; BP diastolic 55–78; PULSE 115
[2021-07-27] MEDS ORDERED: OCTREOTIDE ACETATE 100MCG/ML VIAL **IV ADMINISTRATION ONLY IV ONE
[2021-07-27] MEDS ORDERED: OCTREOTIDE ACETATE 1,200 MCG in NS 238.8 ML IV SCH (00:30)
[2021-07-27] MEDS: PANTOPRAZOLE 40MG VIAL (C9113 PER 1) IV SCH ×3 (00:37→20:27)
[2021-07-27] MEDS: metroNIDAZOLE 500 MG in IV 1 EA IV SCH ×2 (00:38→06:47)
[2021-07-27 01:32] LABS: INR 1.35; PROTHROMBIN TIME 17.1 SECONDS (12.7-14.5)
[2021-07-27 01:34] LABS: PARTIAL THROMBOPLASTIN TIME 38.9 SECONDS (25.9-37.0)
[2021-07-27 01:41] LABS: D-DIMER QUANT 3232.52 ng/ml (<500)
[2021-07-27] MEDS: PIPERACILLIN/TAZOBACTAM SOD 3.375 GM in D5W MINI-BAG PLUS 50 ML IV SCH ×6 (04:58→23:36)
[2021-07-27] MEDS: NS 1,000 ML IV SCH ×2 (07:00→15:00)
--- NOTE | 2021-07-27 07:17 | CR.PDOC ---
General Date of Consultation: Jul 27, 2021 Consultation REASON FOR CONSULTATION/CHIEF COMPLAINT: . HISTORY OF PRESENT ILLNESS: . ALLERGIES: Please see below. HOME MEDICATIONS: Please see below. PAST MEDICAL HISTORY: 1. [small cell lung cancer metastatic]. 2. [Pancytopenia secondary to chemotherapy Hycamtin]. PAST SURGICAL HISTORY: 1. 2. FAMILY HISTORY: Father: Mother: Siblings: Children: Hereditary Diseases: Unexpected deaths due to medical reasons: SOCIAL HISTORY: Marital status and/or living arrangements: Children: Employment: Tobacco use: ETOH: Illicit drug use: IV drug use: Other relevant social factors: REVIEW OF SYSTEMS: CONSTITUTIONAL: [Very weak tired]. HEENT: [Blood from nose and mouth and rectum]. CARDIOVASCULAR: . RESPIRATORY: [Mild shortness of breath]. GENITOURINARY: . MUSCULOSKELETAL: . GASTROINTESTINAL: [Diffuse abdominal]. SKIN: . NEUROLOGICAL: . PSYCHIATRIC: . ENDOCRINE: . HEMATOLOGIC/LYMPHATIC: [Bleeding from nose mouth and rectum]. ALLERGIC/IMMUNOLOGIC: . PHYSICAL EXAMINATION: VITAL SIGNS: Please see below. GENERAL APPEARANCE: [Debilitated]. HEENT: [Bleeding from nose mouth rectum]. RESPIRATORY: [Fair air exchange]. CARDIOVASCULAR: [Tachycardic]. ABDOMEN: [Diffusely tender]. EXTREMITIES: . NEUROLOGICAL: [Grossly normal]. PSYCHIATRIC: [Anxiety]. LABORATORY DATA: Please see below. ASSESSMENT/PLAN: 1. [Please confirm that Hycamtin that is topotecan is not being given]. 2. [Please continue transfusion of blood to maintain hemoglobin of 8 please transfuse platelets to keep platelet count over 10,000 and ideally over 20 as patient is having active bleeding] 3. Please transfuse FFP 4 units and vitamin K 10 mg. 4. Please send out stool for C. difficile toxin 5. Please note that it may take more than a week for patient to start recovering especially the loss of her gastrointestinal mucosa 6. I reached out to hospital service and will continue to do so 7. Continue antibiotics to cover gram-negative rods and positive cocci and anaerobes from the gut Face time with the patient is 10 minutes and review of laboratory tests and history 45 minutes total 55 minutes Vital Signs/I&O Vital Signs Date Time Temp Pulse Resp B/P (MAP) Pulse Ox O2 Delivery O2 Flow Rate FiO2 07/27/21 06:45 100.5 112 22 111/70 93 Room Air I&O- Last 24 Hours up to 6 AM 07/27/21 06:00 Intake Total 3782 ml Balance 3782 ml Laboratory Data Labs 24H Laboratory Tests 2 07/26/21 10:53: Anion Gap 9, Glomerular Filtration Rate > 60.0, Lactic Acid Level 1.2, Calcium Level 7.9L, Total Bilirubin 0.4, Direct Bilirubin 0.2, Aspartate Amino Transf (AST/SGOT) 12, Alanine Aminotransferase (ALT/SGPT) 16, Alkaline Phosphatase 74, Total Creatine Kinase 92, Creatine Kinase MB < 1.0, Creatine Kinase MB Relative Index 1.09, Troponin I < 0.02, Total Protein 5.2L, Albumin 2.4L, Albumin/Globulin Ratio 0.9L, Thyroid Stimulating Hormone (TSH) 1.080 07/26/21 10:56: Ammonia < 10 07/26/21 11:14: Bedside Glucose (Misc Panel) 132H 07/26/21 13:16: Immature Granulocyte % (Auto) 0.0, Neutrophils (%) (Auto) 20.0L, Lymphocytes (%) (Auto) 73.3H, Monocytes (%) (Auto) 6.7, Eosinophils (%) (Auto) 0.0, Basophils (%) (Auto) 0.0, Neutrophils # (Auto) 0.0L, Lymphocytes # (Auto) 0.1L, Monocytes # (Auto) 0.0, Eosinophils # (Auto) 0.0, Basophils # (Auto) 0.0, Nucleated Red Blood Cells % (auto) 0.0, Immature Platelet Fraction 1.6 07/26/21 15:32: Prothrombin Time 15.1H, Prothromb Time International Ratio 1.15, Lipase 22L, Procalcitonin 3.89 07/27/21 00:50: Prothrombin Time 17.1H, Prothromb Time International Ratio 1.35, Activated Partial Thromboplast Time 38.9H, Fibrinogen 579H, D-Dimer, Quantitative 3232.52H CBC/BMP Laboratory Tests 07/26/21 10:53 07/26/21 13:16 07/27/21 00:50 Microbiology Microbiology 07/26/21 Respiratory Virus Panel (PCR) (JOSEFINA) - Final, Complete 07/26/21 Blood Culture, Received Pending 07/26/21 Blood Culture, Received Pending Allergies Coded Allergies: silver (Verified Allergy, Severe, Rash , 09/21/20) Any Tegaderm product TAPE (Verified Allergy, Mild, 09/21/20) Skin peels and rash from Tegaderm levofloxacin (Verified Allergy, Mild, RASH, 09/16/20) Home Medications Scheduled Atorvastatin Calcium (Atorvastatin Calcium) 20 Mg Tablet, 20 MG PO DAILY, (Reported) Famotidine (Famotidine) 20 Mg Tablet, 20 MG PO DAILY, (Reported) Fentanyl (Fentanyl) 25 Mcg Patch.td72, 1 PATCH TOP Q3D for pain for 30 Days, #10 Levothyroxine Sodium (Synthroid) 88 Mcg Tablet, 88 MCG PO DAILY, (Reported) Memantine HCl (Memantine HCl) 10 Mg Tablet, 1 TAB PO BID, #60 Start 10 mg twice daily upon completion of titration pack Ondansetron HCl (Ondansetron HCl) 8 Mg Tablet, 1 TAB PO TID for nausea/vomiting for 30 Days, #90 Topotecan HCl (Hycamtin) 1 Mg Capsule, 1 MG PO once daily for 5 Days, #20 Take 4 capsules daily for 5 days every 21 days. swallow whole do not break ,do not chew Scheduled PRN Acetaminophen (Tylenol Extra Strength) 500 Mg Tablet, 1,000 MG PO Q6H PRN for PAIN, (Reported) Diphenhydra/Phenyleph/Acetamin (Allergy-Severe Sinus Amaro Caplet) 1 Each Tablet, 2 TAB PO Q4H PRN for ALLERGY SYMPTOMS/SINUS PAIN, (Reported) Ibuprofen (Ibuprofen) 800 Mg Tablet, 1 TAB PO QIDP PRN for pain for 14 Days, #60 Meclizine HCl (Meclizine HCl) 25 Mg Tablet, 1 TAB PO TIDP PRN for dizziness for 10 Days, #30 Oxycodone HCl (Oxycodone HCl) 10 Mg Tablet, 1 TAB PO QIDP PRN for pain for 14 Days, #60 Oxycodone HCl/Acetaminophen (Percocet 10-325 mg Tablet) 1 Each Tablet, 1 TAB PO Q6H PRN for PAIN, #60 EVY MARTIN MD Jul 27, 2021 07:17
[2021-07-27] MEDS: LACTOBACILLUS ACIDOPHILUS CAP (BACID) PO SCH ×2 (08:00→18:00)
[2021-07-27] MEDS: FAMOTIDINE 20 MG TAB PO SCH (09:00)
[2021-07-27] MEDS: fentaNYL 25 MCG/HR PATCH TOP SCH (10:13)
[2021-07-27] MEDS: ONDANSETRON 4MG/2ML VIAL IV PRN (10:13)
[2021-07-27 10:54] LABS: ALBUMIN 1.9 GM/DL (3.2-5.2); ALT/SGPT 19 U/L (12-78); BILIRUBIN,TOTAL 1.3 MG/DL (0.2-1.0); BLOOD UREA NITROGEN 11 MG/DL (7-18); CALCIUM LEVEL 7.3 MG/DL (8.8-10.2); CARBON DIOXIDE LEVEL 21 MEQ/L (21-32); CHLORIDE LEVEL 106 MEQ/L (98-107); GLOMERULAR FILTRATION RATE > 60.0 (>45); GLUCOSE, FASTING 157 MG/DL (70-100); POTASSIUM SERUM 2.9 MEQ/L (3.5-5.1); SODIUM LEVEL 137 MEQ/L (136-145); TOTAL PROTEIN 5.2 GM/DL (6.4-8.2)
[2021-07-27] MEDS ORDERED: PHYTONADIONE 1 MG/0.5 ML SYRINGE (J3430) SQ ONE (11:00)
[2021-07-27] MEDS: FILGRASTIM 480 MCG/0.8 ML SYRINGE **SC ADMINISTRATION ONLY SC SCH ×2 (12:20→12:34)
--- NOTE | 2021-07-27 14:54 | IPNPDOC ---
Text Note Date of Service The patient was seen on 07/27/21. NOTE Subjective: -Reports that her abdominal pain is better than yesterday but continues to feel weak and have diarrhea that is now slowly becoming brown from the maroon color that was previously noted. -Still intermittently febrile Objective: VITALS: see below CONSTITUTIONAL: lethargic, AO x 3 EYES: PERRLA, EOM intact, pale conjunctiva HENT, MOUTH: Normocephalic, atraumatic, dry mucous membranes, alopecia NECK: SUPPLE, no JVD, no lymphadenopathy, no carotid bruit CV: RRR, S1S2 normal, no murmurs/rubs/gallops RESPIRATORY: Clear to auscultation bilaterally, no rales/rhonchi/wheezes GI: Mild abdominal discomfort on palpation, BS positive in 4 quadrants, soft, nondistended, no rebound or guarding, no organomegaly MUSCULOSKELETAL: Normal ROM. No cyanosis, clubbing, swelling, joint deformity, extremity edema INTEGUMENTARY: pale skin, poor skin turgor, intact, no rashes, no lesions, no erythema NEUROLOGIC: Cranial Nerves II-XII are intact, no focal deficits LABORATORY DATA: Reviewed WBC 0.2 Hgb 6.7 platelets 4 na 138 K 3.8 BUN 15 Cr 0.92 INR 1.35 DDimer 3232 IMAGING: CXR: Ill-defined areas of opacity involving the left hemithorax. CTA chest: Pulmonary arteries: Central pulmonary arteries show no intraluminal defect suggestive of clot. Pulmonary vascular/interstitial pattern does not suggest active pulmonary edema. Aorta: No thoracic aortic aneurysm or dissection. Lungs: Bronchiectasis and scarring in the left upper lobe is present and there is atelectasis or scarring in the left lower lobe. There may be focal airspace filling in the left lower lobe as well. Right lung shows no concerning focal abnormality. Pleural spaces: Small dependent left pleural effusion is present with transudate density. No pneumothorax. Heart: Peripheral pulmonary artery evaluation limited by cardiac and respiratory motion artifact. No overt cardiac enlargement or abnormal volume of pericardial fluid. Lymph nodes: No enlarged mediastinal lymph nodes. Diaphragm: Small hiatal hernia is present. Bones/joints: Bony structures show no acute fracture or destructive process. Soft tissues: Unremarkable. IMPRESSION: 1. No evidence of acute, central pulmonary embolus. Peripheral pulmonary arterial evaluation is limited by cardiac and respiratory motion artifact. 2. Small left pleural effusion, with areas of left lung bronchiectasis and possible infiltrates or scarring at the left lung base. No active pulmonary edema. The parenchymal changes in the left lung are less severe compared with the scan from July 2020 suggesting a favorable response to treatment CT abd/pelvis: FINDINGS: Diaphragm: Hiatal hernia measuring 4 cm is present. Liver: Multiple small hypodense hepatic lesions are present, difficult to characterize. No significant change in the short interim. Gallbladder and bile ducts: Gallbladder is present and shows no evidence of gallstone. Pancreas: Pancreas appears normal. No focal mass or peripancreatic inflammation. Spleen: Spleen appears homogeneous without focal mass. Adrenal glands: Adrenal glands are normal in appearance. Kidneys and ureters: Kidneys appear normal, with no stone, solid mass or hydronephrosis. Stomach and bowel: No evidence of small bowel obstruction. Long segment mural edema and pericolonic stranding suggests inflammatory or infectious colitis involving the cecum, ascending and transverse colon, with lesser involvement of the descending and sigmoid portions. No evidence of acute diverticulitis. Appendix: Normal caliber appendix is identified, with no adjacent inflammation. Intraperitoneal space: No pneumoperitoneum. Vasculature: No aortic aneurysm. Main portal and splenic veins enhance normally. Lymph nodes: No enlarged lymph nodes. Urinary bladder: Urinary bladder appears normal. Reproductive: Female reproductive organs appear unremarkable. Bones/joints: Bony structures are normal except for lumbar spine degenerative disc changes. Soft tissues: Unremarkable. IMPRESSION: 1. Findings are suggestive of inflammatory or infectious colitis, new since the CT from 1 month ago. This predominantly involves the ascending and transverse colon but has some lim colonic involvement 2. Multiple low-density hepatic lesions which may represent cysts but are of indeterminate density and could be solid MICRO: F/u blood cultures, sputum culture, GI panel ASSESSMENT: 60-year-old W with small cell lung carcinoma with brain , liver and lung metastasis recently on topotecan who follows with Dr. Rodriguez, who presented to [facility] emergency room with the chief complaint of increased weakness and was admitted with chemo induced profound pancytopenia and colitis with bloody diarrhea with +SIRS criteria c/f sepsis. PLAN: +SIRS w/ fever, tachycardia, diarrhea and leukopenia, noted colitis -LA wnl -CXR and CTA without sami infiltrates or opacities, with small effusion -Resp panel neg -IVFs, fever control with tylenol, Zosyn, azithromycin -Sputum, Blood cultures negative to date -GI panel was negative for C.diff -f/u legionella, mycoplasma Colitis -No evidence of C. diff on GI panel that was negative -f/u legionella -IVFs, probiotic -c/w empirirc zosyn treatment given pancytopenia, ongoing fevers and colitis, though this may very well be inflammatory Pancytopenia (anemia, leukopenia, thrombocytopenia) likely 2/2 to tocotecan -GI bleeding, appears to be improving with stool turning brown now, monitor closely -Transfusing 2 units PRBC, 2 PLTs, 4 FFP, Vit K SQ with goal Hgb >8, platelets >20 -Continue neupogen daily. Continue until patient's ANC > 1500 -Spoke with Dr. 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 Most recently took oral topotecan 5 days 2 weeks ago. -Per last office note on 07/21/2021, it was discussed that chemotherapy may not be helping her cancer and that they may need to start planning for palliative care or even hospice. -Heme/onc to see, consider palliative care or even hospice consult after they have spoken, to see her this AM GERD -PPI IV Chronic pain secondary to malignancy -c/w home pain medications Graves Disease with hypothyroid conversion s/p ablation -C/w levothyroxine DVT pxx -SCDs, teds DISPOSITION: Admitted under acute inpatient status. Heme/onc consulted. Full Code. VS,Fishbone, I+O VS, Fishbone, I+O Laboratory Tests 07/27/21 00:50 07/27/21 09:47 Vital Signs Date Time Temp Pulse Resp B/P (MAP) Pulse Ox O2 Delivery O2 Flow Rate FiO2 07/27/21 13:57 99.7 109 18 114/60 94 Room Air I&O- Last 24 Hours up to 6 AM 07/27/21 05:59 Intake Total 3732 ml Balance 3732 ml HUSSAIN HOANG MD Jul 27, 2021 14:54
[2021-07-27] MEDS: MORPHINE 2 MG/ML 1ML VIAL (J2270) IV PRN (16:58)
[2021-07-27] MEDS: KCL 20MEQ in NS 1000ML 1,000 ML IV SCH (19:25)
[2021-07-27] MEDS: KCL 10MEQ/100ML SWI (KRUN) 10 MEQ in IV 1 EA IV SCH ×5 (19:26→23:35)
[2021-07-27] MEDS: OCTREOTIDE ACETATE 1,200 MCG in NS 238.8 ML IV SCH (21:40)
[2021-07-27 22:24] LABS: HEMATOCRIT 40.7 % (36.0-47.0); HEMOGLOBIN 14.3 g/dl (12.0-15.5); MEAN CORPUSCULAR HEMOGLOBIN 30.2 pg (27.0-33.0); MEAN CORPUSCULAR HGB CONC 35.1 g/dl (32.0-36.5); MEAN CORPUSCULAR VOLUME 85.9 fl (80.0-96.0); RED BLOOD COUNT 4.74 10^6/uL (4.00-5.40)
[2021-07-27 22:29] LABS: PLATELET COUNT, AUTOMATED 52 10^3/uL (150-450); WHITE BLOOD COUNT 0.1 10^3/uL (4.0-10.0)
[2021-07-27 23:25] LABS: HEMATOCRIT 41.8 % (36.0-47.0); HEMOGLOBIN 14.7 g/dl (12.0-15.5); MEAN CORPUSCULAR HEMOGLOBIN 30.1 pg (27.0-33.0); MEAN CORPUSCULAR HGB CONC 35.2 g/dl (32.0-36.5); MEAN CORPUSCULAR VOLUME 85.7 fl (80.0-96.0); RED BLOOD COUNT 4.88 10^6/uL (4.00-5.40)
[2021-07-27 23:26] LABS: PLATELET COUNT, AUTOMATED 50 10^3/uL (150-450); WHITE BLOOD COUNT 0.1 10^3/uL (4.0-10.0)
[2021-07-28] VITALS (11 sets, daily range): BP systolic 119–136; BP diastolic 60–83
[2021-07-28] MEDS: KCL 10MEQ/100ML SWI (KRUN) 10 MEQ in IV 1 EA IV SCH (00:36)
[2021-07-28] MEDS: MORPHINE 2 MG/ML 1ML VIAL (J2270) IV PRN (03:34)
[2021-07-28] MEDS: KCL 20MEQ in NS 1000ML 1,000 ML IV SCH (03:36)
[2021-07-28 03:43] LABS: HEMATOCRIT 43.6 % (36.0-47.0); MEAN CORPUSCULAR HEMOGLOBIN 29.6 pg (27.0-33.0); MEAN CORPUSCULAR HGB CONC 34.4 g/dl (32.0-36.5); RED BLOOD COUNT 5.07 10^6/uL (4.00-5.40)
[2021-07-28 04:00] LABS: PLATELET COUNT, AUTOMATED 47 10^3/uL (150-450); WHITE BLOOD COUNT 0.1 10^3/uL (4.0-10.0)
[2021-07-28 04:10] LABS: ALBUMIN 1.7 GM/DL (3.2-5.2); ALT/SGPT 17 U/L (12-78); BILIRUBIN,TOTAL 1.9 MG/DL (0.2-1.0); BLOOD UREA NITROGEN 14 MG/DL (7-18); CALCIUM LEVEL 6.9 MG/DL (8.8-10.2); CARBON DIOXIDE LEVEL 24 MEQ/L (21-32); CHLORIDE LEVEL 107 MEQ/L (98-107); CREATININE FOR GFR 0.85 MG/DL (0.55-1.30); GLOMERULAR FILTRATION RATE > 60.0 (>45); GLUCOSE, FASTING 133 MG/DL (70-100); POTASSIUM SERUM 3.7 MEQ/L (3.5-5.1); SODIUM LEVEL 140 MEQ/L (136-145); TOTAL PROTEIN 4.7 GM/DL (6.4-8.2)
[2021-07-28] MEDS: PIPERACILLIN/TAZOBACTAM SOD 3.375 GM in D5W MINI-BAG PLUS 50 ML IV SCH ×3 (05:02→18:12)
[2021-07-28] MEDS: LACTOBACILLUS ACIDOPHILUS CAP (BACID) PO SCH ×2 (08:00→18:12)
[2021-07-28] MEDS: FAMOTIDINE 20 MG TAB PO SCH (08:48)
[2021-07-28] MEDS: PANTOPRAZOLE 40MG VIAL (C9113 PER 1) IV SCH ×2 (08:48→21:14)
[2021-07-28] MEDS: FENTANYL REMOVAL DOCUMENTATION MISC XX SCH (09:00)
[2021-07-28 09:11] LABS: HEMATOCRIT 43.8 % (36.0-47.0); HEMOGLOBIN 15.2 g/dl (12.0-15.5); MEAN CORPUSCULAR HGB CONC 34.7 g/dl (32.0-36.5); MEAN CORPUSCULAR VOLUME 86.4 fl (80.0-96.0); RED BLOOD COUNT 5.07 10^6/uL (4.00-5.40)
[2021-07-28 09:20] LABS: PLATELET COUNT, AUTOMATED 40 10^3/uL (150-450); WHITE BLOOD COUNT 0.1 10^3/uL (4.0-10.0)
[2021-07-28] MEDS: FILGRASTIM 480 MCG/0.8 ML SYRINGE **SC ADMINISTRATION ONLY SC SCH (10:17)
[2021-07-28] MEDS: MAG SULF 1GM/100ML (MAG RUN) 1 GM in IV 1 EA IV SCH ×2 (12:24→13:23)
--- NOTE | 2021-07-28 14:42 | IPNPDOC ---
Text Note Date of Service The patient was seen on 07/28/21. NOTE Subjective: -Reports that her abdominal pain is better -continues to feel weak -Diarrhea continues but now consistently more brown Objective: VITALS: see below CONSTITUTIONAL: lethargic, AO x 3 EYES: PERRLA, EOM intact, pale conjunctiva HENT, MOUTH: Normocephalic, atraumatic, dry mucous membranes, alopecia NECK: SUPPLE, no JVD, no lymphadenopathy, no carotid bruit CV: RRR, S1S2 normal, no murmurs/rubs/gallops RESPIRATORY: Clear to auscultation bilaterally, no rales/rhonchi/wheezes GI: Mild abdominal discomfort on palpation, BS positive in 4 quadrants, soft, nondistended, no rebound or guarding, no organomegaly MUSCULOSKELETAL: Normal ROM. No cyanosis, clubbing, swelling, joint deformity, extremity edema INTEGUMENTARY: pale skin, poor skin turgor, intact, no rashes, no lesions, no erythema NEUROLOGIC: Cranial Nerves II-XII are intact, no focal deficits LABORATORY DATA: Reviewed WBC 0.2 Hgb 15 platelets 47 na 140 K 3.7 Cr 0.85 IMAGING: CXR: Ill-defined areas of opacity involving the left hemithorax. CTA chest: Pulmonary arteries: Central pulmonary arteries show no intraluminal defect suggestive of clot. Pulmonary vascular/interstitial pattern does not suggest active pulmonary edema. Aorta: No thoracic aortic aneurysm or dissection. Lungs: Bronchiectasis and scarring in the left upper lobe is present and there is atelectasis or scarring in the left lower lobe. There may be focal airspace filling in the left lower lobe as well. Right lung shows no concerning focal abnormality. Pleural spaces: Small dependent left pleural effusion is present with transudate density. No pneumothorax. Heart: Peripheral pulmonary artery evaluation limited by cardiac and respiratory motion artifact. No overt cardiac enlargement or abnormal volume of pericardial fluid. Lymph nodes: No enlarged mediastinal lymph nodes. Diaphragm: Small hiatal hernia is present. Bones/joints: Bony structures show no acute fracture or destructive process. Soft tissues: Unremarkable. IMPRESSION: 1. No evidence of acute, central pulmonary embolus. Peripheral pulmonary arterial evaluation is limited by cardiac and respiratory motion artifact. 2. Small left pleural effusion, with areas of left lung bronchiectasis and possible infiltrates or scarring at the left lung base. No active pulmonary edema. The parenchymal changes in the left lung are less severe compared with the scan from July 2020 suggesting a favorable response to treatment CT abd/pelvis: FINDINGS: Diaphragm: Hiatal hernia measuring 4 cm is present. Liver: Multiple small hypodense hepatic lesions are present, difficult to characterize. No significant change in the short interim. Gallbladder and bile ducts: Gallbladder is present and shows no evidence of gallstone. Pancreas: Pancreas appears normal. No focal mass or peripancreatic inflammation. Spleen: Spleen appears homogeneous without focal mass. Adrenal glands: Adrenal glands are normal in appearance. Kidneys and ureters: Kidneys appear normal, with no stone, solid mass or hydronephrosis. Stomach and bowel: No evidence of small bowel obstruction. Long segment mural edema and pericolonic stranding suggests inflammatory or infectious colitis involving the cecum, ascending and transverse colon, with lesser involvement of the descending and sigmoid portions. No evidence of acute diverticulitis. Appendix: Normal caliber appendix is identified, with no adjacent inflammation. Intraperitoneal space: No pneumoperitoneum. Vasculature: No aortic aneurysm. Main portal and splenic veins enhance normally. Lymph nodes: No enlarged lymph nodes. Urinary bladder: Urinary bladder appears normal. Reproductive: Female reproductive organs appear unremarkable. Bones/joints: Bony structures are normal except for lumbar spine degenerative disc changes. Soft tissues: Unremarkable. IMPRESSION: 1. Findings are suggestive of inflammatory or infectious colitis, new since the CT from 1 month ago. This predominantly involves the ascending and transverse colon but has some lim colonic involvement 2. Multiple low-density hepatic lesions which may represent cysts but are of indeterminate density and could be solid MICRO: F/u blood cultures, sputum culture, GI panel ASSESSMENT: 60-year-old W with small cell lung carcinoma with brain , liver and lung metastasis recently on topotecan who follows with Dr. Rodriguez, who presented to [facility] emergency room with the chief complaint of increased weakness and was admitted with chemo induced profound pancytopenia and colitis with bloody diar aren with +SIRS criteria c/f sepsis. PLAN: +SIRS w/ fever, tachycardia, diarrhea and leukopenia, noted colitis -LA wnl -CXR and CTA without sami infiltrates or opacities, with small effusion -Resp panel neg -Continue IVF at this time given charted 38 episodes of diarrhea. fever control with tylenol -Sputum, Blood cultures negative to date -GI panel was negative for C.diff, will start on loperamide -f/u legionella, mycoplasma -Not sure why no urine was collected at admission pre-antibiotic therapy in febrile neutropenic patient. Unfortunately this is day 3 of zosyn. Colitis -No evidence of C. diff on GI panel that was negative -f/u legionella -IVFs, probiotic -c/w empiric zosyn treatment given pancytopenia, ongoing fevers and colitis, though this may very well be inflammatory Pancytopenia (anemia, leukopenia, thrombocytopenia) likely 2/2 to tocotecan -GI bleeding, improving with stool turning brown now, monitor closely -s/p 8 units PRBC, 3 leukoreduced irradiated PLTs, 4 FFP, Vit K SQ. Goal Hgb >8, platelets >20 -Continue neupogen daily. Continue until patient's ANC > 1500 -Spoke with Dr. 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 Most recently took oral topotecan 5 days 2 weeks ago. -Per last office note on 07/21/2021, it was discussed that chemotherapy may not be helping her cancer and that they may need to start planning for palliative care or even hospice. -Heme/onc onboard -Spoke with , and conlusion of our [facility] discussion was to switch her to DNR/DNI at this time GERD -PPI IV Chronic pain secondary to malignancy -c/w home pain medications Graves Disease with hypothyroid conversion s/p ablation -C/w levothyroxine DVT pxx -SCDs, teds DISPOSITION: Admitted under acute inpatient status. Heme/onc consulted. Full Code. VS,Fishbone, I+O VS, Fishbone, I+O Laboratory Tests 07/27/21 09:47 07/27/21 22:02 07/27/21 22:55 07/28/21 03:30 Vital Signs Date Time Temp Pulse Resp B/P (MAP) Pulse Ox O2 Delivery O2 Flow Rate FiO2 07/28/21 04:00 98.9 107 24 121/62 (81) 95 Room Air 07/28/21 04:00 2.0 I&O- Last 24 Hours up to 6 AM 07/28/21 06:00 Intake Total 6216 ml Balance 6216 ml HUSSAIN HOANG MD Jul 28, 2021 09:08
[2021-07-28] MEDS: OCTREOTIDE ACETATE 1,200 MCG in NS 238.8 ML IV SCH (19:10)
[2021-07-28] MEDS: ONDANSETRON 4MG/2ML VIAL IV PRN (21:14)
[2021-07-28 21:44] LABS: HEMOGLOBIN 17.1 g/dl (12.0-15.5); MEAN CORPUSCULAR HEMOGLOBIN 29.5 pg (27.0-33.0); MEAN CORPUSCULAR HGB CONC 34.2 g/dl (32.0-36.5); MEAN CORPUSCULAR VOLUME 86.4 fl (80.0-96.0); RED BLOOD COUNT 5.79 10^6/uL (4.00-5.40)
[2021-07-28 21:47] LABS: WHITE BLOOD COUNT 0.1 10^3/uL (4.0-10.0)
[2021-07-28 21:48] LABS: PLATELET COUNT, AUTOMATED 30 10^3/uL (150-450)
[2021-07-28] MEDS ORDERED: hydrOXYzine 25 MG TAB PO ONE (22:15)
[2021-07-29] MEDS: PIPERACILLIN/TAZOBACTAM SOD 3.375 GM in D5W MINI-BAG PLUS 50 ML IV SCH ×3 (00:10→13:35)
[2021-07-29 03:10] LABS: HEMOGLOBIN 16.2 g/dl (12.0-15.5); MEAN CORPUSCULAR HEMOGLOBIN 29.7 pg (27.0-33.0); MEAN CORPUSCULAR HGB CONC 34.5 g/dl (32.0-36.5); MEAN CORPUSCULAR VOLUME 86.1 fl (80.0-96.0); RED BLOOD COUNT 5.46 10^6/uL (4.00-5.40)
[2021-07-29 03:20] LABS: PLATELET COUNT, AUTOMATED 27 10^3/uL (150-450); WHITE BLOOD COUNT 0.1 10^3/uL (4.0-10.0)
[2021-07-29 03:40] LABS: ALBUMIN 1.6 GM/DL (3.2-5.2); ALT/SGPT 12 U/L (12-78); BILIRUBIN,TOTAL 1.9 MG/DL (0.2-1.0); BLOOD UREA NITROGEN 20 MG/DL (7-18); CALCIUM LEVEL 7.9 MG/DL (8.8-10.2); CARBON DIOXIDE LEVEL 22 MEQ/L (21-32); CHLORIDE LEVEL 108 MEQ/L (98-107); CREATININE FOR GFR 0.69 MG/DL (0.55-1.30); GLOMERULAR FILTRATION RATE > 60.0 (>45); GLUCOSE, FASTING 150 MG/DL (70-100); POTASSIUM SERUM 3.3 MEQ/L (3.5-5.1); SODIUM LEVEL 139 MEQ/L (136-145); TOTAL PROTEIN 4.7 GM/DL (6.4-8.2)
[2021-07-29 06:00] VITALS: BP 131/73
[2021-07-29 08:13] LABS: HEMATOCRIT 45.7 % (36.0-47.0); HEMOGLOBIN 15.7 g/dl (12.0-15.5); MEAN CORPUSCULAR HEMOGLOBIN 29.6 pg (27.0-33.0); MEAN CORPUSCULAR HGB CONC 34.4 g/dl (32.0-36.5); MEAN CORPUSCULAR VOLUME 86.2 fl (80.0-96.0)
[2021-07-29 08:15] LABS: PLATELET COUNT, AUTOMATED 20 10^3/uL (150-450); WHITE BLOOD COUNT 0.1 10^3/uL (4.0-10.0)
[2021-07-29] MEDS: FAMOTIDINE 20 MG TAB PO SCH ×2 (09:00→09:22)
[2021-07-29] MEDS: LOPERAMIDE 2 MG CAPLET PO PRN (09:23)
[2021-07-29] MEDS: LACTOBACILLUS ACIDOPHILUS CAP (BACID) PO SCH ×3 (09:23→17:12)
[2021-07-29] MEDS: PANTOPRAZOLE 40MG VIAL (C9113 PER 1) IV SCH ×2 (09:23→21:06)
[2021-07-29] MEDS: KCL 10MEQ/100ML SWI (KRUN) 10 MEQ in IV 1 EA IV SCH ×4 (09:26→16:47)
[2021-07-29 11:02] LABS: LYMPH # 0.1 10^3/uL (1.5-5.0); LYMPH % 83.3 % (24.0-44.0); MONO % 8.3 % (2.0-8.0); NEUTROPHILS % 8.4 % (36.0-66.0)
[2021-07-29] MEDS: FILGRASTIM 480 MCG/0.8 ML SYRINGE **SC ADMINISTRATION ONLY SC SCH (11:37)
[2021-07-29 12:05] LABS: INR 1.1; PROTHROMBIN TIME 14.7 SECONDS (12.7-14.5)
[2021-07-29 12:06] LABS: PARTIAL THROMBOPLASTIN TIME 35.1 SECONDS (25.9-37.0)
[2021-07-29 14:00] VITALS: BP 134/83
--- NOTE | 2021-07-29 14:05 | IPNPDOC ---
Text Note Date of Service The patient was seen on 07/29/21. NOTE Subjective: -continues to feel weak -Diarrhea continues but is improving in frequency, brown without evidence of sami blood of melena Objective: VITALS: see below CONSTITUTIONAL: lethargic, AO x 3 EYES: PERRLA, EOM intact, pale conjunctiva HENT, MOUTH: Normocephalic, atraumatic, dry mucous membranes, alopecia, cushingoid face NECK: SUPPLE, no JVD, no lymphadenopathy, no carotid bruit CV: RRR, S1S2 normal, no murmurs/rubs/gallops RESPIRATORY: Clear to auscultation bilaterally, no rales/rhonchi/wheezes GI: Mild abdominal discomfort on palpation, BS positive in 4 quadrants, soft, nondistended, no rebound or guarding, no organomegaly MUSCULOSKELETAL: Normal ROM. No cyanosis, clubbing, swelling, joint deformity, extremity edema INTEGUMENTARY: pale skin, poor skin turgor, intact, no rashes, no lesions, no erythema NEUROLOGIC: Cranial Nerves II-XII are intact, no focal deficits LABORATORY DATA: Reviewed WBC 0.1 Hgb 15.7 platelets 20 na 139 K 3.3 Cr 0.69 IMAGING: CXR: Ill-defined areas of opacity involving the left hemithorax. CTA chest: Pulmonary arteries: Central pulmonary arteries show no intraluminal defect suggestive of clot. Pulmonary vascular/interstitial pattern does not suggest active pulmonary edema. Aorta: No thoracic aortic aneurysm or dissection. Lungs: Bronchiectasis and scarring in the left upper lobe is present and there is atelectasis or scarring in the left lower lobe. There may be focal airspace filling in the left lower lobe as well. Right lung shows no concerning focal abnormality. Pleural spaces: Small dependent left pleural effusion is present with transudate density. No pneumothorax. Heart: Peripheral pulmonary artery evaluation limited by cardiac and respiratory motion artifact. No overt cardiac enlargement or abnormal volume of pericardial fluid. Lymph nodes: No enlarged mediastinal lymph nodes. Diaphragm: Small hiatal hernia is present. Bones/joints: Bony structures show no acute fracture or destructive process. Soft tissues: Unremarkable. IMPRESSION: 1. No evidence of acute, central pulmonary embolus. Peripheral pulmonary arterial evaluation is limited by cardiac and respiratory motion artifact. 2. Small left pleural effusion, with areas of left lung bronchiectasis and possible infiltrates or scarring at the left lung base. No active pulmonary edema. The parenchymal changes in the left lung are less severe compared with the scan from July 2020 suggesting a favorable response to treatment CT abd/pelvis: FINDINGS: Diaphragm: Hiatal hernia measuring 4 cm is present. Liver: Multiple small hypodense hepatic lesions are present, difficult to characterize. No significant change in the short interim. Gallbladder and bile ducts: Gallbladder is present and shows no evidence of gallstone. Pancreas: Pancreas appears normal. No focal mass or peripancreatic inflammation. Spleen: Spleen appears homogeneous without focal mass. Adrenal glands: Adrenal glands are normal in appearance. Kidneys and ureters: Kidneys appear normal, with no stone, solid mass or hydronephrosis. Stomach and bowel: No evidence of small bowel obstruction. Long segment mural edema and pericolonic stranding suggests inflammatory or infectious colitis involving the cecum, ascending and transverse colon, with lesser involvement of the descending and sigmoid portions. No evidence of acute diverticulitis. Appendix: Normal caliber appendix is identified, with no adjacent inflammation. Intraperitoneal space: No pneumoperitoneum. Vasculature: No aortic aneurysm. Main portal and splenic veins enhance normally. Lymph nodes: No enlarged lymph nodes. Urinary bladder: Urinary bladder appears normal. Reproductive: Female reproductive organs appear unremarkable. Bones/joints: Bony structures are normal except for lumbar spine degenerative disc changes. Soft tissues: Unremarkable. IMPRESSION: 1. Findings are suggestive of inflammatory or infectious colitis, new since the CT from 1 month ago. This predominantly involves the ascending and transverse colon but has some lim colonic involvement 2. Multiple low-density hepatic lesions which may represent cysts but are of indeterminate density and could be solid MICRO: F/u blood cultures, sputum culture, GI panel ASSESSMENT: 60-year-old W with small cell lung carcinoma with brain , liver and lung metastasis recently on topotecan who follows with Dr. Rodriguez, who presented to [facility] emergency room with the chief complaint of increased weakness and was admitted with chemo induced profound pancytopenia and colitis with bloody diarrhea with +SIRS criteria c/f sepsis. PLAN: +SIRS w/ fever, tachycardia, diarrhea and leukopenia, noted colitis -LA wnl -CXR and CTA without sami infiltrates or opacities, with small effusion -Resp panel neg -Continue IVF at this time given charted 17 episodes of diarrhea. -tylenol PRN -Sputum, Blood cultures negative to date -GI panel was negative for C.diff, on PRN loperamide -f/u legionella, mycoplasma -Not sure why no urine was collected at admission pre-antibiotic therapy in febrile neutropenic patient. Unfortunately this is day 4 of zosyn. Colitis -No evidence of C. diff on GI panel that was negative -f/u legionella -IVFs, probiotic -c/w empiric zosyn treatment given pancytopenia, ongoing fevers and colitis, though this may very well be inflammatory Pancytopenia (anemia, leukopenia, thrombocytopenia) likely 2/2 to tocotecan -GI bleeding, improving with stool turning brown now, monitor closely -s/p 8 units PRBC, 3 leukoreduced irradiated PLTs, 4 FFP, Vit K SQ. Goal Hgb >8, platelets >20 -Continue neupogen daily. Continue until patient's ANC > 1500 -Spoke with Dr. 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 Most recently took oral topotecan 5 days 2 weeks ago. -Per last office note on 07/21/2021, it was discussed that chemotherapy may not be helping her cancer and that they may need to start planning for palliative care or even hospice. -Heme/onc onboard -Spoke with , and conlusion of our GOC discussion was to switch her to DNR/DNI, JASON marks signed and in chart GERD -PPI IV Chronic pain secondary to malignancy -c/w home pain medications Graves Disease with hypothyroid conversion s/p ablation -C/w levothyroxine DVT pxx -SCDs, teds DISPOSITION: Admitted under acute inpatient status. Heme/onc consulted. Full Code. VS,Fishbone, I+O VS, Fishbone, I+O Laboratory Tests 07/28/21 21:03 07/29/21 02:49 07/29/21 07:24 Vital Signs Date Time Temp Pulse Resp B/P (MAP) Pulse Ox O2 Delivery O2 Flow Rate FiO2 07/29/21 06:00 97.8 111 18 131/73 (92) 91 Room Air 07/28/21 12:00 1.0 I&O- Last 24 Hours up to 6 AM0 10/14/21 06:00 Intake Total 1180 ml Output Total 0 ml Balance 1180 ml HUSSAIN HOANG MD Jul 29, 2021 09:18
[2021-07-29 15:27] LABS: HEMATOCRIT 44.6 % (36.0-47.0); HEMOGLOBIN 15.7 g/dl (12.0-15.5); MEAN CORPUSCULAR HGB CONC 35.2 g/dl (32.0-36.5); MEAN CORPUSCULAR VOLUME 85.1 fl (80.0-96.0); RED BLOOD COUNT 5.24 10^6/uL (4.00-5.40)
[2021-07-29 15:28] LABS: PLATELET COUNT, AUTOMATED 16 10^3/uL (150-450); WHITE BLOOD COUNT 0.1 10^3/uL (4.0-10.0)
[2021-07-29] MEDS: OCTREOTIDE ACETATE 1,200 MCG in NS 238.8 ML IV SCH (17:11)
[2021-07-29] MEDS: CIPROFLOXACIN 500MG TABLET PO SCH (17:12)
[2021-07-29] MEDS ORDERED: hydrOXYzine 25 MG TAB PO PRN (20:15)
[2021-07-29 20:51] LABS: HEMATOCRIT 45.8 % (36.0-47.0); HEMOGLOBIN 15.9 g/dl (12.0-15.5); MEAN CORPUSCULAR HEMOGLOBIN 29.9 pg (27.0-33.0); MEAN CORPUSCULAR HGB CONC 34.7 g/dl (32.0-36.5); MEAN CORPUSCULAR VOLUME 86.3 fl (80.0-96.0); RED BLOOD COUNT 5.31 10^6/uL (4.00-5.40)
[2021-07-29 20:52] LABS: PLATELET COUNT, AUTOMATED 17 10^3/uL (150-450); WHITE BLOOD COUNT 0.1 10^3/uL (4.0-10.0)
[2021-07-29] MEDS: ONDANSETRON 4MG/2ML VIAL IV PRN (21:06)
[2021-07-29 22:18] VITALS: BP 138/84
[2021-07-30] VITALS (24 sets, daily range): BP systolic 105–145; BP diastolic 66–91
[2021-07-30 03:59] LABS: HEMATOCRIT 45.4 % (36.0-47.0); HEMOGLOBIN 15.8 g/dl (12.0-15.5); MEAN CORPUSCULAR HEMOGLOBIN 29.8 pg (27.0-33.0); MEAN CORPUSCULAR HGB CONC 34.8 g/dl (32.0-36.5); MEAN CORPUSCULAR VOLUME 85.7 fl (80.0-96.0)
[2021-07-30 04:03] LABS: WHITE BLOOD COUNT 0.1 10^3/uL (4.0-10.0)
[2021-07-30 04:04] LABS: PLATELET COUNT, AUTOMATED 7 10^3/uL (150-450)
[2021-07-30 04:21] LABS: ALBUMIN 1.4 GM/DL (3.2-5.2); ALT/SGPT 9 U/L (12-78); BILIRUBIN,TOTAL 1.8 MG/DL (0.2-1.0); BLOOD UREA NITROGEN 26 MG/DL (7-18); CALCIUM LEVEL 7.6 MG/DL (8.8-10.2); CARBON DIOXIDE LEVEL 20 MEQ/L (21-32); CHLORIDE LEVEL 110 MEQ/L (98-107); CREATININE FOR GFR 0.79 MG/DL (0.55-1.30); GLOMERULAR FILTRATION RATE > 60.0 (>45); GLUCOSE, FASTING 131 MG/DL (70-100); POTASSIUM SERUM 3.3 MEQ/L (3.5-5.1); SODIUM LEVEL 138 MEQ/L (136-145); TOTAL PROTEIN 4.3 GM/DL (6.4-8.2)
[2021-07-30] MEDS: CIPROFLOXACIN 500MG TABLET PO SCH ×2 (06:51→17:59)
[2021-07-30] MEDS ORDERED: POTASSIUM CHLORIDE 10MEQ SR TABLET PO ONE (08:30)
[2021-07-30] MEDS: FAMOTIDINE 20 MG TAB PO SCH (09:00)
[2021-07-30 09:06] LABS: HEMATOCRIT 45.5 % (36.0-47.0); HEMOGLOBIN 15.7 g/dl (12.0-15.5); MEAN CORPUSCULAR HEMOGLOBIN 29.7 pg (27.0-33.0); MEAN CORPUSCULAR HGB CONC 34.5 g/dl (32.0-36.5); RED BLOOD COUNT 5.29 10^6/uL (4.00-5.40)
[2021-07-30] MEDS: LACTOBACILLUS ACIDOPHILUS CAP (BACID) PO SCH ×3 (09:11→18:00)
[2021-07-30 09:12] LABS: PLATELET COUNT, AUTOMATED 6 10^3/uL (150-450); WHITE BLOOD COUNT 0.1 10^3/uL (4.0-10.0)
[2021-07-30] MEDS: fentaNYL 25 MCG/HR PATCH TOP SCH (09:13)
[2021-07-30] MEDS: PANTOPRAZOLE 40MG VIAL (C9113 PER 1) IV SCH ×2 (09:13→20:56)
[2021-07-30] MEDS: METOCLOPRAMIDE INJ 10MG/2ML VIAL (J2765 PER 1) IV PRN ×2 (09:13→17:59)
[2021-07-30] MEDS: FENTANYL REMOVAL DOCUMENTATION MISC XX SCH (09:24)
[2021-07-30] MEDS: FILGRASTIM 480 MCG/0.8 ML SYRINGE **SC ADMINISTRATION ONLY SC SCH ×2 (11:50→22:39)
[2021-07-30] MEDS ORDERED: METOPROLOL 5 MG/5 ML VIAL IV STA ×2 (12:28→13:39)
[2021-07-30] MEDS ORDERED: METOPROLOL TART 25 MG TABLET PO SCH ×3 (13:00→18:00)
[2021-07-30] MEDS ORDERED: METOPROLOL TART 12.5 MG PER 1/2 TAB PO SCH (13:00)
--- NOTE | 2021-07-30 13:10 | IPNPDOC ---
Text Note Date of Service The patient was seen on 07/30/21. NOTE Subjective: -continues to feel weak -Diarrhea has resolved Objective: VITALS: see below CONSTITUTIONAL: Continues to appear ill and weak but pallor has improved, AO x 3 EYES: PERRLA, EOM intact, pale conjunctiva HENT, MOUTH: Normocephalic, atraumatic, dry mucous membranes, alopecia, cushingoid face NECK: SUPPLE, no JVD, no lymphadenopathy, no carotid bruit CV: RRR, S1S2 normal, no murmurs/rubs/gallops RESPIRATORY: Clear to auscultation bilaterally, no rales/rhonchi/wheezes GI: Mild abdominal discomfort on palpation, BS positive in 4 quadrants, soft, nondistended, no rebound or guarding, no organomegaly MUSCULOSKELETAL: Normal ROM. No cyanosis, clubbing, swelling, joint deformity, extremity edema INTEGUMENTARY: pale skin, poor skin turgor, intact, no rashes, no lesions, no erythema NEUROLOGIC: Cranial Nerves II-XII are intact, no focal deficits LABORATORY DATA: Reviewed WBC 0.1 Hgb 15.8 platelets 7 na 138 K 3.3 Cr 0.79 IMAGING: CXR: Ill-defined areas of opacity involving the left hemithorax. CTA chest: Pulmonary arteries: Central pulmonary arteries show no intraluminal defect suggestive of clot. Pulmonary vascular/interstitial pattern does not suggest active pulmonary edema. Aorta: No thoracic aortic aneurysm or dissection. Lungs: Bronchiectasis and scarring in the left upper lobe is present and there is atelectasis or scarring in the left lower lobe. There may be focal airspace filling in the left lower lobe as well. Right lung shows no concerning focal abnormality. Pleural spaces: Small dependent left pleural effusion is present with transudate density. No pneumothorax. Heart: Peripheral pulmonary artery evaluation limited by cardiac and respiratory motion artifact. No overt cardiac enlargement or abnormal volume of pericardial fluid. Lymph nodes: No enlarged mediastinal lymph nodes. Diaphragm: Small hiatal hernia is present. Bones/joints: Bony structures show no acute fracture or destructive process. Soft tissues: Unremarkable. IMPRESSION: 1. No evidence of acute, central pulmonary embolus. Peripheral pulmonary arterial evaluation is limited by cardiac and respiratory motion artifact. 2. Small left pleural effusion, with areas of left lung bronchiectasis and possible infiltrates or scarring at the left lung base. No active pulmonary edema. The parenchymal changes in the left lung are less severe compared with the scan from July 2020 suggesting a favorable response to treatment CT abd/pelvis: FINDINGS: Diaphragm: Hiatal hernia measuring 4 cm is present. Liver: Multiple small hypodense hepatic lesions are present, difficult to characterize. No significant change in the short interim. Gallbladder and bile ducts: Gallbladder is present and shows no evidence of gallstone. Pancreas: Pancreas appears normal. No focal mass or peripancreatic inflammation. Spleen: Spleen appears homogeneous without focal mass. Adrenal glands: Adrenal glands are normal in appearance. Kidneys and ureters: Kidneys appear normal, with no stone, solid mass or hydronephrosis. Stomach and bowel: No evidence of small bowel obstruction. Long segment mural edema and pericolonic stranding suggests inflammatory or infectious colitis involving the cecum, ascending and transverse colon, with lesser involvement of the descending and sigmoid portions. No evidence of acute diverticulitis. Appendix: Normal caliber appendix is identified, with no adjacent inflammation. Intraperitoneal space: No pneumoperitoneum. Vasculature: No aortic aneurysm. Main portal and splenic veins enhance normally. Lymph nodes: No enlarged lymph nodes. Urinary bladder: Urinary bladder appears normal. Reproductive: Female reproductive organs appear unremarkable. Bones/joints: Bony structures are normal except for lumbar spine degenerative disc changes. Soft tissues: Unremarkable. IMPRESSION: 1. Findings are suggestive of inflammatory or infectious colitis, new since the CT from 1 month ago. This predominantly involves the ascending and transverse colon but has some lim colonic involvement 2. Multiple low-density hepatic lesions which may represent cysts but are of indeterminate density and could be solid MICRO: F/u blood cultures, sputum culture, GI panel ASSESSMENT: 60-year-old W with small cell lung carcinoma with brain , liver and lung metastasis recently on topotecan who follows with Dr. Rodriguez, who presented to [facility] emergency room with the chief complaint of increased weakness and was admitted with chemo induced profound pancytopenia and colitis with bloody diarrhea with +SIRS criteria c/f sepsis. PLAN: +SIRS w/ fever, tachycardia, diarrhea and leukopenia, noted colitis -LA wnl -CXR and CTA without sami infiltrates or opacities, with small effusion -Resp panel neg -s/p IVF -tylenol PRN -Sputum, Blood cultures negative to date -GI panel was negative for C.diff, on PRN loperamide -f/u legionella, mycoplasma -Not sure why no urine was collected at admission pre-antibiotic therapy in febrile neutropenic patient. Unfortunately this is day 5 of empiric antibiotics, switched from zosyn to PO cipro yesterday Colitis -No evidence of C. diff on GI panel that was negative -f/u legionella -IVFs, probiotic -c/w empiric antibiotics now on PO cipro, dc'd IV zosyn, given pancytopenia, recent fevers and colitis, though this may very well be inflammatory Pancytopenia (anemia, leukopenia, thrombocytopenia) 2/2 to tocotecan -GI bleeding, improving with stool now brown, monitor closely -s/p 8 units PRBC, 3 leukoreduced irradiated PLTs (ordered for 2 more this AM), 4 FFP, Vit K SQ. Goal Hgb >8, platelets >20 -Continue neupogen and increase dosing to BID per onc. Continue until patient's ANC > 1500 -Spoke with Dr. Rodriguez, the patient's heme/onc -Daily CBC -Per discussion with patient and , now DNR/DNI, updated, MOLST signed and in chart. 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 Most recently took oral topotecan 5 days 2 weeks ago. -Per last office note on 07/21/2021, it was discussed that chemotherapy may not be helping her cancer and that they may need to start planning for palliative care or even hospice. -Heme/onc onboard -Spoke with , and conclusion of our [facility] discussion was to switch her to DNR/DNI, updated, MOLST signed and in chart GERD -PPI IV Chronic pain secondary to malignancy -c/w home pain medications Graves Disease with hypothyroid conversion s/p ablation -C/w levothyroxine DVT pxx -SCDs, teds DISPOSITION: Admitted under acute inpatient status. Heme/onc consulted. Full Code. VS,Fishbone, I+O VS, Fishbone, I+O Laboratory Tests 07/29/21 14:56 07/30/21 03:36 Vital Signs Date Time Temp Pulse Resp B/P (MAP) Pulse Ox O2 Delivery O2 Flow Rate FiO2 07/30/21 05:30 97.5 113 21 130/82 (98) 93 Room Air 07/28/21 12:00 1.0 I&O- Last 24 Hours up to 6 AM 07/30/21 05:59 Intake Total 1850 ml Output Total 0 ml Balance 1850 ml HUSSAIN HOANG MD Jul 30, 2021 08:31
--- NOTE | 2021-07-30 13:23 | IPNPDOC ---
Text Note Date of Service The patient was seen on 07/30/21. NOTE Patient was noted to have significant tachycardia on nursing assessment and we placed her on telemetry that showed Afib with RVR and it was confirmed by EKG. Thankfully BP was normal with SBP 120s and she was asymptomatic, actually trying to eat her lunch which is the first I have actually seen her up and taking PO. Dr. Rodriguez also was at bedside. HR went up to max 180s and I ordered metop 5mg IV x 1 with moderate response, for which I have now ordered 12.5mg PO Q6H and we are transferring her to the PCU with telemetry. VS,Fishbone, I+O VS, Fishbone, I+O Laboratory Tests 07/29/21 14:56 07/30/21 03:36 07/30/21 08:46 Vital Signs Date Time Temp Pulse Resp B/P (MAP) Pulse Ox O2 Delivery O2 Flow Rate FiO2 07/30/21 12:55 141 105/66 (79) 07/30/21 11:50 16 07/30/21 11:30 98.5 93 Room Air 07/28/21 12:00 1.0 I&O- Last 24 Hours up to 6 AM 07/30/21 05:59 Intake Total 1850 ml Output Total 0 ml Balance 1850 ml HUSSAIN HOANG MD Jul 30, 2021 13:23
[2021-07-30] MEDS ORDERED: DIGOXIN INJ 0.5 MG/2 ML AMP (J1160) IV STA (15:26)
[2021-07-30 15:41] LABS: HEMATOCRIT 46.4 % (36.0-47.0); MEAN CORPUSCULAR HEMOGLOBIN 29.7 pg (27.0-33.0); MEAN CORPUSCULAR HGB CONC 34.5 g/dl (32.0-36.5); MEAN CORPUSCULAR VOLUME 86.1 fl (80.0-96.0); RED BLOOD COUNT 5.39 10^6/uL (4.00-5.40)
[2021-07-30 15:50] LABS: WHITE BLOOD COUNT 0.1 10^3/uL (4.0-10.0)
[2021-07-30 15:51] LABS: PLATELET COUNT, AUTOMATED 15 10^3/uL (150-450)
[2021-07-30] MEDS: KCL 10MEQ/100ML SWI (KRUN) 10 MEQ in IV 1 EA IV SCH ×4 (16:00→18:41)
--- NOTE | 2021-07-30 16:28 | IPNPDOC ---
Date Seen The patient was seen on 07/30/21. Progress Note SUBJECTIVE: Patient is a [60]-year-old lady with pancytopenia after treatment with topotecan OBJECTIVE PHYSICAL EXAMINATION: VITAL SIGNS: Please see below. GENERAL: [Patient becoming more alert] HEENT: CARDIOVASCULAR: [A. fib now]. RESPIRATORY: . ABDOMINAL: [Soft minimally tender] EXTREMITIES: NEUROLOGICAL: [Nonfocal] PSYCHOLOGICAL: [Annoyed but otherwise intact] LABORATORY DATA, IMAGING STUDIES, MICROBIOLOGY: Please see below. Echocardiogram: . DVT prophylaxis ordered?: ASSESSMENT AND PLAN: Patient is a [60]-year-old lady with pancytopenia after treatment with topotecan PROBLEMS: 1. [The patient diarrhea has resolved and overall she is improving. She is keeping hemoglobin level intact.]: . 2. [Patient requires platelets transfusion however less frequently.]: . 3. [Patient's neutrophil count remains 0. The Neupogen has been increased to 4 8 0 mcg twice a day.]: . 4. I anticipate patient will need at least another week prior to achieving self-sustaining reasonable absolute neutrophil count, and platelet count,. 5. Continue the current treatment as per the hospitalist service. 6. We shall continue to follow periodically in peace please feel free to call us as needed DISPOSITION: [I hope that patient will to recover sufficiently so she may be able to go home with under the care of her ]. VS, I&O, 24H, Fishbone Vital Signs/I&O Vital Signs Date Time Temp Pulse Resp B/P (MAP) Pulse Ox O2 Delivery O2 Flow Rate FiO2 07/30/21 16:16 144 144/91 (108) 07/30/21 14:39 97.3 07/30/21 13:58 18 95 Room Air 07/28/21 12:00 1.0 I&O- Last 24 Hours up to 6 AM 07/30/21 06:00 Intake Total 1850 ml Balance 1850 ml Laboratory Data 24H LABS Laboratory Tests 2 07/30/21 03:36: Nucleated Red Blood Cells % (auto) 0.0, Immature Platelet Fraction 1.5, Anion Gap 8, Glomerular Filtration Rate > 60.0, Calcium Level 7.6L, Total Bilirubin 1.8H, Aspartate Amino Transf (AST/SGOT) 5L, Alanine Aminotransferase (ALT/SGPT) 9L, Alkaline Phosphatase 42L, Total Protein 4.3L, Albumin 1.4L, Albumin/Globulin Ratio 0.5L 07/30/21 08:46: Nucleated Red Blood Cells % (auto) 0.0 07/30/21 14:52: Nucleated Red Blood Cells % (auto) 0.0 CBC/BMP Laboratory Tests 07/30/21 03:36 07/30/21 08:46 07/30/21 14:52 Microbiology Microbiology 07/27/21 Gastrointestinal Tract Panel (PCR) - Final, Complete 07/26/21 Respiratory Virus Panel (PCR) ([facility]SEFINA) - Final, Complete 07/26/21 Blood Culture - Preliminary, Resulted No Growth after 72 hours. All specime... 07/26/21 Blood Culture - Preliminary, Resulted No Growth after 72 hours. All specime... EVY MARTIN MD Jul 30, 2021 16:28
[2021-07-30] MEDS: METOPROLOL TART 50 MG TAB PO SCH ×2 (17:59→18:00)
[2021-07-30] MEDS: ONDANSETRON 4MG/2ML VIAL IV PRN (18:40)
[2021-07-30] MEDS ORDERED: PROMETHAZINE INJ 25 MG/ML VIAL (J2550) IV PRN (18:50)
[2021-07-30] MEDS: cefTRIAXone SOD 2 GM in D5W MINI-BAG PLUS 50 ML IV SCH (20:55)
[2021-07-30] MEDS: METOPROLOL 5 MG/5 ML VIAL IV SCH (20:56)
[2021-07-30 21:23] LABS: HEMATOCRIT 44.7 % (36.0-47.0); HEMOGLOBIN 15.4 g/dl (12.0-15.5); MEAN CORPUSCULAR HEMOGLOBIN 29.6 pg (27.0-33.0); MEAN CORPUSCULAR HGB CONC 34.5 g/dl (32.0-36.5); MEAN CORPUSCULAR VOLUME 85.8 fl (80.0-96.0); RED BLOOD COUNT 5.21 10^6/uL (4.00-5.40)
[2021-07-30 21:25] LABS: PLATELET COUNT, AUTOMATED 40 10^3/uL (150-450); WHITE BLOOD COUNT 0.1 10^3/uL (4.0-10.0)
[2021-07-31] VITALS: BP 132/67
[2021-07-31] MEDS: METOPROLOL TART 50 MG TAB PO SCH ×5 (00:27→23:58)
[2021-07-31 01:08] LABS: L. PNEUMOPHILA (1,3,4,5,6,8) <0.91 OD ratio (0.00-0.90)
[2021-07-31] MEDS: METOPROLOL 5 MG/5 ML VIAL IV SCH ×2 (03:15→10:04)
[2021-07-31 04:00] VITALS: BP 148/78
[2021-07-31 06:43] LABS: HEMATOCRIT 42.5 % (36.0-47.0); HEMOGLOBIN 14.7 g/dl (12.0-15.5); MEAN CORPUSCULAR HEMOGLOBIN 29.9 pg (27.0-33.0); MEAN CORPUSCULAR HGB CONC 34.6 g/dl (32.0-36.5); MEAN CORPUSCULAR VOLUME 86.6 fl (80.0-96.0); RED BLOOD COUNT 4.91 10^6/uL (4.00-5.40)
[2021-07-31 06:46] LABS: WHITE BLOOD COUNT 0.1 10^3/uL (4.0-10.0)
[2021-07-31 06:47] LABS: PLATELET COUNT, AUTOMATED 20 10^3/uL (150-450)
[2021-07-31 06:59] LABS: ALBUMIN 1.4 GM/DL (3.2-5.2); ALT/SGPT 7 U/L (12-78); BILIRUBIN,TOTAL 1.1 MG/DL (0.2-1.0); BLOOD UREA NITROGEN 27 MG/DL (7-18); CALCIUM LEVEL 7.5 MG/DL (8.8-10.2); CARBON DIOXIDE LEVEL 24 MEQ/L (21-32); CHLORIDE LEVEL 108 MEQ/L (98-107); CREATININE FOR GFR 0.57 MG/DL (0.55-1.30); GLOMERULAR FILTRATION RATE > 60.0 (>45); GLUCOSE, FASTING 129 MG/DL (70-100); POTASSIUM SERUM 3.5 MEQ/L (3.5-5.1); SODIUM LEVEL 139 MEQ/L (136-145); TOTAL PROTEIN 4.2 GM/DL (6.4-8.2)
[2021-07-31 07:57] VITALS: BP 142/74
[2021-07-31 08:00] VITALS: BP 147/75
[2021-07-31] MEDS ORDERED: CALCIUM GLUCONATE 1,000 MG in D5W MINI-BAG PLUS 100 ML IV ONE (08:30)
[2021-07-31 08:55] LABS: MAGNESIUM LEVEL 1.5 MG/DL (1.8-2.4)
[2021-07-31] MEDS: PANTOPRAZOLE 40MG VIAL (C9113 PER 1) IV SCH ×2 (09:00→20:49)
[2021-07-31] MEDS: FAMOTIDINE 20 MG TAB PO SCH (10:03)
[2021-07-31] MEDS: LACTOBACILLUS ACIDOPHILUS CAP (BACID) PO SCH ×2 (10:03→18:18)
[2021-07-31] MEDS: LOPERAMIDE 2 MG CAPLET PO PRN (10:16)
[2021-07-31] MEDS: ACETAMINOPHEN TAB 650MG DOSE (2X325MG) PO PRN (10:16)
[2021-07-31] MEDS: KCL 10MEQ/100ML SWI (KRUN) 10 MEQ in IV 1 EA IV SCH ×4 (11:47→15:40)
[2021-07-31] MEDS: FILGRASTIM 480 MCG/0.8 ML SYRINGE **SC ADMINISTRATION ONLY SC SCH ×2 (11:49→21:59)
[2021-07-31 12:00] VITALS: BP 142/67
--- NOTE | 2021-07-31 13:24 | IPNPDOC ---
Text Note Date of Service The patient was seen on 07/31/21. NOTE Subjective: -Yesterday nauseous by late afternoon and was also in Afib/flutter with RVR and was trasnferred back to PCU and started on q6 dosing beta navdeep. This morning she feels better, she is now back in sinus rhythm at a rate of 83 bpm. Objective: VITALS: see below CONSTITUTIONAL: Continues to appear ill and weak but pallor has improved, AO x 3 EYES: PERRLA, EOM intact, pale conjunctiva HENT, MOUTH: Normocephalic, atraumatic, dry mucous membranes, alopecia, catrachito oid face NECK: SUPPLE, no JVD, no lymphadenopathy, no carotid bruit CV: RRR, S1S2 normal, no murmurs/rubs/gallops RESPIRATORY: Clear to auscultation bilaterally, no rales/rhonchi/wheezes GI: Mild abdominal discomfort on palpation, BS positive in 4 quadrants, soft, nondistended, no rebound or guarding, no organomegaly MUSCULOSKELETAL: Normal ROM. No cyanosis, clubbing, swelling, joint deformity, e xtremity edema INTEGUMENTARY: pale skin, poor skin turgor, intact, no rashes, no lesions, no erythema NEUROLOGIC: Cranial Nerves II-XII are intact, no focal deficits LABORATORY DATA: Reviewed WBC 0.1 Hgb 14.7 platelets 20 na 139 K 3.5 Cr 0.57 IMAGING: CXR: Ill-defined areas of opacity involving the left hemithorax. CTA chest: Pulmonary arteries: Central pulmonary arteries show no intraluminal defect suggestive of clot. Pulmonary vascular/interstitial pattern does not suggest active pulmonary edema. Aorta: No thoracic aortic aneurysm or dissection. Lungs: Bronchiectasis and scarring in the left upper lobe is present and there is atelectasis or scarring in the left lower lobe. There may be focal airspace filling in the left lower lobe as well. Right lung shows no concerning focal abnormality. Pleural spaces: Small dependent left pleural effusion is present with transudate density. No pneumothorax. Heart: Peripheral pulmonary artery evaluation limited by cardiac and respiratory motion artifact. No overt cardiac enlargement or abnormal volume of pericardial fluid. Lymph nodes: No enlarged mediastinal lymph nodes. Diaphragm: Small hiatal hernia is present. Bones/joints: Bony structures show no acute fracture or destructive process. Soft tissues: Unremarkable. IMPRESSION: 1. No evidence of acute, central pulmonary embolus. Peripheral pulmonary arterial evaluation is limited by cardiac and respiratory motion artifact. 2. Small left pleural effusion, with areas of left lung bronchiectasis and possible infiltrates or scarring at the left lung base. No active pulmonary edema. The parenchymal changes in the left lung are less severe compared with the scan from July 2020 suggesting a favorable response to treatment CT abd/pelvis: FINDINGS: Diaphragm: Hiatal hernia measuring 4 cm is present. Liver: Multiple small hypodense hepatic lesions are present, difficult to characterize. No significant change in the short interim. Gallbladder and bile ducts: Gallbladder is present and shows no evidence of gallstone. Pancreas: Pancreas appears normal. No focal mass or peripancreatic inflammation. Spleen: Spleen appears homogeneous without focal mass. Adrenal glands: Adrenal glands are normal in appearance. Kidneys and ureters: Kidneys appear normal, with no stone, solid mass or hydronephrosis. Stomach and bowel: No evidence of small bowel obstruction. Long segment mural edema and pericolonic stranding suggests inflammatory or infectious colitis involving the cecum, ascending and transverse colon, with lesser involvement of the descending and sigmoid portions. No evidence of acute diverticulitis. Appendix: Normal caliber appendix is identified, with no adjacent inflammation. Intraperitoneal space: No pneumoperitoneum. Vasculature: No aortic aneurysm. Main portal and splenic veins enhance normally. Lymph nodes: No enlarged lymph nodes. Urinary bladder: Urinary bladder appears normal. Reproductive: Female reproductive organs appear unremarkable. Bones/joints: Bony structures are normal except for lumbar spine degenerative disc changes. Soft tissues: Unremarkable. IMPRESSION: 1. Findings are suggestive of inflammatory or infectious colitis, new since the CT from 1 month ago. This predominantly involves the ascending and transverse colon but has some lim colonic involvement 2. Multiple low-density hepatic lesions which may represent cysts but are of indeterminate density and could be solid MICRO: F/u blood cultures, sputum culture, GI panel ASSESSMENT: 60-year-old W with small cell lung carcinoma with brain , liver and lung metastasis recently on topotecan who follows with Dr. Rodriguez, who presented to [facility] emergency room with the chief complaint of increased weakness and was admitted with chemo induced profound pancytopenia and colitis with bloody diarrhea with +SIRS criteria c/f sepsis with course c/b Afib and sometimes flutter with RVR PLAN: Afib and sometimes flutter w/ RVR: has a history of paroxysmal Afib: -started on metop 50Q6H, after IV pushes with good effect, now back in sinus -no AC given profound thrombocytopenia -had STAT echo still without a read -consulted Dr. Olivas, cardiology still to evaluate her -telemetry -daily mag and K check and repletion +SIRS w/ fever, tachycardia, diarrhea and leukopenia, noted colitis -LA wnl -CXR and CTA without sami infiltrates or opacities, with small effusion -Resp panel neg -s/p IVF -tylenol PRN -Sputum, Blood cultures negative to date -GI panel was negative for C.diff, on PRN loperamide -f/u legionella, mycoplasma -Not sure why no urine was collected at admission pre-antibiotic therapy in febrile neutropenic patient. Unfortunately this is day 6 of empiric antibiotics, on IV ceftriaxone Colitis -No evidence of C. diff on GI panel that was negative -f/u legionella -IVFs, probiotic -c/w empiric antibiotics now on PO cipro, dc'd IV zosyn, given pancytopenia, recent fevers and colitis, though this may very well be inflammatory Pancytopenia (anemia, leukopenia, thrombocytopenia) 2/2 to tocotecan -GI bleeding stopped, with stool now brown, monitor closely -s/p 8 units PRBC, 5 leukoreduced irradiated PLTs, 4 FFP, Vit K SQ. Goal Hgb >8, platelets >20 -Continue BID neupogen per onc. Continue until patient's ANC > 1500 -Spoke with Dr. Rodriguez, the patient's heme/onc -Daily CBC -Per discussion with patient and , now DNR/DNI, updated, MOLST signed and in chart. 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 Most recently took oral topotecan 5 days 2 weeks ago. -Per last office note on 07/21/2021, it was discussed that chemotherapy may not be helping her cancer and that they may need to start planning for palliative care or even hospice. -Heme/onc onboard -Spoke with , and conclusion of our [facility] discussion was to switch her to DNR/DNI, updated, MOLST signed and in chart GERD -PPI IV Chronic pain secondary to malignancy -c/w home pain medications Graves Disease with hypothyroid conversion s/p ablation -C/w levothyroxine DVT pxx -SCDs, teds DISPOSITION: Admitted under acute inpatient status. Heme/onc consulted. Full Code. VS,Fishbone, I+O VS, Fishbone, I+O Laboratory Tests 07/30/21 08:46 07/30/21 14:52 07/30/21 20:53 07/31/21 06:21 Vital Signs Date Time Temp Pulse Resp B/P (MAP) Pulse Ox O2 Delivery O2 Flow Rate FiO2 07/31/21 07:57 98.5 88 17 142/74 (96) 95 Room Air 07/28/21 12:00 1.0 I&O- Last 24 Hours up to 6 AM 07/31/21 06:00 Intake Total 1500 ml Output Total 0 ml Balance 1500 ml HUSSAIN HOANG MD Jul 31, 2021 08:36
--- NOTE | 2021-07-31 15:09 | ECHO ---
ECHOCARDIOGRAM DATE OF PROCEDURE: 07/26/2021 Age: 60 Gender: Female Height: 63 inches Weight: 166 pounds Body surface area: 1.79 m2 Inpatient. Progressive care unit (PCU), room 3227 REFERRING PHYSICIAN: Renu Mendoza M.D. INDICATION: Cardiac dysrhythmia/paroxysmal atrial fibrillation. MEASUREMENTS: 2D Measurements: RV - 2.8 cm LV - 5.0 cm Septum 1.1 cm Posterior wall 1.1 cm Aortic root 3.0 cm LA - 4.2 cm LVEF 65% Doppler Measurements; AV - 1.44 m/s LVOT - 1.06 m/s MV-E 97, A 105, E/A ratio 0.9 Early mitral deceleration time 176 msec E prime medial 5.4 A prime medial 8 E prime lateral 6.9 Average E/E prime ratio 15.8/PCWP - 21.5 mmHg PV - 1.05 m/s RVSP 37 mmHg IVC - 2.0 cm COMMENTS: Underlying sinus tachycardia without intraventricular conduction disturbance with bout of paroxysmal atrial fibrillation and rate up to 140-150 BMP. This subsequently converted back to sinus rhythm. M-mode and 2-dimensional echocardiography was performed with pulse, continuous wave, color flow, and tissue Doppler studies. All Doppler measurements above were made while the patient was in sinus rhythm. Normal left ventricular size and wall thickness and wall motion. Mildly dilated left atrium with grade 1 LV diastolic dysfunction and currently elevated estimated mean left atrial pressure. Normal right heart chamber sizes and motion with estimated pulmonary arterial pressure mildly increased. Inferior vena cava was upper limits of normal size with adequate respiratory collapse, in keeping with central venous pressure of approximately 10 mmHg. Normal aortic dimensions. Mild aortic valvular sclerosis without stenosis and very mild insufficiency. Normal-appearing mitral valvular apparatus with no more than trace insufficiency. Normal-appearing tricuspid valve with mild insufficiency. No apparent intracardiac mass or pericardial effusion but fairly large left pleural effusion.
[2021-07-31 16:13] LABS: HEMATOCRIT 47.6 % (36.0-47.0); HEMOGLOBIN 16.4 g/dl (12.0-15.5); MEAN CORPUSCULAR HEMOGLOBIN 29.6 pg (27.0-33.0); MEAN CORPUSCULAR HGB CONC 34.5 g/dl (32.0-36.5); MEAN CORPUSCULAR VOLUME 85.9 fl (80.0-96.0); RED BLOOD COUNT 5.54 10^6/uL (4.00-5.40)
[2021-07-31 16:14] LABS: WHITE BLOOD COUNT 0.1 10^3/uL (4.0-10.0)
[2021-07-31 16:15] LABS: PLATELET COUNT, AUTOMATED 10 10^3/uL (150-450)
[2021-07-31 20:00] VITALS: BP 139/73
[2021-07-31] MEDS: cefTRIAXone SOD 2 GM in D5W MINI-BAG PLUS 50 ML IV SCH (20:49)
[2021-07-31 22:01] LABS: HEMATOCRIT 47.8 % (36.0-47.0); HEMOGLOBIN 16.5 g/dl (12.0-15.5); MEAN CORPUSCULAR HEMOGLOBIN 29.8 pg (27.0-33.0); MEAN CORPUSCULAR HGB CONC 34.5 g/dl (32.0-36.5); MEAN CORPUSCULAR VOLUME 86.4 fl (80.0-96.0); RED BLOOD COUNT 5.53 10^6/uL (4.00-5.40)
[2021-07-31 22:04] LABS: PLATELET COUNT, AUTOMATED 7 10^3/uL (150-450); WHITE BLOOD COUNT 0.2 10^3/uL (4.0-10.0)
[2021-08-01] VITALS (19 sets, daily range): BP systolic 138–164; BP diastolic 69–82
[2021-08-01] MEDS: ONDANSETRON 4MG/2ML VIAL IV PRN ×2 (00:08→19:03)
[2021-08-01 05:24] LABS: ALBUMIN 1.5 GM/DL (3.2-5.2); ALT/SGPT 6 U/L (12-78); BILIRUBIN,TOTAL 1.4 MG/DL (0.2-1.0); BLOOD UREA NITROGEN 26 MG/DL (7-18); CALCIUM LEVEL 7.5 MG/DL (8.8-10.2); CARBON DIOXIDE LEVEL 26 MEQ/L (21-32); CHLORIDE LEVEL 102 MEQ/L (98-107); CREATININE FOR GFR 0.74 MG/DL (0.55-1.30); GLOMERULAR FILTRATION RATE > 60.0 (>45); GLUCOSE, FASTING 150 MG/DL (70-100); POTASSIUM SERUM 3.8 MEQ/L (3.5-5.1); SODIUM LEVEL 136 MEQ/L (136-145); TOTAL PROTEIN 4.4 GM/DL (6.4-8.2)
[2021-08-01] MEDS: METOPROLOL TART 50 MG TAB PO SCH ×4 (05:29→23:56)
--- NOTE | 2021-08-01 08:34 | ECGEPIP ---
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
--- NOTE | 2021-08-01 08:47 | ECGEPIP ---
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
[2021-08-01] MEDS ORDERED: MAG SULF 1GM/100ML (MAG RUN) 1 GM in IV 1 EA IV ONE (08:50)
[2021-08-01] MEDS ORDERED: FUROSEMIDE 20MG/2ML VIAL (J1940) IV ONE (08:50)
[2021-08-01] MEDS: LACTOBACILLUS ACIDOPHILUS CAP (BACID) PO SCH ×2 (09:00→18:00)
[2021-08-01] MEDS: FAMOTIDINE 20 MG TAB PO SCH (09:00)
[2021-08-01] MEDS: PANTOPRAZOLE 40MG VIAL (C9113 PER 1) IV SCH ×2 (09:00→20:57)
[2021-08-01] MEDS: FILGRASTIM 480 MCG/0.8 ML SYRINGE **SC ADMINISTRATION ONLY SC SCH ×2 (10:52→22:12)
--- NOTE | 2021-08-01 11:45 | IPNPDOC ---
Text Note Date of Service The patient was seen on 08/01/21. NOTE Subjective: -No acute complaints, taking some PO quite well -Remains in sinus rhythm Objective: VITALS: see below CONSTITUTIONAL: Continues to appear ill and weak but pallor has improved, AO x 3 EYES: PERRLA, EOM intact, pale conjunctiva HENT, MOUTH: Normocephalic, atraumatic, dry mucous membranes, alopecia, cushingoid face NECK: SUPPLE, no JVD, no lymphadenopathy, no carotid bruit CV: RRR, S1S2 normal, no murmurs/rubs/gallops RESPIRATORY: Clear to auscultation bilaterally, no rales/rhonchi/wheezes GI: Mild abdominal discomfort on palpation, BS positive in 4 quadrants, soft, nondistended, no rebound or guarding, no organomegaly MUSCULOSKELETAL: Normal ROM. No cyanosis, clubbing, swelling, joint deformity, extremity edema INTEGUMENTARY: pale skin, poor skin turgor, intact, no rashes, no lesions, no erythema NEUROLOGIC: Cranial Nerves II-XII are intact, no focal deficits LABORATORY DATA: Reviewed WBC 0.2 Hgb 16.5 platelets 7 na 136 K 3.8 Cr 0.74 mag 1.5 IMAGING: CXR: Ill-defined areas of opacity involving the left hemithorax. CTA chest: Pulmonary arteries: Central pulmonary arteries show no intraluminal defect suggestive of clot. Pulmonary vascular/interstitial pattern does not suggest active pulmonary edema. Aorta: No thoracic aortic aneurysm or dissection. Lungs: Bronchiectasis and scarring in the left upper lobe is present and there is atelectasis or scarring in the left lower lobe. There may be focal airspace filling in the left lower lobe as well. Right lung shows no concerning focal abnormality. Pleural spaces: Small dependent left pleural effusion is present with transudate density. No pneumothorax. Heart: Peripheral pulmonary artery evaluation limited by cardiac and respiratory motion artifact. No overt cardiac enlargement or abnormal volume of pericardial fluid. Lymph nodes: No enlarged mediastinal lymph nodes. Diaphragm: Small hiatal hernia is present. Bones/joints: Bony structures show no acute fracture or destructive process. Soft tissues: Unremarkable. IMPRESSION: 1. No evidence of acute, central pulmonary embolus. Peripheral pulmonary arterial evaluation is limited by cardiac and respiratory motion artifact. 2. Small left pleural effusion, with areas of left lung bronchiectasis and possible infiltrates or scarring at the left lung base. No active pulmonary edema. The parenchymal changes in the left lung are less severe compared with the scan from July 2020 suggesting a favorable response to treatment CT abd/pelvis: FINDINGS: Diaphragm: Hiatal hernia measuring 4 cm is present. Liver: Multiple small hypodense hepatic lesions are present, difficult to characterize. No significant change in the short interim. Gallbladder and bile ducts: Gallbladder is present and shows no evidence of gallstone. Pancreas: Pancreas appears normal. No focal mass or peripancreatic inflammation. Spleen: Spleen appears homogeneous without focal mass. Adrenal glands: Adrenal glands are normal in appearance. Kidneys and ureters: Kidneys appear normal, with no stone, solid mass or hydronephrosis. Stomach and bowel: No evidence of small bowel obstruction. Long segment mural edema and pericolonic stranding suggests inflammatory or infectious colitis involving the cecum, ascending and transverse colon, with lesser involvement of the descending and sigmoid portions. No evidence of acute diverticulitis. Appendix: Normal caliber appendix is identified, with no adjacent inflammation. Intraperitoneal space: No pneumoperitoneum. Vasculature: No aortic aneurysm. Main portal and splenic veins enhance normally. Lymph nodes: No enlarged lymph nodes. Urinary bladder: Urinary bladder appears normal. Reproductive: Female reproductive organs appear unremarkable. Bones/joints: Bony structures are normal except for lumbar spine degenerative disc changes. Soft tissues: Unremarkable. IMPRESSION: 1. Findings are suggestive of inflammatory or infectious colitis, new since the CT from 1 month ago. This predominantly involves the ascending and transverse colon but has some lim colonic involvement 2. Multiple low-density hepatic lesions which may represent cysts but are of indeterminate density and could be solid MICRO: F/u blood cultures, sputum culture, GI panel ASSESSMENT: 60-year-old W with small cell lung carcinoma with brain , liver and lung metastasis recently on topotecan who follows with Dr. Rodriguez, who presented to [facility] emergency room with the chief complaint of increased weakness and was admitted with chemo induced profound pancytopenia and colitis with bloody diarrhea with +SIRS criteria c/f sepsis with course c/b Afib and sometimes flut ter with RVR. PLAN: Afib and sometimes flutter w/ RVR: has a history of paroxysmal Afib: -continue metop 50Q6H, now back in sinus -no AC given profound thrombocytopenia -had STAT echo still without a read -consulted Dr. Olivas, cardiology still to evaluate her -telemetry -daily mag and K check and repletion +SIRS w/ fever, tachycardia, diarrhea and leukopenia, noted colitis -LA wnl -CXR and CTA without sami infiltrates or opacities, with small effusion -Resp panel neg -s/p IVF -tylenol PRN -Sputum, Blood cultures negative to date -GI panel was negative for C.diff, on PRN loperamide -f/u legionella, mycoplasma -Not sure why no urine was collected at admission pre-antibiotic therapy in febrile neutropenic patient. Unfortunately this is day 6 of empiric antibiotics, on IV ceftriaxone Colitis -No evidence of C. diff on GI panel that was negative -f/u legionella -IVFs, probiotic -c/w empiric antibiotics now on PO cipro, dc'd IV zosyn, given pancytopenia, recent fevers and colitis, though this may very well be inflammatory Pancytopenia (anemia, leukopenia, thrombocytopenia) 2/2 to tocotecan -GI bleeding stopped, with stool now brown, monitor closely -s/p 8 units PRBC, 7 leukoreduced irradiated PLTs (including the 2 she is receiving currently for platelets of 7), 4 FFP, Vit K SQ. Goal Hgb >8, platelets >20 -Continue BID neupogen per onc. Continue until patient's ANC > 1500 -Spoke with Dr. Rodriguez, the patient's heme/onc -Daily CBC -Per discussion with patient and , now DNR/DNI, updated, MOLST signed and in chart. 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 Most recently took oral topotecan 5 days 2 weeks ago. -Per last office note on 07/21/2021, it was discussed that chemotherapy may not be helping her cancer and that they may need to start planning for palliative care or even hospice. -Heme/onc onboard -Spoke with , and conclusion of our [facility] discussion was to switch her to DNR/DNI, updated, MOLST signed and in chart GERD -PPI IV Chronic pain secondary to malignancy -c/w home pain medications Graves Disease with hypothyroid conversion s/p ablation -C/w levothyroxine DVT pxx -SCDs, teds DISPOSITION: Admitted under acute inpatient status. Heme/onc consulted. Full Code. VS,Eribertobone, I+O VS, Fishbone, I+O Laboratory Tests 07/31/21 15:47 07/31/21 21:38 08/01/21 04:36 Vital Signs Date Time Temp Pulse Resp B/P (MAP) Pulse Ox O2 Delivery O2 Flow Rate FiO2 08/01/21 07:09 97.8 82 16 163/78 94 Room Air 07/28/21 12:00 1.0 I&O- Last 24 Hours up to 6 AM 08/01/21 06:00 Intake Total 2378 ml Output Total 0 ml Balance 2378 ml HUSSAIN HOANG MD Aug 01, 2021 08:56
[2021-08-01 11:59] LABS: HEMATOCRIT 50.2 % (36.0-47.0); HEMOGLOBIN 17.3 g/dl (12.0-15.5); MEAN CORPUSCULAR HEMOGLOBIN 29.7 pg (27.0-33.0); MEAN CORPUSCULAR HGB CONC 34.5 g/dl (32.0-36.5); MEAN CORPUSCULAR VOLUME 86.1 fl (80.0-96.0); RED BLOOD COUNT 5.83 10^6/uL (4.00-5.40)
[2021-08-01 12:04] LABS: PLATELET COUNT, AUTOMATED 4 10^3/uL (150-450); WHITE BLOOD COUNT 0.2 10^3/uL (4.0-10.0)
[2021-08-01] MEDS ORDERED: NS 1,000 ML IV SCH (17:30)
[2021-08-01] MEDS: cefTRIAXone SOD 2 GM in D5W MINI-BAG PLUS 50 ML IV SCH (21:07)
[2021-08-01 21:48] LABS: HEMATOCRIT 44.6 % (36.0-47.0); HEMOGLOBIN 15.5 g/dl (12.0-15.5); MEAN CORPUSCULAR HEMOGLOBIN 29.5 pg (27.0-33.0); MEAN CORPUSCULAR HGB CONC 34.8 g/dl (32.0-36.5); RED BLOOD COUNT 5.25 10^6/uL (4.00-5.40)
[2021-08-01 21:51] LABS: WHITE BLOOD COUNT 0.2 10^3/uL (4.0-10.0)
[2021-08-01 21:53] LABS: PLATELET COUNT, AUTOMATED 14 10^3/uL (150-450)
[2021-08-02] VITALS (18 sets, daily range): BP systolic 118–148; BP diastolic 57–86
[2021-08-02] MEDS: METOPROLOL TART 50 MG TAB PO SCH ×3 (06:15→17:10)
[2021-08-02] MEDS: FAMOTIDINE 20 MG TAB PO SCH (08:38)
[2021-08-02] MEDS: FUROSEMIDE 20MG/2ML VIAL (J1940) IV SCH (08:38)
[2021-08-02] MEDS: PANTOPRAZOLE 40MG VIAL (C9113 PER 1) IV SCH ×2 (08:38→20:57)
[2021-08-02] MEDS: LACTOBACILLUS ACIDOPHILUS CAP (BACID) PO SCH ×2 (08:38→17:10)
[2021-08-02] MEDS: fentaNYL 25 MCG/HR PATCH TOP SCH (08:40)
[2021-08-02 08:48] LABS: BASO % 4.2 % (0.0-1.0); HEMATOCRIT 44.2 % (36.0-47.0); HEMOGLOBIN 15.1 g/dl (12.0-15.5); LYMPH # 0.1 10^3/uL (1.5-5.0); LYMPH % 37.5 % (24.0-44.0); MEAN CORPUSCULAR HEMOGLOBIN 29.3 pg (27.0-33.0); MEAN CORPUSCULAR HGB CONC 34.2 g/dl (32.0-36.5); MEAN CORPUSCULAR VOLUME 85.8 fl (80.0-96.0); MONO % 8.3 % (2.0-8.0); NEUTROPHILS % 45.8 % (36.0-66.0); RED BLOOD COUNT 5.15 10^6/uL (4.00-5.40)
[2021-08-02 08:53] LABS: NEUTROPHILS # 0.1 10^3/uL (1.5-8.5); PLATELET COUNT, AUTOMATED 12 10^3/uL (150-450); WHITE BLOOD COUNT 0.2 10^3/uL (4.0-10.0)
[2021-08-02 09:13] LABS: BLOOD UREA NITROGEN 20 MG/DL (7-18); CALCIUM LEVEL 7.5 MG/DL (8.8-10.2); CARBON DIOXIDE LEVEL 27 MEQ/L (21-32); CHLORIDE LEVEL 102 MEQ/L (98-107); CREATININE FOR GFR 0.57 MG/DL (0.55-1.30); GLOMERULAR FILTRATION RATE > 60.0 (>45); GLUCOSE, FASTING 139 MG/DL (70-100); SODIUM LEVEL 135 MEQ/L (136-145)
[2021-08-02] MEDS: KCL 10MEQ/100ML SWI (KRUN) 10 MEQ in IV 1 EA IV SCH ×6 (10:40→17:09)
[2021-08-02] MEDS: FILGRASTIM 480 MCG/0.8 ML SYRINGE **SC ADMINISTRATION ONLY SC SCH (10:40)
[2021-08-02 11:06] LABS: MAGNESIUM LEVEL 1.7 MG/DL (1.8-2.4)
--- NOTE | 2021-08-02 11:36 | IPNPDOC ---
Text Note Date of Service The patient was seen on 08/02/21. NOTE Subjective: -No acute complaints, picking at her breakfast -Remains in sinus rhythm Objective: VITALS: see below CONSTITUTIONAL: Continues to appear ill and weak but pallor has improved, AO x 3 EYES: PERRLA, EOM intact, pale conjunctiva HENT, MOUTH: Normocephalic, atraumatic, dry mucous membranes, alopecia, cushingoid face NECK: SUPPLE, no JVD, no lymphadenopathy, no carotid bruit CV: RRR, S1S2 normal, no murmurs/rubs/gallops RESPIRATORY: Clear to auscultation bilaterally, no rales/rhonchi/wheezes GI: Mild abdominal discomfort on palpation, BS positive in 4 quadrants, soft, nondistended, no rebound or guarding, no organomegaly MUSCULOSKELETAL: Normal ROM. No cyanosis, clubbing, swelling, joint deformity, extremity edema INTEGUMENTARY: pale skin, poor skin turgor, intact, no rashes, no lesions, no erythema NEUROLOGIC: Cranial Nerves II-XII are intact, no focal deficits LABORATORY DATA: Reviewed WBC 0.2 Hgb 16.5 platelets 7 na 136 K 3.8 Cr 0.74 mag 1.5 IMAGING: CXR: Ill-defined areas of opacity involving the left hemithorax. CTA chest: Pulmonary arteries: Central pulmonary arteries show no intraluminal defect suggestive of clot. Pulmonary vascular/interstitial pattern does not suggest active pulmonary edema. Aorta: No thoracic aortic aneurysm or dissection. Lungs: Bronchiectasis and scarring in the left upper lobe is present and there is atelectasis or scarring in the left lower lobe. There may be focal airspace filling in the left lower lobe as well. Right lung shows no concerning focal abnormality. Pleural spaces: Small dependent left pleural effusion is present with transudate density. No pneumothorax. Heart: Peripheral pulmonary artery evaluation limited by cardiac and respiratory motion artifact. No overt cardiac enlargement or abnormal volume of pericardial fluid. Lymph nodes: No enlarged mediastinal lymph nodes. Diaphragm: Small hiatal hernia is present. Bones/joints: Bony structures show no acute fracture or destructive process. Soft tissues: Unremarkable. IMPRESSION: 1. No evidence of acute, central pulmonary embolus. Peripheral pulmonary arterial evaluation is limited by cardiac and respiratory motion artifact. 2. Small left pleural effusion, with areas of left lung bronchiectasis and possible infiltrates or scarring at the left lung base. No active pulmonary edema. The parenchymal changes in the left lung are less severe compared with the scan from July 2020 suggesting a favorable response to treatment CT abd/pelvis: FINDINGS: Diaphragm: Hiatal hernia measuring 4 cm is present. Liver: Multiple small hypodense hepatic lesions are present, difficult to characterize. No significant change in the short interim. Gallbladder and bile ducts: Gallbladder is present and shows no evidence of gallstone. Pancreas: Pancreas appears normal. No focal mass or peripancreatic inflammation. Spleen: Spleen appears homogeneous without focal mass. Adrenal glands: Adrenal glands are normal in appearance. Kidneys and ureters: Kidneys appear normal, with no stone, solid mass or hydronephrosis. Stomach and bowel: No evidence of small bowel obstruction. Long segment mural edema and pericolonic stranding suggests inflammatory or infectious colitis involving the cecum, ascending and transverse colon, with lesser involvement of the descending and sigmoid portions. No evidence of acute diverticulitis. Appendix: Normal caliber appendix is identified, with no adjacent inflammation. Intraperitoneal space: No pneumoperitoneum. Vasculature: No aortic aneurysm. Main portal and splenic veins enhance normally. Lymph nodes: No enlarged lymph nodes. Urinary bladder: Urinary bladder appears normal. Reproductive: Female reproductive organs appear unremarkable. Bones/joints: Bony structures are normal except for lumbar spine degenerative disc changes. Soft tissues: Unremarkable. IMPRESSION: 1. Findings are suggestive of inflammatory or infectious colitis, new since the CT from 1 month ago. This predominantly involves the ascending and transverse colon but has some lim colonic involvement 2. Multiple low-density hepatic lesions which may represent cysts but are of indeterminate density and could be solid MICRO: F/u blood cultures, sputum culture, GI panel ASSESSMENT: 60-year-old W with small cell lung carcinoma with brain , liver and lung metastasis recently on topotecan who follows with Dr. Rodriguez, who presented to [facility] emergency room with the chief complaint of increased weakness and was admitted with chemo induced profound pancytopenia and colitis with bloody diarrhea with +SIRS criteria c/f sepsis with course c/b Afib and sometimes flutt er with RVR. PLAN: Afib and sometimes flutter w/ RVR: has a history of paroxysmal Afib: -continue metop 50Q6H, now back in sinus -no AC given profound thrombocytopenia -had STAT echo, read pending -consulted Dr. Olivas, did not see her? -telemetry -daily mag and K check and repletion +SIRS w/ fever, tachycardia, diarrhea and leukopenia, noted colitis -LA wnl -CXR and CTA without sami infiltrates or opacities, with small effusion -Resp panel neg -on IVF @ 75cc/hr -tylenol PRN -Sputum, Blood cultures negative to date -GI panel was negative for C.diff, on PRN loperamide -f/u legionella, mycoplasma Colitis -No evidence of C. diff on GI panel that was negative -f/u legionella -IVFs, probiotic -c/w empiric antibiotics now on IV ceftriaxone, given pancytopenia, recent fevers and colitis, though this may very well be inflammatory Pancytopenia (anemia, leukopenia, thrombocytopenia) 2/2 to tocotecan -GI bleeding stopped, with stool now brown, monitor closely -s/p 8 units PRBC, 9 leukoreduced irradiated PLTs (will be receiving 2 more pools this AM), 4 FFP, Vit K SQ. Goal Hgb >8, platelets >20 -Continue BID neupogen per onc. Continue until patient's ANC > 1500 -Spoke with Dr. Rodriguez, the patient's heme/onc -Daily CBC -Per discussion with patient and , now DNR/DNI, updated, MOLST signed and in chart. 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 Most recently took oral topotecan 5 days 2 weeks ago. -Per last office note on 07/21/2021, it was discussed that chemotherapy may not be helping her cancer and that they may need to start planning for palliative care or even hospice. -Heme/onc onboard -Spoke with , and conclusion of our C discussion was to switch her to DNR/DNI, updated, MOLST signed and in chart GERD -PPI IV Chronic pain secondary to malignancy -c/w home pain medications Graves Disease with hypothyroid conversion s/p ablation -C/w levothyroxine Hypokalemia -check BMP daily and repleted to K>3.5 Hypomagnesemia: -check mag daily and repleted to Mg>2 DVT pxx -SCDs, teds DISPOSITION: Admitted under acute inpatient status. Heme/onc consulted. DNR/DNI VS,Fishbone, I+O VS, Fishbone, I+O Laboratory Tests 10/17/21 11:48 08/01/21 21:26 08/02/21 07:53 Vital Signs Date Time Temp Pulse Resp B/P (MAP) Pulse Ox O2 Delivery O2 Flow Rate FiO2 08/02/21 08:40 18 08/02/21 08:00 97.6 85 148/78 (101) 96 Room Air 08/01/21 18:04 94 07/28/21 12:00 1.0 I&O- Last 24 Hours up to 6 AM 08/02/21 06:00 Intake Total 1890 ml Output Total 1 ml Balance 1889 ml HUSSAIN HOANG MD Aug 02, 2021 10:01
[2021-08-02] MEDS: cefTRIAXone SOD 2 GM in D5W MINI-BAG PLUS 50 ML IV SCH (21:00)
[2021-08-03] VITALS (15 sets, daily range): BP systolic 124–147; BP diastolic 59–72
[2021-08-03] MEDS: METOPROLOL TART 50 MG TAB PO SCH ×5 (00:29→23:50)
[2021-08-03] MEDS: FILGRASTIM 480 MCG/0.8 ML SYRINGE **SC ADMINISTRATION ONLY SC SCH ×4 (03:21→21:43)
[2021-08-03 05:19] LABS: BASO % 2.6 % (0.0-1.0); HEMATOCRIT 41.5 % (36.0-47.0); HEMOGLOBIN 14.3 g/dl (12.0-15.5); LYMPH # 0.1 10^3/uL (1.5-5.0); LYMPH % 25.6 % (24.0-44.0); MEAN CORPUSCULAR HEMOGLOBIN 29.5 pg (27.0-33.0); MEAN CORPUSCULAR HGB CONC 34.5 g/dl (32.0-36.5); MEAN CORPUSCULAR VOLUME 85.6 fl (80.0-96.0); MONO % 7.7 % (2.0-8.0); NEUTROPHILS % 51.3 % (36.0-66.0); RED BLOOD COUNT 4.85 10^6/uL (4.00-5.40)
[2021-08-03 05:21] LABS: NEUTROPHILS # 0.2 10^3/uL (1.5-8.5); PLATELET COUNT, AUTOMATED 11 10^3/uL (150-450); WHITE BLOOD COUNT 0.4 10^3/uL (4.0-10.0)
[2021-08-03 05:39] LABS: BLOOD UREA NITROGEN 17 MG/DL (7-18); CALCIUM LEVEL 7.1 MG/DL (8.8-10.2); CARBON DIOXIDE LEVEL 31 MEQ/L (21-32); CHLORIDE LEVEL 100 MEQ/L (98-107); CREATININE FOR GFR 0.52 MG/DL (0.55-1.30); GLOMERULAR FILTRATION RATE > 60.0 (>45); GLUCOSE, FASTING 118 MG/DL (70-100); MAGNESIUM LEVEL 1.3 MG/DL (1.8-2.4); SODIUM LEVEL 137 MEQ/L (136-145)
[2021-08-03] MEDS ORDERED: MAG SULF 1GM/100ML (MAG RUN) 1 GM in IV 1 EA IV ONE (07:30)
[2021-08-03] MEDS ORDERED: POTASSIUM CHLORIDE 10MEQ SR TABLET PO ONE (07:45)
[2021-08-03] MEDS: FAMOTIDINE 20 MG TAB PO SCH (08:12)
[2021-08-03] MEDS: LACTOBACILLUS ACIDOPHILUS CAP (BACID) PO SCH ×2 (08:12→17:48)
[2021-08-03] MEDS: MAGNESIUM OXIDE 400MG TAB (MAG-OX) PO SCH (08:14)
[2021-08-03] MEDS: PANTOPRAZOLE 40MG VIAL (C9113 PER 1) IV SCH ×2 (08:14→21:43)
[2021-08-03] MEDS: FUROSEMIDE 20MG/2ML VIAL (J1940) IV SCH (08:39)
[2021-08-03] MEDS: FENTANYL REMOVAL DOCUMENTATION MISC XX SCH (08:45)
[2021-08-03] MEDS: POTASSIUM CHLORIDE 10MEQ SR TABLET PO ONE ×2 (09:39→10:06)
[2021-08-03] MEDS: ONDANSETRON 4MG/2ML VIAL IV PRN (09:39)
--- NOTE | 2021-08-03 13:39 | IPNPDOC ---
Date Seen The patient was seen on 08/03/21. Progress Note Subjective: -No acute complaints, states that her appetite has picked up some. -Sinus rhythm. Denies palpitations, chest pain, SOB, fevers, chills Objective: PE: VITALS: see below CONSTITUTIONAL: AAOx3, resting in bed, appears ill EYES: PERRLA, EOM intact, pale conjunctiva HENT, MOUTH: Normocephalic, atraumatic, dry mucous membranes, alopecia, cushingoid face NECK: SUPPLE, no JVD, no lymphadenopathy, no carotid bruit CV: RRR, S1S2 normal, no murmurs/rubs/gallops RESPIRATORY: Clear to auscultation bilaterally, no rales/rhonchi/wheezes GI: Mild abdominal discomfort on palpation, BS positive in 4 quadrants, soft, nondistended, no rebound or guarding, no organomegaly MUSCULOSKELETAL: Normal ROM. No cyanosis, clubbing, swelling, joint deformity, extremity edema INTEGUMENTARY: pale skin, poor skin turgor, intact, no rashes, no lesions, no erythema NEUROLOGIC: Cranial Nerves II-XII are intact, no focal deficits LABORATORY DATA: Reviewed Please see below IMAGING: Echocardiogram 07/30/21: Underlying sinus tachycardia without intraventricular conduction disturbance with bout of paroxysmal atrial fibrillation and rate up to 140-150 BMP. This subsequently converted back to sinus rhythm. M-mode and 2-dimensional echocardiography was performed with pulse, continuous wave, color flow, and tissue Doppler studies. All Doppler measurements above were made while the patient was in sinus rhythm. Normal left ventricular size and wall thickness and wall motion. Mildly dilated left atrium with grade 1 LV diastolic dysfunction and currently elevated estimated mean left atrial pressure. Normal right heart chamber sizes and motion with estimated pulmonary arterial pressure mildly increased. Inferior vena cava was upper limits of normal size with adequate respiratory collapse, in keeping with central venous pressure of approximately 10 mmHg. Normal aortic dimensions. Mild aortic valvular sclerosis without stenosis and very mild insufficiency. Normal-appearing mitral valvular apparatus with no more than trace insufficiency. Normal-appearing tricuspid valve with mild insufficiency. No apparent intracardiac mass or pericardial effusion but fairly large left pleural effusion. CXR: Ill-defined areas of opacity involving the left hemithorax. CTA chest: 1. No evidence of acute, central pulmonary embolus. Peripheral pulmonary arterial evaluation is limited by cardiac and respiratory motion artifact. 2. Small left pleural effusion, with areas of left lung bronchiectasis and possible infiltrates or scarring at the left lung base. No active pulmonary edema. The parenchymal changes in the left lung are less severe compared with the scan from July 2020 suggesting a favorable response to treatment CT abd/pelvis: 1. Findings are suggestive of inflammatory or infectious colitis, new since the CT from 1 month ago. This predominantly involves the ascending and transverse colon but has some lim colonic involvement 2. Multiple low-density hepatic lesions which may represent cysts but are of indeterminate density and could be solid MICRO: Blood cultures, resp panel, GI panel, legionella neg ASSESSMENT: 60-year-old W with small cell lung carcinoma with brain , liver and lung metastasis recently on topotecan who follows with Dr. Rodriguez, who presented to [facility] emergency room with the chief complaint of increased weakness and was admitted with chemo induced profound pancytopenia and colitis with bloody diarrhea with +SIRS criteria c/f sepsis with course c/b Afib and sometimes flutter with RVR. PLAN: Paroxysmal Afib, flutter w/ RVR: has a history paroxysmal afib -Currently NSR, rate controlled -Echo above -telemetry -daily mag and K check and repletion -continue metop 50Q6H, no AC given profound thrombocytopenia -Dr. Olivas was [id number]/15/21, did not see her per prior hospitalist Colitis, resolved sepsis -LA wnl, low WBC with immunocompromised state -CT above -GI panel was negative for C.diff -Micro above -PRN loperamide, tylenol PRN, probiotic -Has been covering with ceftriaxone (Day 5) empirically given pancytopenia, recent fevers and colitis, though this may very well be inflammatory GI bleed likely 2/2 to colitis -GI bleeding stopped, with stool now brown, monitorig closely -s/p 8 units PRBC, 11 leukoreduced irradiated PLTs (including 2 more pools this AM), 4 FFP, Vit K SQ. Goal Hgb >8, platelets >20 per prior heme/onc note (Dr. Rodriguez) -Will likely need colonoscopy as o/p in 4-6 weeks after treatment -Daily CBC -Avoid AC for now Pancytopenia (anemia, leukopenia, thrombocytopenia) 2/2 to tocotecan -Improvement in H/H ;however, still low WBC and PLTs requiring blood products above -Continue BID neupogen per onc. Continue until patient's ANC > 1500 -Daily CBC -Per discussion with patient and , now DNR/DNI, updated, MOLST signed and in chart. -Spoke with Dr. Paulson, hematology/oncology. 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 Most recently took oral topotecan for 5 days approx 2 weeks prior to this admission -Per last office note on 07/21/2021, it was discussed that chemotherapy may not be helping her cancer and that they may need to start planning for palliative care or even hospice. -Heme/onc onboard -Now DNR/DNI, updated, MOLST signed and in chart GERD -PPI IV Chronic pain secondary to malignancy -c/w home pain medications Graves Disease with hypothyroid conversion s/p ablation -C/w levothyroxine Hypokalemia -check BMP daily and repleted to K>3.5 Hypomagnesemia: -check mag daily and repleted to Mg>2 DVT pxx -SCDs, teds DISPOSITION: Admitted under acute inpatient status. Heme/onc consulted and Dr. Paulson will see patient to follow up on 08/04/21. DNR/DNI VS, I&O, 24H, Fishbone Vital Signs/I&O Vital Signs Date Time Temp Pulse Resp B/P (MAP) Pulse Ox O2 Delivery O2 Flow Rate FiO2 08/03/21 13:00 97.6 90 18 138/60 96 Room Air 08/03/21 04:00 2.0 08/01/21 18:04 94 I&O- Last 24 Hours up to 6 AM 08/03/21 05:59 Intake Total 1967 ml Output Total 1000 ml Balance 967 ml Laboratory Data 24H LABS Laboratory Tests 2 08/03/21 04:49: Immature Granulocyte % (Auto) 12.8H, Neutrophils (%) (Auto) 51.3, Lymphocytes (%) (Auto) 25.6, Monocytes (%) (Auto) 7.7, Eosinophils (%) (Auto) 0.0, Basophils (%) (Auto) 2.6H, Neutrophils # (Auto) 0.2L, Lymphocytes # (Auto) 0.1L, Monocytes # (Auto) 0.0, Eosinophils # (Auto) 0.0, Basophils # (Auto) 0.0, Nucleated Red Blood Cells % (auto) 0.0, Immature Platelet Fraction 4.3, Anion Gap 6L, Glomerular Filtration Rate > 60.0, Calcium Level 7.1L, Magnesium Level 1.3L CBC/BMP Laboratory Tests 08/03/21 04:49 Microbiology Microbiology 07/27/21 Gastrointestinal Tract Panel (PCR) - Final, Complete 07/26/21 Respiratory Virus Panel (PCR) (JOSEFINA) - Final, Complete 07/26/21 Blood Culture - Final, Complete NO GROWTH AFTER 5 DAYS 07/26/21 Blood Culture - Final, Complete NO GROWTH AFTER 5 DAYS Aidee Connell MD Aug 03, 2021 13:39
[2021-08-03] MEDS: cefTRIAXone SOD 2 GM in D5W MINI-BAG PLUS 50 ML IV SCH (20:00)
[2021-08-04] VITALS (9 sets, daily range): BP systolic 114–131; BP diastolic 56–65
[2021-08-04 05:26] LABS: BASO % 1.4 % (0.0-1.0); HEMATOCRIT 39.6 % (36.0-47.0); HEMOGLOBIN 13.6 g/dl (12.0-15.5); LYMPH # 0.2 10^3/uL (1.5-5.0); LYMPH % 22.5 % (24.0-44.0); MEAN CORPUSCULAR HEMOGLOBIN 29.4 pg (27.0-33.0); MEAN CORPUSCULAR HGB CONC 34.3 g/dl (32.0-36.5); MEAN CORPUSCULAR VOLUME 85.7 fl (80.0-96.0); MONO # 0.1 10^3/uL (0.0-0.8); MONO % 8.5 % (2.0-8.0); NEUTROPHILS % 64.8 % (36.0-66.0); RED BLOOD COUNT 4.62 10^6/uL (4.00-5.40)
[2021-08-04 05:27] LABS: WHITE BLOOD COUNT 0.7 10^3/uL (4.0-10.0)
[2021-08-04 05:28] LABS: NEUTROPHILS # 0.5 10^3/uL (1.5-8.5); PLATELET COUNT, AUTOMATED 15 10^3/uL (150-450)
[2021-08-04] MEDS: METOPROLOL TART 50 MG TAB PO SCH ×4 (05:30→23:36)
[2021-08-04 05:49] LABS: BLOOD UREA NITROGEN 16 MG/DL (7-18); CALCIUM LEVEL 7.1 MG/DL (8.8-10.2); CARBON DIOXIDE LEVEL 36 MEQ/L (21-32); CHLORIDE LEVEL 97 MEQ/L (98-107); CREATININE FOR GFR 0.65 MG/DL (0.55-1.30); GLOMERULAR FILTRATION RATE > 60.0 (>45); GLUCOSE, FASTING 117 MG/DL (70-100); MAGNESIUM LEVEL 1.5 MG/DL (1.8-2.4); POTASSIUM SERUM 2.7 MEQ/L (3.5-5.1); SODIUM LEVEL 137 MEQ/L (136-145)
[2021-08-04] MEDS ORDERED: POTASSIUM CHLORIDE 10% LIQ 20 MEQ/15 ML UDC PO ONE (06:05)
[2021-08-04] MEDS ORDERED: MAG SULF 1GM/100ML (MAG RUN) 1 GM in IV 1 EA IV ONE (07:00)
[2021-08-04] MEDS: FUROSEMIDE 20MG/2ML VIAL (J1940) IV SCH (08:29)
[2021-08-04] MEDS: PANTOPRAZOLE 40MG VIAL (C9113 PER 1) IV SCH ×2 (08:29→20:16)
[2021-08-04] MEDS: MAGNESIUM OXIDE 400MG TAB (MAG-OX) PO SCH (08:30)
[2021-08-04] MEDS: KCL 10MEQ/100ML SWI (KRUN) 10 MEQ in IV 1 EA IV SCH ×4 (08:30→15:04)
[2021-08-04] MEDS: FAMOTIDINE 20 MG TAB PO SCH (08:30)
[2021-08-04] MEDS: LACTOBACILLUS ACIDOPHILUS CAP (BACID) PO SCH ×2 (08:30→17:08)
[2021-08-04] MEDS: FILGRASTIM 480 MCG/0.8 ML SYRINGE **SC ADMINISTRATION ONLY SC SCH ×2 (09:00→23:33)
[2021-08-04] MEDS: MEMANTINE 5MG TABLET (NAMENDA) PO SCH ×2 (11:30→20:15)
[2021-08-04] MEDS: ATORVASTATIN 20 MG TAB PO SCH (11:49)
[2021-08-04] MEDS: LEVOTHYROXINE 88MCG TABLET (0.088 MG) PO SCH (11:49)
--- NOTE | 2021-08-04 14:16 | IPNPDOC ---
Date Seen The patient was seen on 08/04/21. Progress Note Subjective: -Appears more awake and comfortable today. Eating slightly more of food for intake. -Spoke with at bedside, hematology to see today -No acute events overnight. -Getting 2 PLts today again -Denies palpitations, chest pain, SOB, fevers, chills, n/v/d. Objective: PE: VITALS: see below CONSTITUTIONAL: AAOx3, resting in bed, appears ill EYES: PERRLA, EOM intact, pale conjunctiva HENT, MOUTH: Normocephalic, atraumatic, dry mucous membranes, alopecia, cushingoid face NECK: SUPPLE, no JVD, no lymphadenopathy, no carotid bruit CV: RRR, S1S2 normal, no murmurs/rubs/gallops RESPIRATORY: Clear to auscultation bilaterally, no rales/rhonchi/wheezes GI: Mild abdominal discomfort on palpation, BS positive in 4 quadrants, soft, nondistended, no rebound or guarding, no organomegaly MUSCULOSKELETAL: Normal ROM. No cyanosis, clubbing, swelling, joint deformity, extremity edema INTEGUMENTARY: pale skin, poor skin turgor, intact, no rashes, no lesions, no erythema NEUROLOGIC: Cranial Nerves II-XII are intact, no focal deficits LABORATORY DATA: Reviewed Please see below IMAGING: Echocardiogram 07/30/21: Underlying sinus tachycardia without intraventricular conduction disturbance with bout of paroxysmal atrial fibrillation and rate up to 140-150 BMP. This subsequently converted back to sinus rhythm. M-mode and 2-dimensional echocardiography was performed with pulse, continuous wave, color flow, and tissue Doppler studies. All Doppler measurements above were made while the patient was in sinus rhythm. Normal left ventricular size and wall thickness and wall motion. Mildly dilated left atrium with grade 1 LV diastolic dysfunction and currently elevated estimated mean left atrial pressure. Normal right heart chamber sizes and motion with estimated pulmonary arterial pressure mildly increased. Inferior vena cava was upper limits of normal size with adequate respiratory collapse, in keeping with central venous pressure of approximately 10 mmHg. Normal aortic dimensions. Mild aortic valvular sclerosis without stenosis and very mild insufficiency. Normal-appearing mitral valvular apparatus with no more than trace insufficiency. Normal-appearing tricuspid valve with mild insufficiency. No apparent intracardiac mass or pericardial effusion but fairly large left pleural effusion. CXR: Ill-defined areas of opacity involving the left hemithorax. CTA chest: 1. No evidence of acute, central pulmonary embolus. Peripheral pulmonary arterial evaluation is limited by cardiac and respiratory motion artifact. 2. Small left pleural effusion, with areas of left lung bronchiectasis and possible infiltrates or scarring at the left lung base. No active pulmonary edema. The parenchymal changes in the left lung are less severe compared with the scan from July 2020 suggesting a favorable response to treatment CT abd/pelvis: 1. Findings are suggestive of inflammatory or infectious colitis, new since the CT from 1 month ago. This predominantly involves the ascending and transverse colon but has some lim colonic involvement 2. Multiple low-density hepatic lesions which may represent cysts but are of indeterminate density and could be solid MICRO: Blood cultures, resp panel, GI panel, legionella neg ASSESSMENT: 60-year-old W with small cell lung carcinoma with brain , liver and lung metastasis recently on topotecan who follows with Dr. Rodriguez, who presented to [facility] emergency room with the chief complaint of increased weakness and was admitted with chemo induced profound pancytopenia and colitis with bloody diarrhea with +SIRS criteria c/f sepsis with course c/b Afib and sometimes flutter with RVR. PLAN: Pancytopenia (anemia, leukopenia, thrombocytopenia) 2/2 to tocotecan -Stable H/H; however, still low WBC and PLTs requiring blood products -Continue BID neupogen per onc. Continue until patient's ANC > 1500 -Daily CBC -Per discussion with patient and , now DNR/DNI, updated, MOLST signed and in chart. -Spoke with Dr. Paulson, hematology/oncology, to see today and discuss plan going further. -Ceftriaxone empirically given (Day 6) GI bleed likely 2/2 to colitis -GI bleeding stopped, with stool now brown, monitorig closely -s/p 8 units PRBC, 13 leukoreduced irradiated PLTs (including 2 more pools this AM), 4 FFP, Vit K SQ. Goal Hgb >8, platelets >20 per prior heme/onc note (Dr. Rodriguez) -Will likely need colonoscopy as o/p in 4-6 weeks after treatment -Daily CBC -Avoid AC for now Paroxysmal Afib, flutter w/ RVR: has a history paroxysmal afib -Currently NSR, rate controlled -Echo above -telemetry -daily mag and K check and repletion -continue metop 50Q6H, no AC given profound thrombocytopenia -Dr. 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 Most recently took oral topotecan for 5 days approx 2 weeks prior to this admission -Per last office note on 07/21/2021, it was discussed that chemotherapy may not be helping her cancer and that they may need to start planning for palliative care or even hospice. -Heme/onc onboard -Now DNR/DNI, updated, MOLST signed and in chart GERD -PPI IV Chronic pain secondary to malignancy -c/w home pain medications Graves Disease with hypothyroid conversion s/p ablation -C/w levothyroxine Hypokalemia -check BMP daily and repleted to K>3.5 Hypomagnesemia: -check mag daily and repleted to Mg>2 DVT pxx -SCDs, teds DISPOSITION: Admitted under acute inpatient status. Heme/onc consulted and Dr. Paulson will see patient today to discuss plan going forward. DNR/DNI VS, I&O, 24H[facility] Vital Signs/I&O Vital Signs Date Time Temp Pulse Resp B/P (MAP) Pulse Ox O2 Delivery O2 Flow Rate FiO2 08/04/21 13:30 98.2 76 18 114/57 Room Air 08/04/21 11:46 94 08/03/21 04:00 2.0 08/01/21 18:04 94 I&O- Last 24 Hours up to 6 AM 08/04/21 06:00 Intake Total 1930 ml Output Total 1700 ml Balance 230 ml Laboratory Data 24H LABS Laboratory Tests 2 08/04/21 05:04: Immature Granulocyte % (Auto) 2.8, Neutrophils (%) (Auto) 64.8, Lymphocytes (%) (Auto) 22.5L, Monocytes (%) (Auto) 8.5H, Eosinophils (%) (Auto) 0.0, Basophils (%) (Auto) 1.4H, Neutrophils # (Auto) 0.5L, Lymphocytes # (Auto) 0.2L, Monocytes # (Auto) 0.1, Eosinophils # (Auto) 0.0, Basophils # (Auto) 0.0, Nucleated Red Blood Cells % (auto) 0.0, Immature Platelet Fraction 2.9, Anion Gap 4L, Glomerular Filtration Rate > 60.0, Calcium Level 7.1L, Magnesium Level 1.5L CBC/BMP Laboratory Tests 08/04/21 05:04 Microbiology Microbiology 07/27/21 Gastrointestinal Tract Panel (PCR) - Final, Complete 07/26/21 Respiratory Virus Panel (PCR) (JOSEFINA) - Final, Complete 07/26/21 Blood Culture - Final, Complete NO GROWTH AFTER 5 DAYS 07/26/21 Blood Culture - Final, Complete NO GROWTH AFTER 5 DAYS Aidee Connell MD Aug 04, 2021 14:16
--- NOTE | 2021-08-04 18:43 | IPNPDOC ---
Date Seen The patient was seen on 08/04/21. Progress Note SUBJECTIVE: Ms. Abril Pickett is a 60-year-old woman with metastatic small cell lung cancer more recently on oral topotecan chemotherapy. First cycle of chemotherapy was given first week of July 2021. She is currently admitted with profound neutropenia and thrombocytopenia likely related to chemotherapy. The patient was initially febrile on admission but has not had a fever since 07/28/2021. Continues on filgrastim injections and platelet transfusions. No bleeding noted at this time. OBJECTIVE PHYSICAL EXAMINATION: VITAL SIGNS: Please see below. GENERAL: Lying comfortably in bed not in distress, communicative, alert. HEENT: Pinkish conjunctive anicteric. CARDIOVASCULAR: S1-S2 regular. RESPIRATORY: Lungs fair air entry. No rhonchi no wheezing ABDOMINAL: Soft, nontender, no guarding. EXTREMITIES: No clubbing. No cyanosis. NEUROLOGICAL: Alert, oriented to time place and person. PSYCHOLOGICAL: Mood normal LABORATORY DATA, IMAGING STUDIES, MICROBIOLOGY: Please see below. ASSESSMENT AND PLAN: 60-year-old woman with metastatic small cell lung cancer started topotecan chemotherapy 07/2021. Now with profound neutropenia and thrombocytopenia likely related to bone marrow suppression from chemotherapy. Currently on filgrastim injections and platelet transfusion as needed. Neutropenia and thrombocytopenia seem to be slowly improving. ANC now at 0.5K/UL If patient is not actively bleeding would transfuse platelets only if platelet count 10 or below. Continue filgrastim injections until neutrophil count above 1.5. Expect blood counts to improve with time however may take some time to completely improve. I also discussed the option of hospice with the patient but she does not want to go on hospice at this time. Continue supportive care. Will arrange a follow-up appointment once patient is discharged from hospital. VS, I&O, 24H, [facility] Vital Signs/I&O Vital Signs Date Time Temp Pulse Resp B/P (MAP) Pulse Ox O2 Delivery O2 Flow Rate FiO2 08/04/21 17:08 90 118/58 08/04/21 16:53 97.6 18 92 Room Air 08/03/21 04:00 2.0 08/01/21 18:04 94 I&O- Last 24 Hours up to 6 AM 08/04/21 06:00 Intake Total 1930 ml Output Total 1700 ml Balance 230 ml Laboratory Data 24H LABS Laboratory Tests 2 08/04/21 05:04: Immature Granulocyte % (Auto) 2.8, Neutrophils (%) (Auto) 64.8, Lymphocytes (%) (Auto) 22.5L, Monocytes (%) (Auto) 8.5H, Eosinophils (%) (Auto) 0.0, Basophils (%) (Auto) 1.4H, Neutrophils # (Auto) 0.5L, Lymphocytes # (Auto) 0.2L, Monocytes # (Auto) 0.1, Eosinophils # (Auto) 0.0, Basophils # (Auto) 0.0, Nucleated Red Blood Cells % (auto) 0.0, Immature Platelet Fraction 2.9, Anion Gap 4L, Glomerular Filtration Rate > 60.0, Calcium Level 7.1L, Magnesium Level 1.5L CBC/BMP Laboratory Tests 08/04/21 05:04 Microbiology Microbiology 07/27/21 Gastrointestinal Tract Panel (PCR) - Final, Complete 07/26/21 Respiratory Virus Panel (PCR) ([facility]) - Final, Complete 07/26/21 Blood Culture - Final, Complete NO GROWTH AFTER 5 DAYS 07/26/21 Blood Culture - Final, Complete NO GROWTH AFTER 5 DAYS AHMET BREEN MD FAC Aug 04, 2021 18:42
[2021-08-04] MEDS: cefTRIAXone SOD 2 GM in D5W MINI-BAG PLUS 50 ML IV SCH (20:14)
[2021-08-05] VITALS: BP 117/60
[2021-08-05 04:00] VITALS: BP 108/75
[2021-08-05] MEDS: LEVOTHYROXINE 88MCG TABLET (0.088 MG) PO SCH (05:16)
[2021-08-05] MEDS: METOPROLOL TART 50 MG TAB PO SCH ×4 (05:17→23:44)
[2021-08-05 08:00] VITALS: BP 110/57
[2021-08-05] MEDS: FENTANYL REMOVAL DOCUMENTATION MISC XX SCH (08:55)
[2021-08-05] MEDS: fentaNYL 25 MCG/HR PATCH TOP SCH (08:56)
[2021-08-05] MEDS: PANTOPRAZOLE 40MG VIAL (C9113 PER 1) IV SCH ×2 (08:58→21:04)
[2021-08-05] MEDS: FUROSEMIDE 20MG/2ML VIAL (J1940) IV SCH (08:59)
[2021-08-05] MEDS: FILGRASTIM 480 MCG/0.8 ML SYRINGE **SC ADMINISTRATION ONLY SC SCH (08:59)
[2021-08-05] MEDS: MEMANTINE 5MG TABLET (NAMENDA) PO SCH ×2 (08:59→21:04)
[2021-08-05] MEDS: FAMOTIDINE 20 MG TAB PO SCH (09:00)
[2021-08-05] MEDS: LACTOBACILLUS ACIDOPHILUS CAP (BACID) PO SCH ×2 (09:00→18:50)
[2021-08-05] MEDS: ATORVASTATIN 20 MG TAB PO SCH (09:00)
[2021-08-05] MEDS: MAGNESIUM OXIDE 400MG TAB (MAG-OX) PO SCH ×2 (09:00→21:04)
[2021-08-05 10:00] LABS: HEMATOCRIT 41.7 % (36.0-47.0); LYMPH # 0.1 10^3/uL (1.5-5.0); LYMPH % 6.7 % (24.0-44.0); MEAN CORPUSCULAR HEMOGLOBIN 29.3 pg (27.0-33.0); MEAN CORPUSCULAR HGB CONC 33.6 g/dl (32.0-36.5); MEAN CORPUSCULAR VOLUME 87.2 fl (80.0-96.0); MONO # 0.2 10^3/uL (0.0-0.8); MONO % 10.7 % (2.0-8.0); NEUTROPHILS % 63.1 % (36.0-66.0); RED BLOOD COUNT 4.78 10^6/uL (4.00-5.40); WHITE BLOOD COUNT 1.5 10^3/uL (4.0-10.0)
[2021-08-05 10:01] LABS: NEUTROPHILS # 0.9 10^3/uL (1.5-8.5); PLATELET COUNT, AUTOMATED 19 10^3/uL (150-450)
[2021-08-05 10:32] LABS: BLOOD UREA NITROGEN 17 MG/DL (7-18); CARBON DIOXIDE LEVEL 35 MEQ/L (21-32); CHLORIDE LEVEL 94 MEQ/L (98-107); GLOMERULAR FILTRATION RATE > 60.0 (>45); GLUCOSE, FASTING 157 MG/DL (70-100); SODIUM LEVEL 132 MEQ/L (136-145)
[2021-08-05 10:33] LABS: CALCIUM LEVEL 7.5 MG/DL (8.8-10.2); MAGNESIUM LEVEL 1.6 MG/DL (1.8-2.4)
[2021-08-05] MEDS: NS 1,000 ML IV SCH ×2 (12:11→23:53)
[2021-08-05] MEDS: POTASSIUM CHLORIDE 10MEQ SR TABLET PO SCH ×2 (12:11→21:05)
[2021-08-05 15:35] VITALS: BP 129/65
[2021-08-05 16:24] LABS: HEMATOCRIT 40.2 % (36.0-47.0); HEMOGLOBIN 13.6 g/dl (12.0-15.5); MEAN CORPUSCULAR HEMOGLOBIN 29.6 pg (27.0-33.0); MEAN CORPUSCULAR HGB CONC 33.8 g/dl (32.0-36.5); MEAN CORPUSCULAR VOLUME 87.6 fl (80.0-96.0); RED BLOOD COUNT 4.59 10^6/uL (4.00-5.40); WHITE BLOOD COUNT 1.8 10^3/uL (4.0-10.0)
[2021-08-05 16:25] LABS: PLATELET COUNT, AUTOMATED 14 10^3/uL (150-450)
[2021-08-05 17:00] LABS: ATYPICAL LYMPH 12 % (0-5); BLAST CELLS 2 % (0-0); LYMPHOCYTES 8 % (16-44); MONOCYTES 10 % (0-5); NEUTROPHILS 31 % (28-66)
[2021-08-05 17:01] LABS: PLATELET ESTIMATE MARKED DECREASE (NORMAL)
[2021-08-05] MEDS: cefTRIAXone SOD 2 GM in D5W MINI-BAG PLUS 50 ML IV SCH (18:51)
--- NOTE | 2021-08-05 20:41 | IPNPDOC ---
Date Seen The patient was seen on 08/05/21. Progress Note Subjective: -Appetite improving further -ANC improved to 1, decreased neupogen dosing. -No acute events overnight. -Denies palpitations, chest pain, SOB, fevers, chills, n/v/d. Objective: PE: VITALS: see below CONSTITUTIONAL: AAOx3, resting in bed, more conversant EYES: PERRLA, EOM intact, pale conjunctiva HENT, MOUTH: Normocephalic, atraumatic, moist mucous membranes, alopecia, cushingoid face NECK: SUPPLE, no JVD, no lymphadenopathy, no carotid bruit CV: RRR, S1S2 normal, no murmurs/rubs/gallops RESPIRATORY: Clear to auscultation bilaterally, no rales/rhonchi/wheezes GI: BS positive in 4 quadrants, soft, nondistended, nontender, no rebound or guarding, no organomegaly MUSCULOSKELETAL: Normal ROM. No cyanosis, clubbing, swelling, joint deformity, extremity edema INTEGUMENTARY: pale skin, poor skin turgor, intact, no rashes, no lesions, no erythema NEUROLOGIC: Cranial Nerves II-XII are intact, no focal deficits LABORATORY DATA: Reviewed Please see below IMAGING: Echocardiogram 07/30/21: Underlying sinus tachycardia without intraventricular conduction disturbance with bout of paroxysmal atrial fibrillation and rate up to 140-150 BMP. This subsequently converted back to sinus rhythm. M-mode and 2-dimensional echocardiography was performed with pulse, continuous wave, color flow, and tissue Doppler studies. All Doppler measurements above were made while the patient was in sinus rhythm. Normal left ventricular size and wall thickness and wall motion. Mildly dilated left atrium with grade 1 LV diastolic dysfunction and currently elevated estimated mean left atrial pressure. Normal right heart chamber sizes and motion with estimated pulmonary arterial pressure mildly increased. Inferior vena cava was upper limits of normal size with adequate respiratory collapse, in keeping with central venous pressure of approximately 10 mmHg. Normal aortic dimensions. Mild aortic valvular sclerosis without stenosis and very mild insufficiency. Normal-appearing mitral valvular apparatus with no more than trace insufficiency. Normal-appearing tricuspid valve with mild insufficiency. No apparent intracardiac mass or pericardial effusion but fairly large left pleural effusion. CXR: Ill-defined areas of opacity involving the left hemithorax. CTA chest: 1. No evidence of acute, central pulmonary embolus. Peripheral pulmonary arterial evaluation is limited by cardiac and respiratory motion artifact. 2. Small left pleural effusion, with areas of left lung bronchiectasis and possible infiltrates or scarring at the left lung base. No active pulmonary edema. The parenchymal changes in the left lung are less severe compared with the scan from July 2020 suggesting a favorable response to treatment CT abd/pelvis: 1. Findings are suggestive of inflammatory or infectious colitis, new since the CT from 1 month ago. This predominantly involves the ascending and transverse colon but has some lim colonic involvement 2. Multiple low-density hepatic lesions which may represent cysts but are of indeterminate density and could be solid MICRO: Blood cultures, resp panel, GI panel, legionella neg ASSESSMENT: 60-year-old W with small cell lung carcinoma with brain , liver and lung metastasis recently on topotecan who follows with Dr. Rodriguez, who presented to [facility] emergency room with the chief complaint of increased weakness and was admitted with chemo induced profound pancytopenia and colitis with bloody diarrhea with +SIRS criteria c/f sepsis with course c/b Afib and sometimes flutter with RVR. PLAN: Pancytopenia (anemia, leukopenia, thrombocytopenia) 2/2 to tocotecan -Stable H/H with PLTs and WBC improving -ANC increased to 1 today -Decreased neupogen to daily per onc. Continue until patient's ANC > 1500 -Daily CBC -Spoke with Dr. Paulson, hematology/oncology, refer to note GI bleed likely 2/2 to colitis -GI bleeding stopped, with stool now brown, monitorig closely -s/p 8 units PRBC, 13 leukoreduced irradiated PLTs (including 2 more pools this AM), 4 FFP, Vit K SQ. Goal Hgb >8, platelets >20 per prior heme/onc note (Dr. Rodriguez) -Will likely need colonoscopy as o/p in 4-6 weeks after treatment -Daily CBC -Avoid AC for now Paroxysmal Afib, flutter w/ RVR: has a history paroxysmal afib -Currently NSR, rate controlled -Echo above -telemetry -daily mag and K check and repletion -continue metop 50Q6H, no AC given profound thrombocytopenia -Dr. 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 Most recently took oral topotecan for 5 days approx 2 weeks prior to this admission -Per last office note on 07/21/2021, it was discussed that chemotherapy may not be helping her cancer and that they may need to start planning for palliative care or even hospice. -Heme/onc onboard -Now DNR/DNI, updated, MOLST signed and in chart GERD -PPI IV Chronic pain secondary to malignancy -c/w home pain medications Graves Disease with hypothyroid conversion s/p ablation -C/w levothyroxine Hypokalemia -check BMP daily and repleted to K>3.5 Hypomagnesemia: -check mag daily and repleted to Mg>2 DVT pxx -SCDs, teds DISPOSITION: Admitted under acute inpatient status. Heme/onc consulted and Dr. Paulson has seen. Cleared by PT to return home when medically improved. DNR/DNI VS, I&O, 24H, [facility] Vital Signs/I&O Vital Signs Date Time Temp Pulse Resp B/P (MAP) Pulse Ox O2 Delivery O2 Flow Rate FiO2 08/05/21 18:52 95 127/67 08/05/21 15:35 99.5 16 92 Room Air 08/03/21 04:00 2.0 08/01/21 18:04 94 I&O- Last 24 Hours up to 6 AM 08/05/21 06:00 Intake Total 2062 ml Output Total 425 ml Balance 1637 ml Laboratory Data 24H LABS Laboratory Tests 2 08/05/21 09:46: Immature Granulocyte % (Auto) 19.5H, Neutrophils (%) (Auto) 63.1, Lymphocytes (%) (Auto) 6.7L, Monocytes (%) (Auto) 10.7H, Eosinophils (%) (Auto) 0.0, Basophils (%) (Auto) 0.0, Neutrophils # (Auto) 0.9L, Lymphocytes # (Auto) 0.1L, Monocytes # (Auto) 0.2, Eosinophils # (Auto) 0.0, Basophils # (Auto) 0.0, Nucleated Red Blood Cells % (auto) 0.0, Immature Platelet Fraction 6.3, Anion Gap 3L, Glomerular Filtration Rate > 60.0, Calcium Level 7.5L, Magnesium Level 1.6L 08/05/21 16:10: Immature Granulocyte % (Auto) , Neutrophils (%) (Auto) , Nucleated Red Blood Cells % (auto) 0.0, Neutrophils 31, Band Neutrophils 37H, Lymphocytes (Manual) 8L, Monocytes (Manual) 10H, Blastocytes 2H, Atypical Lymphocytes 12H, Platelet Estimate MARKED DECREASE CBC/BMP Laboratory Tests 08/05/21 09:46 08/05/21 16:10 Microbiology Microbiology 07/27/21 Gastrointestinal Tract Panel (PCR) - Final, Complete 07/26/21 Respiratory Virus Panel (PCR) ([facility]SE[facility]A) - Final, Complete 07/26/21 Blood Culture - Final, Complete NO GROWTH AFTER 5 DAYS 07/26/21 Blood Culture - Final, Complete NO GROWTH AFTER 5 DAYS Aidee Connell MD Aug 05, 2021 20:40
[2021-08-05 22:00] VITALS: BP 124/68
[2021-08-06] MEDS: METOPROLOL TART 50 MG TAB PO SCH ×3 (05:38→18:10)
[2021-08-06] MEDS: LEVOTHYROXINE 88MCG TABLET (0.088 MG) PO SCH (05:38)
[2021-08-06 06:00] VITALS: BP 127/69
[2021-08-06 08:07] LABS: BASO # 0.1 10^3/uL (0.0-0.2); BASO % 2.6 % (0.0-1.0); HEMATOCRIT 39.1 % (36.0-47.0); LYMPH # 0.2 10^3/uL (1.5-5.0); LYMPH % 7.1 % (24.0-44.0); MEAN CORPUSCULAR HEMOGLOBIN 29.3 pg (27.0-33.0); MEAN CORPUSCULAR HGB CONC 33.2 g/dl (32.0-36.5); MEAN CORPUSCULAR VOLUME 88.3 fl (80.0-96.0); MONO # 0.2 10^3/uL (0.0-0.8); MONO % 8.6 % (2.0-8.0); NEUTROPHILS # 1.9 10^3/uL (1.5-8.5); NEUTROPHILS % 69.1 % (36.0-66.0); RED BLOOD COUNT 4.43 10^6/uL (4.00-5.40); WHITE BLOOD COUNT 2.7 10^3/uL (4.0-10.0)
[2021-08-06 08:10] LABS: PLATELET COUNT, AUTOMATED 11 10^3/uL (150-450)
[2021-08-06 08:35] LABS: BLOOD UREA NITROGEN 14 MG/DL (7-18); CALCIUM LEVEL 7.5 MG/DL (8.8-10.2); CARBON DIOXIDE LEVEL 32 MEQ/L (21-32); CHLORIDE LEVEL 100 MEQ/L (98-107); CREATININE FOR GFR 0.58 MG/DL (0.55-1.30); GLOMERULAR FILTRATION RATE > 60.0 (>45); GLUCOSE, FASTING 105 MG/DL (70-100); MAGNESIUM LEVEL 1.6 MG/DL (1.8-2.4); SODIUM LEVEL 136 MEQ/L (136-145)
[2021-08-06] MEDS ORDERED: FILGRASTIM 480 MCG/0.8 ML SYRINGE **SC ADMINISTRATION ONLY SC SCH (09:00)
[2021-08-06] MEDS: FENTANYL REMOVAL DOCUMENTATION MISC XX SCH (09:00)
[2021-08-06] MEDS: ATORVASTATIN 20 MG TAB PO SCH (09:20)
[2021-08-06] MEDS: MEMANTINE 5MG TABLET (NAMENDA) PO SCH ×2 (09:20→20:35)
[2021-08-06] MEDS: FAMOTIDINE 20 MG TAB PO SCH (09:20)
[2021-08-06] MEDS: MAGNESIUM OXIDE 400MG TAB (MAG-OX) PO SCH ×2 (09:20→20:36)
[2021-08-06] MEDS: PANTOPRAZOLE 40MG VIAL (C9113 PER 1) IV SCH ×2 (09:20→20:36)
[2021-08-06] MEDS: LACTOBACILLUS ACIDOPHILUS CAP (BACID) PO SCH ×2 (09:20→18:43)
[2021-08-06] MEDS: FUROSEMIDE 20MG/2ML VIAL (J1940) IV SCH (09:21)
[2021-08-06] MEDS ORDERED: MAG SULF 1GM/100ML (MAG RUN) 1 GM in IV 1 EA IV ONE (10:00)
[2021-08-06] MEDS: POTASSIUM CHLORIDE 10MEQ SR TABLET PO SCH ×2 (10:44→20:36)
[2021-08-06 14:00] VITALS: BP 127/72
[2021-08-06] MEDS: NS 1,000 ML IV SCH (14:00)
[2021-08-06] MEDS: ACETAMINOPHEN TAB 650MG DOSE (2X325MG) PO PRN (16:08)
--- NOTE | 2021-08-06 19:17 | IPNPDOC ---
Date Seen The patient was seen on 08/06/21. Progress Note Subjective: -No acute events over night -Denies palpitations, chest pain, SOB, fevers, chills, n/v/d. Objective: PE: VITALS: see below CONSTITUTIONAL: AAOx3, resting in bed, more conversant EYES: PERRLA, EOM intact, pale conjunctiva HENT, MOUTH: Normocephalic, atraumatic, moist mucous membranes, alopecia, cushingoid face NECK: SUPPLE, no JVD, no lymphadenopathy, no carotid bruit CV: RRR, S1S2 normal, no murmurs/rubs/gallops RESPIRATORY: Clear to auscultation bilaterally, no rales/rhonchi/wheezes GI: BS positive in 4 quadrants, soft, nondistended, nontender, no rebound or guarding, no organomegaly MUSCULOSKELETAL: Normal ROM. No cyanosis, clubbing, swelling, joint deformity, extremity edema INTEGUMENTARY: pale skin, poor skin turgor, intact, no rashes, no lesions, no erythema NEUROLOGIC: Cranial Nerves II-XII are intact, no focal deficits LABORATORY DATA: Reviewed Please see below IMAGING: Echocardiogram 07/30/21: Underlying sinus tachycardia without intraventricular conduction disturbance with bout of paroxysmal atrial fibrillation and rate up to 140-150 BMP. This subsequently converted back to sinus rhythm. M-mode and 2-dimensional echocardiography was performed with pulse, continuous wave, color flow, and tissue Doppler studies. All Doppler measurements above were made while the patient was in sinus rhythm. Normal left ventricular size and wall thickness and wall motion. Mildly dilated left atrium with grade 1 LV diastolic dysfunction and currently elevated estimated mean left atrial pressure. Normal right heart chamber sizes and motion with estimated pulmonary arterial pressure mildly increased. Inferior vena cava was upper limits of normal size with adequate respiratory collapse, in keeping with central venous pressure of approximately 10 mmHg. Normal aortic dimensions. Mild aortic valvular sclerosis without stenosis and very mild insufficiency. Normal-appearing mitral valvular apparatus with no more than trace insufficiency. Normal-appearing tricuspid valve with mild insufficiency. No apparent intracardiac mass or pericardial effusion but fairly large left pleural effusion. CXR: Ill-defined areas of opacity involving the left hemithorax. CTA chest: 1. No evidence of acute, central pulmonary embolus. Peripheral pulmonary arterial evaluation is limited by cardiac and respiratory motion artifact. 2. Small left pleural effusion, with areas of left lung bronchiectasis and possible infiltrates or scarring at the left lung base. No active pulmonary edema. The parenchymal changes in the left lung are less severe compared with the scan from July 2020 suggesting a favorable response to treatment CT abd/pelvis: 1. Findings are suggestive of inflammatory or infectious colitis, new since the CT from 1 month ago. This predominantly involves the ascending and transverse colon but has some lim colonic involvement 2. Multiple low-density hepatic lesions which may represent cysts but are of indeterminate density and could be solid MICRO: Blood cultures, resp panel, GI panel, legionella neg ASSESSMENT: 60-year-old W with small cell lung carcinoma with brain , liver and lung metastasis recently on topotecan who follows with Dr. Rodriguez, who presented to [facility] emergency room with the chief complaint of increased weakness and was admitted with chemo induced profound pancytopenia and colitis with bloody diarrh ea with +SIRS criteria c/f sepsis with course c/b Afib and sometimes flutter with RVR. PLAN: Pancytopenia (anemia, leukopenia, thrombocytopenia) 2/2 to tocotecan -Stable H/H with improving WBC. PLts lower today at 11 -ANC increased to 1, calculate again 08/07/21 -Decreased neupogen to daily per onc. Continue until patient's ANC > 1500 -CBC -Spoke with Dr. Paulson, hematology/oncology, goal ANC > 1.5, transfuse PLTs < 10 now. Goal Hgb >8, if less transfuse GI bleed likely 2/2 to colitis -GI bleeding stopped, with stool now brown, monitoring closely -s/p 8 units PRBC, 13 leukoreduced irradiated PLTs (including 2 more pools this AM), 4 FFP, Vit K SQ. -Will likely need colonoscopy as o/p in 4-6 weeks after treatment -Daily CBC -Avoid AC for now Paroxysmal Afib, flutter w/ RVR: has a history paroxysmal afib -Currently NSR, rate controlled -Echo above -telemetry -daily mag and K check and repletion -continue metop 50Q6H, no AC given profound thrombocytopenia -Dr. 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 Most recently took oral topotecan for 5 days approx 2 weeks prior to this admission -Per last office note on 07/21/2021, it was discussed that chemotherapy may not be helping her cancer and that they may need to start planning for palliative care or even hospice. -Heme/onc onboard -Now DNR/DNI, updated, MOLST signed and in chart GERD -PPI IV Chronic pain secondary to malignancy -c/w home pain medications Graves Disease with hypothyroid conversion s/p ablation -C/w levothyroxine Hypokalemia -check BMP daily and repleted to K>3.5 Hypomagnesemia: -check mag daily and repleted to Mg>2 DVT pxx -SCDs, teds DISPOSITION: Admitted under acute inpatient status. Heme/onc consulted and Dr. Paulson has seen. Cleared by PT to return home when medically improved. DNR/DNI VS, I&O, 24H, [facility] Vital Signs/I&O Vital Signs Date Time Temp Pulse Resp B/P (MAP) Pulse Ox O2 Delivery O2 Flow Rate FiO2 08/06/21 18:10 97.8 08/06/21 18:10 94 136/77 08/06/21 14:00 14 94 Room Air 08/03/21 04:00 2.0 08/01/21 18:04 94 I&O- Last 24 Hours up to 6 AM 08/06/21 06:00 Intake Total 2170 ml Output Total 450 ml Balance 1720 ml Laboratory Data 24H LABS Laboratory Tests 2 08/06/21 07:53: Immature Granulocyte % (Auto) 12.6H, Neutrophils (%) (Auto) 69.1H, Lymphocytes (%) (Auto) 7.1L, Monocytes (%) (Auto) 8.6H, Eosinophils (%) (Auto) 0.0, Basoph ils (%) (Auto) 2.6H, Neutrophils # (Auto) 1.9, Lymphocytes # (Auto) 0.2L, Monocytes # (Auto) 0.2, Eosinophils # (Auto) 0.0, Basophils # (Auto) 0.1, Nucleated Red Blood Cells % (auto) 0.0, Anion Gap 4L, Glomerular Filtration Rate > 60.0, Calcium Level 7.5L, Magnesium Level 1.6L CBC/BMP Laboratory Tests 08/06/21 07:53 Microbiology Microbiology 07/27/21 Gastrointestinal Tract Panel (PCR) - Final, Complete Aidee Connell MD Aug 06, 2021 19:17
[2021-08-06 19:53] VITALS: BP 114/68
[2021-08-07] MEDS: METOPROLOL TART 50 MG TAB PO SCH ×4 (00:33→17:16)
[2021-08-07] MEDS: NS 1,000 ML IV SCH (03:27)
[2021-08-07] MEDS: LEVOTHYROXINE 88MCG TABLET (0.088 MG) PO SCH (05:34)
[2021-08-07 05:45] VITALS: BP 126/70
[2021-08-07 06:33] LABS: HEMATOCRIT 39.1 % (36.0-47.0); HEMOGLOBIN 12.9 g/dl (12.0-15.5); MEAN CORPUSCULAR HEMOGLOBIN 29.1 pg (27.0-33.0); MEAN CORPUSCULAR VOLUME 88.3 fl (80.0-96.0); RED BLOOD COUNT 4.43 10^6/uL (4.00-5.40); WHITE BLOOD COUNT 4.6 10^3/uL (4.0-10.0)
[2021-08-07 06:37] LABS: PLATELET COUNT, AUTOMATED 14 10^3/uL (150-450)
[2021-08-07 06:59] LABS: ALBUMIN 1.3 GM/DL (3.2-5.2); ALT/SGPT 20 U/L (12-78); BILIRUBIN,TOTAL 0.8 MG/DL (0.2-1.0); BLOOD UREA NITROGEN 12 MG/DL (7-18); CALCIUM LEVEL 7.5 MG/DL (8.8-10.2); CARBON DIOXIDE LEVEL 29 MEQ/L (21-32); CHLORIDE LEVEL 102 MEQ/L (98-107); CREATININE FOR GFR 0.58 MG/DL (0.55-1.30); GLOMERULAR FILTRATION RATE > 60.0 (>45); GLUCOSE, FASTING 114 MG/DL (70-100); MAGNESIUM LEVEL 1.6 MG/DL (1.8-2.4); POTASSIUM SERUM 3.2 MEQ/L (3.5-5.1); SODIUM LEVEL 138 MEQ/L (136-145); TOTAL PROTEIN 4.5 GM/DL (6.4-8.2)
[2021-08-07 07:07] LABS: ATYPICAL LYMPH 6 % (0-5); LYMPHOCYTES 3 % (16-44); MONOCYTES 10 % (0-5); NEUTROPHILS 74 % (28-66); PLATELET ESTIMATE DECREASED (NORMAL)
[2021-08-07] MEDS ORDERED: MAGNESIUM OXIDE 400MG TAB (MAG-OX) PO SCH (09:00)
[2021-08-07] MEDS: FAMOTIDINE 20 MG TAB PO SCH (09:19)
[2021-08-07] MEDS: LACTOBACILLUS ACIDOPHILUS CAP (BACID) PO SCH ×2 (09:19→17:15)
[2021-08-07] MEDS: MEMANTINE 5MG TABLET (NAMENDA) PO SCH ×2 (09:19→21:45)
[2021-08-07] MEDS: POTASSIUM CHLORIDE 10MEQ SR TABLET PO SCH ×2 (09:20→21:45)
[2021-08-07] MEDS: FUROSEMIDE 20MG/2ML VIAL (J1940) IV SCH (09:20)
[2021-08-07] MEDS: ATORVASTATIN 20 MG TAB PO SCH (09:20)
[2021-08-07] MEDS: PANTOPRAZOLE 40MG VIAL (C9113 PER 1) IV SCH ×2 (09:20→21:45)
--- NOTE | 2021-08-07 13:49 | IPNPDOC ---
Date Seen The patient was seen on 08/07/21. Progress Note Subjective: -Poor PO intake with no improvement over several days. Nutritional assessment ordered. -Diarrhea x 3, c. diff ordered also -Denies palpitations, chest pain, SOB, fevers, chills, n/v/d. Objective: PE: VITALS: see below CONSTITUTIONAL: AAOx3, ill appearing female, resting in bed EYES: PERRLA, EOM intact, pale conjunctiva HENT, MOUTH: Normocephalic, atraumatic, moist mucous membranes, alopecia, cushingoid face NECK: SUPPLE, no JVD, no lymphadenopathy, no carotid bruit CV: RRR, S1S2 normal, no murmurs/rubs/gallops RESPIRATORY: Clear to auscultation bilaterally, no rales/rhonchi/wheezes GI: BS positive in 4 quadrants, soft, nondistended, nontender, no rebound or guarding, no organomegaly MUSCULOSKELETAL: Normal ROM. No cyanosis, clubbing, swelling, joint deformity, extremity edema INTEGUMENTARY: pale skin, poor skin turgor, intact, no rashes, no lesions, no erythema NEUROLOGIC: Cranial Nerves II-XII are intact, no focal deficits LABORATORY DATA: Reviewed Please see below IMAGING: Echocardiogram 07/30/21: Underlying sinus tachycardia without intraventricular conduction disturbance with bout of paroxysmal atrial fibrillation and rate up to 140-150 BMP. This subsequently converted back to sinus rhythm. M-mode and 2-dimensional echocardiography was performed with pulse, continuous wave, color flow, and tissue Doppler studies. All Doppler measurements above were made while the patient was in sinus rhythm. Normal left ventricular size and wall thickness and wall motion. Mildly dilated left atrium with grade 1 LV diastolic dysfunction and currently elevated estimated mean left atrial pressure. Normal right heart chamber sizes and motion with estimated pulmonary arterial pressure mildly increased. Inferior vena cava was upper limits of normal size with adequate respiratory collapse, in keeping with central venous pressure of approximately 10 mmHg. Normal aortic dimensions. Mild aortic valvular sclerosis without stenosis and very mild insufficiency. Normal-appearing mitral valvular apparatus with no more than trace insufficiency. Normal-appearing tricuspid valve with mild insufficiency. No apparent intracardiac mass or pericardial effusion but fairly large left pleural effusion. CXR: Ill-defined areas of opacity involving the left hemithorax. CTA chest: 1. No evidence of acute, central pulmonary embolus. Peripheral pulmonary arterial evaluation is limited by cardiac and respiratory motion artifact. 2. Small left pleural effusion, with areas of left lung bronchiectasis and possible infiltrates or scarring at the left lung base. No active pulmonary edema. The parenchymal changes in the left lung are less severe compared with the scan from July 2020 suggesting a favorable response to treatment CT abd/pelvis: 1. Findings are suggestive of inflammatory or infectious colitis, new since the CT from 1 month ago. This predominantly involves the ascending and transverse colon but has some lim colonic involvement 2. Multiple low-density hepatic lesions which may represent cysts but are of indeterminate density and could be solid MICRO: Blood cultures, resp panel, GI panel, legionella neg ASSESSMENT: 60-year-old W with small cell lung carcinoma with brain , liver and lung metastasis recently on topotecan who follows with Dr. Rodriguez, who presented to [facility] emergency room with the chief complaint of increased weakness and was admitted with chemo induced profound pancytopenia and colitis with bloody diarr hea with +SIRS criteria c/f sepsis with course c/b Afib and sometimes flutter with RVR. PLAN: Pancytopenia (anemia, leukopenia, thrombocytopenia) 2/2 to tocotecan -Stable H/H with improving WBC. PLts14 -ANC increased to >1.5, stopped neupogen. -CBC -Spoke with Dr. Paulson, hematology/oncology, goal ANC > 1.5, transfuse PLTs if bleeding <50 and bleeding OR PLTs< 10 . Goal Hgb >8, if less transfuse Poor PO intake, worsening with acute and chronic disease -picked up then for the past several days has been gradually declining -Nutritional assessment ordered -Switching to D5 NS for now Diarrhea with hx of recent colitis , possibly 2/2 to magnesium oxide -F/u c. diff today ->3 diarrhea/BMs over the past 24 hours -IF c. diff neg, consider loperamide -Stop mag ox supplement for now -Replace electrolytes PRN GI bleed likely 2/2 to colitis -GI bleeding stopped, with stool now brown -s/p 8 units PRBC, 13 leukoreduced irradiated PLTs (including 2 more pools this AM), 4 FFP, Vit K SQ. -Will likely need colonoscopy as o/p in 4-6 weeks after treatment -Daily CBC -Avoid AC for now Paroxysmal Afib, flutter w/ RVR: has a history paroxysmal afib -Currently NSR, rate controlled -Echo above -telemetry -daily mag and K check and repletion -continue metop 50Q6H, no AC given profound thrombocytopenia -Dr. 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 Most recently took oral topotecan for 5 days approx 2 weeks prior to this admission -Per last office note on 07/21/2021, it was discussed that chemotherapy may not be helping her cancer and that they may need to start planning for palliative care or even hospice. -Heme/onc onboard -Now DNR/DNI, updated, MOLST signed and in chart GERD -PPI IV Chronic pain secondary to malignancy -c/w home pain medications Graves Disease with hypothyroid conversion s/p ablation -C/w levothyroxine Hypokalemia -30 mg PO BID -check BMP daily and repleted to K>3.5 Hypomagnesemia: -Magnesium increased to TID but later stopped today due to diarrhea -check mag daily and repleted to Mg>2 DVT pxx -SCDs, teds DISPOSITION: Admitted under acute inpatient status. Heme/onc consulted and Dr. Paulson has seen. Very weak, decline compared to last PT assessment. Nutritional assessment ordered. DNR/DNI VS, I&O, 24H, [facility] Vital Signs/I&O Vital Signs Date Time Temp Pulse Resp B/P (MAP) Pulse Ox O2 Delivery O2 Flow Rate FiO2 08/07/21 11:46 92 124/74 08/07/21 08:05 97.9 08/07/21 05:45 20 95 Room Air 08/03/21 04:00 2.0 08/01/21 18:04 94 I&O- Last 24 Hours up to 6 AM 08/07/21 05:59 Intake Total 2850 ml Output Total 0 ml Balance 2850 ml Laboratory Data 24H LABS Laboratory Tests 2 08/07/21 06:13: Immature Granulocyte % (Auto) , Neutrophils (%) (Auto) , Nucleated Red Blood Cells % (auto) 0.0, Neutrophils 74H, Band Neutrophils 7, Lymphocytes (Manual) 3L, Monocytes (Manual) 10H, Atypical Lymphocytes 6H, Red Blood Cell Morphology NORMAL, Platelet Estimate DECREASED, Immature Platelet Fraction 13.6H, Anion Gap 7L, Glomerular Filtration Rate > 60.0, Calcium Level 7.5L, Magnesium Level 1.6L, Total Bilirubin 0.8, Aspartate Amino Transf (AST/SGOT) 16, Alanine Aminotransferase (ALT/SGPT) 20, Alkaline Phosphatase 171H, Total Protein 4.5L, Albumin 1.3L, Albumin/Globulin Ratio 0.4L CBC/BMP Laboratory Tests 08/07/21 06:13 Aidee Connell MD Aug 07, 2021 13:49
[2021-08-07] MEDS: D5W/0.9% SODIUM CHLORIDE 1,000 ML IV SCH (13:58)
[2021-08-07 14:00] VITALS: BP 129/74
[2021-08-07] MEDS: ACETAMINOPHEN TAB 650MG DOSE (2X325MG) PO PRN (14:39)
[2021-08-07 22:00] VITALS: BP 125/65
[2021-08-08] MEDS: METOPROLOL TART 50 MG TAB PO SCH ×4 (01:07→17:31)
[2021-08-08] MEDS: D5W/0.9% SODIUM CHLORIDE 1,000 ML IV SCH ×2 (01:19→16:25)
[2021-08-08 06:00] VITALS: BP 135/69
[2021-08-08] MEDS: LEVOTHYROXINE 88MCG TABLET (0.088 MG) PO SCH (06:28)
[2021-08-08 07:18] LABS: HEMATOCRIT 38.2 % (36.0-47.0); HEMOGLOBIN 12.8 g/dl (12.0-15.5); MEAN CORPUSCULAR HEMOGLOBIN 29.5 pg (27.0-33.0); MEAN CORPUSCULAR HGB CONC 33.5 g/dl (32.0-36.5); RED BLOOD COUNT 4.34 10^6/uL (4.00-5.40); WHITE BLOOD COUNT 6.3 10^3/uL (4.0-10.0)
[2021-08-08 07:21] LABS: PLATELET COUNT, AUTOMATED 18 10^3/uL (150-450)
[2021-08-08 07:46] LABS: ALBUMIN 1.3 GM/DL (3.2-5.2); ALT/SGPT 25 U/L (12-78); BILIRUBIN,TOTAL 0.7 MG/DL (0.2-1.0); BLOOD UREA NITROGEN 8 MG/DL (7-18); CALCIUM LEVEL 7.4 MG/DL (8.8-10.2); CARBON DIOXIDE LEVEL 28 MEQ/L (21-32); CHLORIDE LEVEL 104 MEQ/L (98-107); CREATININE FOR GFR 0.62 MG/DL (0.55-1.30); GLOMERULAR FILTRATION RATE > 60.0 (>45); GLUCOSE, FASTING 114 MG/DL (70-100); POTASSIUM SERUM 3.4 MEQ/L (3.5-5.1); SODIUM LEVEL 139 MEQ/L (136-145); TOTAL PROTEIN 4.5 GM/DL (6.4-8.2)
[2021-08-08] MEDS: FENTANYL REMOVAL DOCUMENTATION MISC XX SCH (09:30)
[2021-08-08] MEDS: PANTOPRAZOLE 40MG VIAL (C9113 PER 1) IV SCH ×2 (09:32→20:24)
[2021-08-08] MEDS: FAMOTIDINE 20 MG TAB PO SCH (09:32)
[2021-08-08] MEDS: fentaNYL 25 MCG/HR PATCH TOP SCH (09:32)
[2021-08-08] MEDS: MEMANTINE 5MG TABLET (NAMENDA) PO SCH ×2 (09:32→20:24)
[2021-08-08] MEDS: LACTOBACILLUS ACIDOPHILUS CAP (BACID) PO SCH ×2 (09:33→17:31)
[2021-08-08] MEDS: FUROSEMIDE 20MG/2ML VIAL (J1940) IV SCH (09:33)
[2021-08-08] MEDS: POTASSIUM CHLORIDE 10MEQ SR TABLET PO SCH ×2 (09:33→20:25)
[2021-08-08] MEDS: ATORVASTATIN 20 MG TAB PO SCH (09:33)
[2021-08-08] MEDS: ACETAMINOPHEN TAB 650MG DOSE (2X325MG) PO PRN ×2 (09:34→20:26)
[2021-08-08] MEDS ORDERED: POTASSIUM CHLORIDE 10MEQ SR TABLET PO ONE (11:00)
[2021-08-08 14:00] VITALS: BP 102/56
--- NOTE | 2021-08-08 15:08 | IPNPDOC ---
Date Seen The patient was seen on 08/08/21. Progress Note Subjective: -Nutritional assessment to be done after weekend. She says she has difficulty swallowing pills. Discussed feeding tube/artificial means of nutrition with patient today and she will d/w her about whether or not she will want that. -Only 1 bowel movement today -Weak but denies chest pain, SOB, fevers, chills, n/v/d. Objective: PE: VITALS: see below CONSTITUTIONAL: AAOx3, ill appearing female, resting in bed EYES: PERRLA, EOM intact, pale conjunctiva HENT, MOUTH: Normocephalic, atraumatic, moist mucous membranes, alopecia, cushingoid face NECK: SUPPLE, no JVD, no lymphadenopathy, no carotid bruit CV: RRR, S1S2 normal, no murmurs/rubs/gallops RESPIRATORY: Clear to auscultation bilaterally, no rales/rhonchi/wheezes GI: BS positive in 4 quadrants, soft, nondistended, nontender, no rebound or guarding, no organomegaly MUSCULOSKELETAL: Normal ROM. No cyanosis, clubbing, swelling, joint deformity, extremity edema INTEGUMENTARY: pale skin, poor skin turgor, intact, no rashes, no lesions, no erythema NEUROLOGIC: Cranial Nerves II-XII are intact, no focal deficits LABORATORY DATA: Reviewed Please see below IMAGING: Echocardiogram 07/30/21: Underlying sinus tachycardia without intraventricular conduction disturbance with bout of paroxysmal atrial fibrillation and rate up to 140-150 BMP. This subsequently converted back to sinus rhythm. M-mode and 2-dimensional echocardiography was performed with pulse, continuous wave, color flow, and tissue Doppler studies. All Doppler measurements above were made while the patient was in sinus rhythm. Normal left ventricular size and wall thickness and wall motion. Mildly dilated left atrium with grade 1 LV diastolic dysfunction and currently elevated estimated mean left atrial pressure. Normal right heart chamber sizes and motion with estimated pulmonary arterial pressure mildly increased. Inferior vena cava was upper limits of normal size with adequate respiratory collapse, in keeping with central venous pressure of approximately 10 mmHg. Normal aortic dimensions. Mild aortic valvular sclerosis without stenosis and very mild insufficiency. Normal-appearing mitral valvular apparatus with no more than trace insufficiency. Normal-appearing tricuspid valve with mild insufficiency. No apparent intracardiac mass or pericardial effusion but fairly large left pleural effusion. CXR: Ill-defined areas of opacity involving the left hemithorax. CTA chest: 1. No evidence of acute, central pulmonary embolus. Peripheral pulmonary arterial evaluation is limited by cardiac and respiratory motion artifact. 2. Small left pleural effusion, with areas of left lung bronchiectasis and possible infiltrates or scarring at the left lung base. No active pulmonary edema. The parenchymal changes in the left lung are less severe compared with the scan from July 2020 suggesting a favorable response to treatment CT abd/pelvis: 1. Findings are suggestive of inflammatory or infectious colitis, new since the CT from 1 month ago. This predominantly involves the ascending and transverse colon but has some lim colonic involvement 2. Multiple low-density hepatic lesions which may represent cysts but are of indeterminate density and could be solid MICRO: Blood cultures, resp panel, GI panel, legionella neg ASSESSMENT: 60-year-old W with small cell lung carcinoma with brain , liver and lung m etastasis recently on topotecan who follows with Dr. Rodriguez, who presented to [facility] emergency room with the chief complaint of increased weakness and was admitted with chemo induced profound pancytopenia and colitis with bloody diarrhea with +SIRS criteria c/f sepsis with course c/b Afib and sometimes flutter with RVR. PLAN: Poor PO intake, worsening with acute and chronic disease -Picked up earlier in the week but over past 48 hrs has been gradually declining -R/o dysphagia to pills and food with swallowing evaluation -Discussed feeding tube/artificial means of nutrition with patient today and she will d/w her about whether or not she will want that. -Nutritional reassessment to be done again on 08/09/21 (last done on 07/26/21). -C/w D5 NS for now Deconditioning likely 2/2 to acute and chronic disease -F/u reassessment from PT/OT on 08/09/21 Pancytopenia (anemia, leukopenia, thrombocytopenia) 2/2 to tocotecan -Stable H/H with improving WBC. PLts 18 -ANC increased to >1.5, stopped neupogen 08/07/21. -CBC -Spoke with Dr. Paulson, hematology/oncology, goal ANC > 1.5, transfuse PLTs if bleeding <50 and bleeding OR PLTs< 10 . Goal Hgb >8, if less transfuse Diarrhea likely 2/2 to magnesium oxide- improved -with hx of recent colitis -Loperamide PRN -Stop mag ox supplement for now -Replace electrolytes PRN GI bleed likely 2/2 to colitis -GI bleeding stopped, with stool now brown -s/p 8 units PRBC, 15 PLTs, 4 FFP, Vit K SQ. -Will likely need colonoscopy as o/p in 4-6 weeks after treatment -Daily CBC -Avoid AC for now Paroxysmal Afib, flutter w/ RVR: has a history paroxysmal afib -Currently NSR, rate controlled -Echo above -telemetry -daily mag and K check and repletion -continue metop 50Q6H, no AC given profound thrombocytopenia -Dr. 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 Most recently took oral topotecan for 5 days approx 2 weeks prior to this admission -Per last office note on 07/21/2021, it was discussed that chemotherapy may not be helping her cancer and that they may need to start planning for palliative care or even hospice. -Heme/onc onboard -Now DNR/DNI, updated, JASON signed and in chart GERD -PPI IV Chronic pain secondary to malignancy -c/w home pain medications Graves Disease with hypothyroid conversion s/p ablation -C/w levothyroxine Hypokalemia -30 mg PO BID -Given additional 40 mEq today. If still low tomorrow may want to consider 40 mEq BID dosing -check BMP daily and repleted to K>3.5 Hypomagnesemia: -Magnesium increased to TID but later stopped today due to diarrhea -check mag daily and repleted to Mg>2 DVT pxx -SCDs, teds DISPOSITION: Admitted under acute inpatient status. Heme/onc consulted and Dr. Paulson has seen. Very weak, decline compared to last PT assessment. Nutritional assessment ordered. DNR/DNI VS, I&O, 24H, Fishbone Vital Signs/I&O Vital Signs Date Time Temp Pulse Resp B/P (MAP) Pulse Ox O2 Delivery O2 Flow Rate FiO2 10/24/21 11:40 82 138/75 10/24/21 10:08 18 Room Air 08/08/21 06:00 99.0 96 08/03/21 04:00 2.0 I&O- Last 24 Hours up to 6 AM 08/08/21 06:00 Intake Total 720 ml Output Total 0 ml Balance 720 ml Laboratory Data 24H LABS Laboratory Tests 2 08/08/21 06:54: Nucleated Red Blood Cells % (auto) 0.0, Immature Platelet Fraction 10.6H, Anion Gap 7L, Glomerular Filtration Rate > 60.0, Calcium Level 7.4L, Total Bilirubin 0.7, Aspartate Amino Transf (AST/SGOT) 20, Alanine Aminotransferase (ALT/SGPT) 25, Alkaline Phosphatase 215H, Total Protein 4.5L, Albumin 1.3L, Albumin/Globulin Ratio 0.4L CBC/BMP Laboratory Tests 08/08/21 06:54 Aidee Connell MD Aug 08, 2021 15:08
[2021-08-08 22:00] VITALS: BP 138/82
[2021-08-09] MEDS: METOPROLOL TART 50 MG TAB PO SCH ×4 (00:21→17:15)
[2021-08-09] MEDS: D5W/0.9% SODIUM CHLORIDE 1,000 ML IV SCH (00:22)
[2021-08-09 06:00] VITALS: BP 136/75
[2021-08-09] MEDS: LEVOTHYROXINE 88MCG TABLET (0.088 MG) PO SCH (06:13)
[2021-08-09 07:38] LABS: HEMATOCRIT 38.5 % (36.0-47.0); HEMOGLOBIN 12.6 g/dl (12.0-15.5); MEAN CORPUSCULAR HEMOGLOBIN 29.2 pg (27.0-33.0); MEAN CORPUSCULAR HGB CONC 32.7 g/dl (32.0-36.5); MEAN CORPUSCULAR VOLUME 89.1 fl (80.0-96.0); RED BLOOD COUNT 4.32 10^6/uL (4.00-5.40); WHITE BLOOD COUNT 7.2 10^3/uL (4.0-10.0)
[2021-08-09 07:40] LABS: PLATELET COUNT, AUTOMATED 27 10^3/uL (150-450)
[2021-08-09 07:54] LABS: ALBUMIN 1.3 GM/DL (3.2-5.2); ALT/SGPT 23 U/L (12-78); BILIRUBIN,TOTAL 0.6 MG/DL (0.2-1.0); BLOOD UREA NITROGEN 7 MG/DL (7-18); CARBON DIOXIDE LEVEL 26 MEQ/L (21-32); CHLORIDE LEVEL 106 MEQ/L (98-107); CREATININE FOR GFR 0.64 MG/DL (0.55-1.30); GLOMERULAR FILTRATION RATE > 60.0 (>45); GLUCOSE, FASTING 111 MG/DL (70-100); MAGNESIUM LEVEL 1.4 MG/DL (1.8-2.4); POTASSIUM SERUM 3.8 MEQ/L (3.5-5.1); SODIUM LEVEL 138 MEQ/L (136-145); TOTAL PROTEIN 5.1 GM/DL (6.4-8.2)
[2021-08-09] MEDS ORDERED: MAG SULF 1GM/100ML (MAG RUN) 1 GM in IV 1 EA IV ONE (08:30)
[2021-08-09] MEDS: LACTOBACILLUS ACIDOPHILUS CAP (BACID) PO SCH ×2 (08:55→17:14)
[2021-08-09] MEDS: FAMOTIDINE 20 MG TAB PO SCH (08:55)
[2021-08-09] MEDS: MEMANTINE 5MG TABLET (NAMENDA) PO SCH ×2 (08:55→22:41)
[2021-08-09] MEDS: POTASSIUM CHLORIDE 10MEQ SR TABLET PO SCH ×2 (08:55→22:41)
[2021-08-09] MEDS: ATORVASTATIN 20 MG TAB PO SCH (08:55)
[2021-08-09] MEDS: PANTOPRAZOLE 40MG VIAL (C9113 PER 1) IV SCH ×2 (08:56→22:40)
[2021-08-09] MEDS: FUROSEMIDE 20MG/2ML VIAL (J1940) IV SCH (08:56)
[2021-08-09] MEDS ORDERED: ENOXAPARIN 40MG/0.4ML SYRINGE (J1650 PER 10MG) SC SCH (09:00)
[2021-08-09 10:30] LABS: INR 1.18; PARTIAL THROMBOPLASTIN TIME 37.6 SECONDS (25.9-37.0); PROTHROMBIN TIME 15.5 SECONDS (12.7-14.5)
[2021-08-09 14:00] VITALS: BP 132/68
--- NOTE | 2021-08-09 18:15 | IPNPDOC ---
Date Seen The patient was seen on 08/09/21. Progress Note Subjective: Patient states she would like to return home and not opt for artificial means of nutrition at this time. She would like to try to go home and see if her appetite picks up. She did agree to physical therapy which should be by to see her today. Swallowing evaluation ordered due to difficulty swallowing pills. There was some confusion between DNR/DNI status and [employer]MENT [employer]AIR with hospice. This was clarified at the bedside with nurse. She continues to be weak but denies chest pain, SOB, fevers, chills, n/v/d. Objective: PE: VITALS: see below CONSTITUTIONAL: AAOx3, ill appearing female, resting in bed EYES: PERRLA, EOM intact, pale conjunctiva HENT, MOUTH: Normocephalic, atraumatic, moist mucous membranes, alopecia, cushingoid face NECK: SUPPLE, no JVD, no lymphadenopathy, no carotid bruit CV: RRR, S1S2 normal, no murmurs/rubs/gallops RESPIRATORY: Clear to auscultation bilaterally, no rales/rhonchi/wheezes GI: BS positive in 4 quadrants, soft, nondistended, nontender, no rebound or guarding, no organomegaly MUSCULOSKELETAL: Normal ROM. No cyanosis, clubbing, swelling, joint deformity, extremity edema INTEGUMENTARY: pale skin, poor skin turgor, intact, no rashes, no lesions, no erythema NEUROLOGIC: Cranial Nerves II-XII are intact, no focal deficits LABORATORY DATA: Reviewed Please see below IMAGING: Echocardiogram 07/30/21: Underlying sinus tachycardia without intraventricular conduction disturbance with bout of paroxysmal atrial fibrillation and rate up to 140-150 BMP. This subsequently converted back to sinus rhythm. M-mode and 2-dimensional echocardiography was performed with pulse, continuous wave, color flow, and tissue Doppler studies. All Doppler measurements above were made while the patient was in sinus rhythm. Normal left ventricular size and wall thickness and wall motion. Mildly dilated left atrium with grade 1 LV diastolic dysfunction and currently elevated estimated mean left atrial pressure. Normal right heart chamber sizes and motion with estimated pulmonary arterial pressure mildly increased. Inferior vena cava was upper limits of normal size with adequate respiratory collapse, in keeping with central venous pressure of approximately 10 mmHg. Normal aortic dimensions. Mild aortic valvular sclerosis without stenosis and very mild insufficiency. Normal-appearing mitral valvular apparatus with no more than trace insufficiency. Normal-appearing tricuspid valve with mild insufficiency. No apparent intracardiac mass or pericardial effusion but fairly large left pleural effusion. CXR: Ill-defined areas of opacity involving the left hemithorax. CTA chest: 1. No evidence of acute, central pulmonary embolus. Peripheral pulmonary arterial evaluation is limited by cardiac and respiratory motion artifact. 2. Small left pleural effusion, with areas of left lung bronchiectasis and possible infiltrates or scarring at the left lung base. No active pulmonary edema. The parenchymal changes in the left lung are less severe compared with the scan from July 2020 suggesting a favorable response to treatment CT abd/pelvis: 1. Findings are suggestive of inflammatory or infectious colitis, new since the CT from 1 month ago. This predominantly involves the ascending and transverse colon but has some lim colonic involvement 2. Multiple low-density hepatic lesions which may represent cysts but are of indeterminate density and could be solid MICRO: Blood cultures, resp panel, GI panel, legionella neg ASSESSMENT: 60-year-old W with small cell lung carcinoma with brain , liver and lung metastasis recently on topotecan who follows with Dr. Rodriguez, who presented to [facility] emergency room with the chief complaint of increased weakness and was admitted with chemo induced profound pancytopenia and colitis with bloody diarrhea with +SIRS criteria c/f sepsis with course c/b Afib and sometimes flutter with RVR. PLAN: Poor PO intake, worsening with acute and chronic disease -Picked up earlier in the week but over past 72 hrs has been gradually declining -R/o dysphagia to pills and food with swallowing evaluation -Discussed feeding tube/artificial means of nutrition with patient and at this time she would not like to pursue this. She would like to go home and see if her appetite picks up. I explained to her that in order to safely go home she would need to participate with physical therapy which will be by later today. She agreed. I did reiterate that if she did not eat well she is likely would get weaker and might not participate well with physical therapy. -Nutritional reassessment was done again on 08/09/21 (last done on 07/26/21) -C/w D5 NS for now Deconditioning likely 2/2 to acute and chronic disease -F/u reassessment from PT/OT today Pancytopenia (anemia, leukopenia, thrombocytopenia) 2/2 to tocotecan -Stable H/H with improving WBC. PLts continue to improve to 27 -ANC increased to >1.5, stopped neupogen 08/07/21. -CBC -Spoke with Dr. Paulson, hematology/oncology, goal ANC > 1.5, transfuse PLTs if bleeding <50 and bleeding OR PLTs< 10 . Goal Hgb >8, if less transfuse -At this time patient's platelets have improved to the point where she could be discharged to follow-up with Dr. Paulson Diarrhea likely 2/2 to magnesium oxide- improved -with hx of recent colitis -Loperamide PRN -Stop mag ox supplement -Replace electrolytes PRN GI bleed likely 2/2 to colitis -GI bleeding stopped, with stool now brown -s/p 8 units PRBC, 15 PLTs, 4 FFP, Vit K SQ. -Will likely need colonoscopy as o/p in 4-6 weeks after treatment -Daily CBC -Avoid AC for now Paroxysmal Afib, flutter w/ RVR: has a history paroxysmal afib -Currently NSR, rate controlled -Echo above -telemetry -daily mag and K check and repletion -continue metop 50Q6H, no AC given profound thrombocytopenia -Dr. 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 Most recently took oral topotecan for 5 days approx 2 weeks prior to this admission -Per last office note on 07/21/2021, it was discussed that chemotherapy may not be helping her cancer and that they may need to start planning for palliative care or even hospice. -Heme/onc onboard -Now DNR/DNI, updated, MOLST signed and in chart GERD -PPI IV Chronic pain secondary to malignancy -c/w home pain medications Graves Disease with hypothyroid conversion s/p ablation -C/w levothyroxine Hypokalemia -30 mg PO BID -Given additional 40 mEq today. If still low tomorrow may want to consider 40 mEq BID dosing -check BMP daily and repleted to K>3.5 Hypomagnesemia: -Magnesium increased to TID but later stopped today due to diarrhea -check mag daily and repleted to Mg>2 DVT pxx -SCDs, teds DISPOSITION: Admitted under acute inpatient status. Heme/onc consulted and Dr. Paulson has seen. Very weak, follow-up PT assessment. Clarified the difference between a DNR/DNI and comfort measures/hospice. At this time she would definitely like to remain just DNR/DNI. VS, I&O, 24H, Fishbone Vital Signs/I&O Vital Signs Date Time Temp Pulse Resp B/P (MAP) Pulse Ox O2 Delivery O2 Flow Rate FiO2 08/09/21 17:15 86 134/68 08/09/21 14:00 97.6 18 97 Room Air 08/03/21 04:00 2.0 I&O- Last 24 Hours up to 6 AM 08/09/21 06:00 Intake Total 3300 ml Output Total 600 ml Balance 2700 ml Laboratory Data 24H LABS Laboratory Tests 2 08/09/21 07:18: Nucleated Red Blood Cells % (auto) 0.0, Immature Platelet Fraction 8.9, Anion Gap 6L, Glomerular Filtration Rate > 60.0, Calcium Level 8.0L, Magnesium Level 1.4L, Total Bilirubin 0.6, Aspartate Amino Transf (AST/SGOT) 18, Alanine Aminotransferase (ALT/SGPT) 23, Alkaline Phosphatase 202H, Total Protein 5.1L, Albumin 1.3L, Albumin/Globulin Ratio 0.3L 08/09/21 09:51: Prothrombin Time 15.5H, Prothromb Time International Ratio 1.18, Activated Partial Thromboplast Time 37.6 CBC/BMP Laboratory Tests 08/09/21 07:18 Aidee Connell MD Aug 09, 2021 18:15
[2021-08-09 20:00] VITALS: BP 131/72
[2021-08-09 22:00] VITALS: BP 131/72
[2021-08-10] MEDS: D5W/0.9% SODIUM CHLORIDE 1,000 ML IV SCH ×2 (03:04→15:16)
[2021-08-10 06:00] VITALS: BP 124/65
[2021-08-10] MEDS: LEVOTHYROXINE 88MCG TABLET (0.088 MG) PO SCH (06:18)
[2021-08-10] MEDS: METOPROLOL TART 50 MG TAB PO SCH ×4 (06:19→17:05)
[2021-08-10] MEDS: PANTOPRAZOLE 40MG VIAL (C9113 PER 1) IV SCH ×2 (08:09→20:11)
[2021-08-10] MEDS: FUROSEMIDE 20MG/2ML VIAL (J1940) IV SCH (08:09)
[2021-08-10] MEDS: FAMOTIDINE 20 MG TAB PO SCH (08:10)
[2021-08-10] MEDS: POTASSIUM CHLORIDE 10MEQ SR TABLET PO SCH ×2 (08:10→20:12)
[2021-08-10] MEDS: MEMANTINE 5MG TABLET (NAMENDA) PO SCH ×2 (08:10→20:12)
[2021-08-10] MEDS: LACTOBACILLUS ACIDOPHILUS CAP (BACID) PO SCH ×2 (08:10→16:54)
[2021-08-10] MEDS: LOPERAMIDE 2 MG CAPLET PO PRN (08:10)
[2021-08-10] MEDS: ATORVASTATIN 20 MG TAB PO SCH (08:10)
[2021-08-10 08:27] LABS: HEMATOCRIT 38.9 % (36.0-47.0); HEMOGLOBIN 12.8 g/dl (12.0-15.5); MEAN CORPUSCULAR HEMOGLOBIN 29.4 pg (27.0-33.0); MEAN CORPUSCULAR HGB CONC 32.9 g/dl (32.0-36.5); MEAN CORPUSCULAR VOLUME 89.2 fl (80.0-96.0); RED BLOOD COUNT 4.36 10^6/uL (4.00-5.40); WHITE BLOOD COUNT 7.4 10^3/uL (4.0-10.0)
[2021-08-10 08:28] LABS: PLATELET COUNT, AUTOMATED 38 10^3/uL (150-450)
[2021-08-10 08:40] LABS: ALBUMIN 1.4 GM/DL (3.2-5.2); ALT/SGPT 21 U/L (12-78); BILIRUBIN,TOTAL 0.6 MG/DL (0.2-1.0); BLOOD UREA NITROGEN 8 MG/DL (7-18); CALCIUM LEVEL 7.6 MG/DL (8.8-10.2); CARBON DIOXIDE LEVEL 25 MEQ/L (21-32); CHLORIDE LEVEL 106 MEQ/L (98-107); CREATININE FOR GFR 0.67 MG/DL (0.55-1.30); GLOMERULAR FILTRATION RATE > 60.0 (>45); GLUCOSE, FASTING 108 MG/DL (70-100); MAGNESIUM LEVEL 1.5 MG/DL (1.8-2.4); POTASSIUM SERUM 3.8 MEQ/L (3.5-5.1); SODIUM LEVEL 140 MEQ/L (136-145); TOTAL PROTEIN 4.9 GM/DL (6.4-8.2)
[2021-08-10] MEDS ORDERED: MAGNESIUM OXIDE 400MG TAB (MAG-OX) PO SCH (09:00)
[2021-08-10] MEDS: MAG SULF 1GM/100ML (MAG RUN) 1 GM in IV 1 EA IV SCH ×2 (09:29→10:54)
[2021-08-10 14:00] VITALS: BP 125/64
--- NOTE | 2021-08-10 15:01 | IPNPDOC ---
Text Note Date of Service The patient was seen on 08/10/21. NOTE Subjective: -Weak, continues to have poor PO and difficulty swallowing pills -Denies chest pain, SOB, fevers, chills, n/v/d Objective: VITALS: see below CONSTITUTIONAL: AAOx3, chronically ill appearing EYES: PERRLA, EOM intact, pale conjunctiva HENT, MOUTH: Normocephalic, atraumatic, moist mucous membranes, alopecia, cushingoid face NECK: SUPPLE, no JVD, no lymphadenopathy, no carotid bruit CV: RRR, S1S2 normal, no murmurs/rubs/gallops RESPIRATORY: Clear to auscultation bilaterally, no rales/rhonchi/wheezes GI: BS positive in 4 quadrants, soft, nondistended, nontender, no rebound or guarding, no organomegaly MUSCULOSKELETAL: No lower extremity edema bilaterally. WWP. INTEGUMENTARY: pale skin, poor skin turgor, intact, no rashes, no lesions, no erythema NEUROLOGIC: Cranial Nerves III-XII are intact, no focal deficits except very weak with 3.5-4 out of 5 strength throughout LABORATORY DATA: Reviewed WBC 7.4 Hgb 12.8 Platelets 38 na 140 K 3.8 Cr 0.67 Mag 1.5 IMAGING: Echocardiogram 07/30/21: Underlying sinus tachycardia without intraventricular conduction disturbance with bout of paroxysmal atrial fibrillation and rate up to 140-150 BMP. This subsequently converted back to sinus rhythm. M-mode and 2-dimensional echocardiography was performed with pulse, continuous wave, color flow, and tissue Doppler studies. All Doppler measurements above were made while the patient was in sinus rhythm. Normal left ventricular size and wall thickness and wall motion. Mildly dilated left atrium with grade 1 LV diastolic dysfunction and currently elevated estimated mean left atrial pressure. Normal right heart chamber sizes and motion with estimated pulmonary arterial pressure mildly increased. Inferior vena cava was upper limits of normal size with adequate respiratory collapse, in keeping with central venous pressure of approximately 10 mmHg. Normal aortic dimensions. Mild aortic valvular sclerosis without stenosis and very mild insufficiency. Normal-appearing mitral valvular apparatus with no more than trace insufficiency. Normal-appearing tricuspid valve with mild insufficiency. No apparent intracardiac mass or pericardial effusion but fairly large left pleural effusion. CXR: Ill-defined areas of opacity involving the left hemithorax. CTA chest: 1. No evidence of acute, central pulmonary embolus. Peripheral pulmonary arterial evaluation is limited by cardiac and respiratory motion artifact. 2. Small left pleural effusion, with areas of left lung bronchiectasis and possible infiltrates or scarring at the left lung base. No active pulmonary edema. The parenchymal changes in the left lung are less severe compared with the scan from July 2020 suggesting a favorable response to treatment CT abd/pelvis: 1. Findings are suggestive of inflammatory or infectious colitis, new since the CT from 1 month ago. This predominantly involves the ascending and transverse colon but has some lim colonic involvement 2. Multiple low-density hepatic lesions which may represent cysts but are of indeterminate density and could be solid MICRO: Blood cultures, resp panel, GI panel, legionella neg ASSESSMENT: 60-year-old W with small cell lung carcinoma with brain , liver and lung metastasis recently on topotecan who follows with Dr. Rodriguez, who presented to [facility] emergency room with the chief complaint of increased weakness and was admitted with chemo induced profound pancytopenia and colitis with bloody diarrhea with +SIRS criteria c/f sepsis with course c/b Afib and sometimes flutter with RVR with course now c/b significant deconditioning with continued poor PO. PLAN: Malnutrition with acute on chronic poor PO -Pending swallowing evaluation for difficulty swallowing pills -Prior hospitalist discussed feeding tube/artificial means of nutrition with patient and she declined. She would like to go home and see if her appetite picks up but is very deconditioned and working with PT/OT -Nutritional reassessment was done again on 08/09/21 (last done on 07/26/21) -C/w D5 NS for now nad regular diet Deconditioning likely 2/2 to acute and chronic disease -F/u reassessment from PT/OT -Patient and would prefer a home discharge but he has to return to work and could not provide the 24 care she would require at this time, will follow up PT/OT Pancytopenia (anemia, leukopenia, thrombocytopenia) 2/2 to tocotecan: improved -ANC increased to >1.5, stopped neupogen 08/07/21. -Daily CBC -s/p supportive blood products -Spoke with Dr. Paulson, hematology/oncology, goal ANC > 1500, transfuse PLTs if bleeding <50 and bleeding OR PLTs< 10 . Goal Hgb >8, if less transfuse -At this time patient's platelets have improved to the point where she could be discharged to follow-up with Dr. Paulson Diarrhea likely 2/2 to magnesium oxide- improved -with hx of recent colitis -Loperamide PRN -Stop mag ox supplement, giving IV repletion -Replace electrolytes PRN GI bleed likely 2/2 to colitis -GI bleeding stopped, with stool now brown -s/p 8 units PRBC, 15 PLTs, 4 FFP, Vit K SQ. -Will likely need colonoscopy as o/p in 4-6 weeks after treatment -Daily CBC -Avoid AC for now Paroxysmal Afib, flutter w/ RVR: has a history paroxysmal afib -Currently NSR, rate controlled -Echo above -telemetry -daily mag and K check and repletion -continue metop 50Q6H, no AC given profound thrombocytopenia -Dr. 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 Most recently took oral topotecan for 5 days approx 2 weeks prior to this admission -Per last office note on 07/21/2021, it was discussed that chemotherapy may not be helping her cancer and that they may need to start planning for palliative care or even hospice. -Heme/onc onboard -Now DNR/DNI, updated, MOLST signed and in chart GERD -PPI IV Chronic pain secondary to malignancy -c/w home pain medications Graves Disease with hypothyroid conversion s/p ablation -C/w levothyroxine Hypokalemia -30 mg PO BID -check BMP daily and repleted to K>3.5 Hypomagnesemia: -IV mag repletion today -check mag daily and repleted to Mg>2 DVT ppx -SCDs, teds DISPOSITION: Admitted under acute inpatient status. Heme/onc consulted and Dr. Paulson has seen. Very weak, follow-up PT/OT assessment. VS,Fishbone, I+O VS, Fishbone, I+O Laboratory Tests 08/10/21 07:45 Vital Signs Date Time Temp Pulse Resp B/P (MAP) Pulse Ox O2 Delivery O2 Flow Rate FiO2 08/10/21 06:19 85 124/65 08/10/21 06:00 98.7 17 94 Room Air I&O- Last 24 Hours up to 6 AM 08/10/21 06:00 Intake Total 2160 ml Output Total 2075 ml Balance 85 ml HUSSAIN HOANG MD Aug 10, 2021 09:07
[2021-08-10 22:00] VITALS: BP 122/63
[2021-08-11] MEDS: D5W/0.9% SODIUM CHLORIDE 1,000 ML IV SCH ×2 (00:38→17:33)
[2021-08-11] MEDS: METOPROLOL TART 50 MG TAB PO SCH ×5 (00:38→23:33)
[2021-08-11] MEDS: LEVOTHYROXINE 88MCG TABLET (0.088 MG) PO SCH (05:50)
[2021-08-11 06:00] VITALS: BP 133/77
[2021-08-11 06:58] LABS: HEMOGLOBIN 12.9 g/dl (12.0-15.5); MEAN CORPUSCULAR HEMOGLOBIN 29.7 pg (27.0-33.0); MEAN CORPUSCULAR HGB CONC 33.1 g/dl (32.0-36.5); MEAN CORPUSCULAR VOLUME 89.7 fl (80.0-96.0); RED BLOOD COUNT 4.35 10^6/uL (4.00-5.40)
[2021-08-11 07:12] LABS: PLATELET COUNT, AUTOMATED 53 10^3/uL (150-450)
[2021-08-11 07:16] LABS: ALBUMIN 1.5 GM/DL (3.2-5.2); ALT/SGPT 20 U/L (12-78); BILIRUBIN,TOTAL 0.6 MG/DL (0.2-1.0); BLOOD UREA NITROGEN 7 MG/DL (7-18); CALCIUM LEVEL 7.8 MG/DL (8.8-10.2); CARBON DIOXIDE LEVEL 26 MEQ/L (21-32); CHLORIDE LEVEL 107 MEQ/L (98-107); CREATININE FOR GFR 0.62 MG/DL (0.55-1.30); GLOMERULAR FILTRATION RATE > 60.0 (>45); GLUCOSE, FASTING 100 MG/DL (70-100); MAGNESIUM LEVEL 1.9 MG/DL (1.8-2.4); POTASSIUM SERUM 3.9 MEQ/L (3.5-5.1); SODIUM LEVEL 140 MEQ/L (136-145)
[2021-08-11] MEDS: FAMOTIDINE 20 MG TAB PO SCH (08:13)
[2021-08-11] MEDS: FUROSEMIDE 20MG/2ML VIAL (J1940) IV SCH (08:13)
[2021-08-11] MEDS: MEMANTINE 5MG TABLET (NAMENDA) PO SCH ×2 (08:13→20:27)
[2021-08-11] MEDS: LACTOBACILLUS ACIDOPHILUS CAP (BACID) PO SCH ×2 (08:13→17:32)
[2021-08-11] MEDS: PANTOPRAZOLE 40MG VIAL (C9113 PER 1) IV SCH ×2 (08:13→20:18)
[2021-08-11] MEDS: ATORVASTATIN 20 MG TAB PO SCH (08:13)
[2021-08-11] MEDS: POTASSIUM CHLORIDE 10MEQ SR TABLET PO SCH ×2 (08:15→20:26)
[2021-08-11] MEDS: fentaNYL 25 MCG/HR PATCH TOP SCH (09:02)
[2021-08-11 14:00] VITALS: BP 110/62
[2021-08-11] MEDS: ACETAMINOPHEN TAB 650MG DOSE (2X325MG) PO PRN (14:36)
[2021-08-11] MEDS: LOPERAMIDE 2 MG CAPLET PO PRN (14:48)
--- NOTE | 2021-08-11 20:21 | IPNPDOC ---
Text Note Date of Service The patient was seen on 08/11/21. NOTE Subjective: -Feels weak, improving PO. Discussed both with Gunjan and Regi Pickett today that I would really like her to participate with PT/OT to the best of her abilities and continue trying to improve her PO as I also start her on meds to augment appetite and that rehab would be best before she goes home because she would otherwise need 24/7 care which Mr. Pickett is unable to provide at this time. Thus far, they hoped to hold out on hospice house. -Denies chest pain, SOB, fevers, chills, n/v/d Objective: VITALS: see below CONSTITUTIONAL: AAOx3, chronically ill appearing EYES: PERRLA, EOM intact, pale conjunctiva HENT, MOUTH: Normocephalic, atraumatic, moist mucous membranes, alopecia, cushingoid face NECK: SUPPLE, no JVD, no lymphadenopathy, no carotid bruit CV: RRR, S1S2 normal, no murmurs/rubs/gallops RESPIRATORY: Clear to auscultation bilaterally, no rales/rhonchi/wheezes GI: BS positive in 4 quadrants, soft, nondistended, nontender, no rebound or guarding, no organomegaly MUSCULOSKELETAL: No lower extremity edema bilaterally. WWP. INTEGUMENTARY: pale skin, poor skin turgor, intact, no rashes, no lesions, no erythema NEUROLOGIC: Cranial Nerves III-XII are intact, no focal deficits except very weak with 3.5-4 out of 5 strength throughout LABORATORY DATA: Reviewed IMAGING: Echocardiogram 07/30/21: Underlying sinus tachycardia without intraventricular conduction disturbance with bout of paroxysmal atrial fibrillation and rate up to 140-150 BMP. This subsequently converted back to sinus rhythm. M-mode and 2-dimensional echocardiography was performed with pulse, continuous wave, color flow, and tissue Doppler studies. All Doppler measurements above were made while the patient was in sinus rhythm. Normal left ventricular size and wall thickness and wall motion. Mildly dilated left atrium with grade 1 LV diastolic dysfunction and currently elevated estimated mean left atrial pressure. Normal right heart chamber sizes and motion with estimated pulmonary arterial pressure mildly increased. Inferior vena cava was upper limits of normal size with adequate respiratory collapse, in keeping with central venous pressure of approximately 10 mmHg. Normal aortic dimensions. Mild aortic valvular sclerosis without stenosis and very mild insufficiency. Normal-appearing mitral valvular apparatus with no more than trace insufficiency. Normal-appearing tricuspid valve with mild insufficiency. No apparent intracardiac mass or pericardial effusion but fairly large left pleural effusion. CXR: Ill-defined areas of opacity involving the left hemithorax. CTA chest: 1. No evidence of acute, central pulmonary embolus. Peripheral pulmonary arterial evaluation is limited by cardiac and respiratory motion artifact. 2. Small left pleural effusion, with areas of left lung bronchiectasis and possible infiltrates or scarring at the left lung base. No active pulmonary edema. The parenchymal changes in the left lung are less severe compared with the scan from July 2020 suggesting a favorable response to treatment CT abd/pelvis: 1. Findings are suggestive of inflammatory or infectious colitis, new since the CT from 1 month ago. This predominantly involves the ascending and transverse colon but has some lim colonic involvement 2. Multiple low-density hepatic lesions which may represent cysts but are of indeterminate density and could be solid MICRO: Blood cultures, resp panel, GI panel, legionella neg ASSESSMENT: 60-year-old W with small cell lung carcinoma with brain , liver and lung metastasis recently on topotecan who follows with Dr. Rodriguez, who presented to [facility] emergency room with the chief complaint of increased weakness and was admitted with chemo induced profound pancytopenia and colitis with bloody diarrhea with +SIRS criteria c/f sepsis with course c/b Afib and sometimes flutter with RVR with course now c/b significant deconditioning. PLAN: Malnutrition with acute on chronic poor PO -Prior hospitalist discussed feeding tube/artificial means of nutrition with patient and she declined. She would like to go home and see if her appetite picks up but is very deconditioned and working with PT/OT -Nutritional reassessment was done again on 08/09/21 (last done on 07/26/21) to continue ensure with regular diet. -will start her Marinol Deconditioning 2/2 to critical illness -F/u continues assessment from PT/OT -Patient and onboard with rehab before home discharge if possible Pancytopenia (anemia, leukopenia, thrombocytopenia) 2/2 to tocotecan: improved -ANC increased to >1.5, stopped neupogen 08/07/21. -Daily CBC -s/p supportive blood products -Spoke with Dr. Paulson, hematology/oncology, goal ANC > 1500, transfuse PLTs if bleeding <50 and bleeding OR PLTs< 10 . Goal Hgb >8, if less transfuse -At this time patient's platelets have improved to the point where she could be discharged to follow-up with Dr. Paulson Diarrhea likely 2/2 to magnesium oxide- improved -with hx of recent colitis -Loperamide PRN -Stop mag ox supplement, giving IV repletion -Replace electrolytes PRN GI bleed likely 2/2 to colitis -GI bleeding stopped, with stool now brown -s/p 8 units PRBC, 15 PLTs, 4 FFP, Vit K SQ. -Will likely need colonoscopy as o/p in 4-6 weeks after treatment -Daily CBC -Avoid AC for now Paroxysmal Afib, flutter w/ RVR: has a history paroxysmal afib -Currently NSR, rate controlled -Echo above -telemetry -daily mag and K check and repletion -continue metop 50Q6H, no AC given profound thrombocytopenia -Dr. 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 Most recently took oral topotecan for 5 days approx 2 weeks prior to this admission -Per last office note on 07/21/2021, it was discussed that chemotherapy may not be helping her cancer and that they may need to start planning for palliative care or even hospice. -Heme/onc onboard -Now DNR/DNI, updated, MOLST signed and in chart GERD -PPI IV Chronic pain secondary to malignancy -c/w home pain medications Graves Disease with hypothyroid conversion s/p ablation -C/w levothyroxine Hypokalemia -30 mg PO BID -check BMP daily and repleted to K>3.5 Hypomagnesemia: -IV mag repletion today -check mag daily and repleted to Mg>2 DVT ppx -SCDs, teds DISPOSITION: Admitted under acute inpatient status. Heme/onc consulted. Very weak, follow-up PT/OT assessment. VS,Fishbone, I+O VS, Fishbone, I+O Laboratory Tests 08/11/21 06:24 Vital Signs Date Time Temp Pulse Resp B/P (MAP) Pulse Ox O2 Delivery O2 Flow Rate FiO2 08/11/21 17:32 84 138/68 08/11/21 14:00 98.3 17 96 Room Air I&O- Last 24 Hours up to 6 AM 08/11/21 06:00 Intake Total 2150 ml Output Total 3100 ml Balance -950 ml HUSSAIN HOANG MD Aug 11, 2021 20:21
[2021-08-11 21:00] VITALS: BP 136/69
[2021-08-11] MEDS: DRONABINOL 2.5 MG CAP (MARINOL) PO SCH (21:18)
[2021-08-12 06:00] VITALS: BP 134/72
[2021-08-12] MEDS: D5W/0.9% SODIUM CHLORIDE 1,000 ML IV SCH (06:12)
[2021-08-12] MEDS: METOPROLOL TART 50 MG TAB PO SCH ×3 (06:13→17:43)
[2021-08-12] MEDS: LEVOTHYROXINE 88MCG TABLET (0.088 MG) PO SCH (06:13)
[2021-08-12 07:09] LABS: HEMATOCRIT 37.8 % (36.0-47.0); HEMOGLOBIN 12.2 g/dl (12.0-15.5); MEAN CORPUSCULAR HEMOGLOBIN 29.3 pg (27.0-33.0); MEAN CORPUSCULAR HGB CONC 32.3 g/dl (32.0-36.5); MEAN CORPUSCULAR VOLUME 90.6 fl (80.0-96.0); RED BLOOD COUNT 4.17 10^6/uL (4.00-5.40); WHITE BLOOD COUNT 6.5 10^3/uL (4.0-10.0)
[2021-08-12 07:11] LABS: ALBUMIN 1.4 GM/DL (3.2-5.2); ALT/SGPT 21 U/L (12-78); BILIRUBIN,TOTAL 0.6 MG/DL (0.2-1.0); BLOOD UREA NITROGEN 6 MG/DL (7-18); CALCIUM LEVEL 7.8 MG/DL (8.8-10.2); CARBON DIOXIDE LEVEL 26 MEQ/L (21-32); CHLORIDE LEVEL 107 MEQ/L (98-107); GLOMERULAR FILTRATION RATE > 60.0 (>45); GLUCOSE, FASTING 98 MG/DL (70-100); POTASSIUM SERUM 3.5 MEQ/L (3.5-5.1); SODIUM LEVEL 140 MEQ/L (136-145)
[2021-08-12 07:18] LABS: PLATELET COUNT, AUTOMATED 70 10^3/uL (150-450)
[2021-08-12] MEDS: PANTOPRAZOLE 40MG VIAL (C9113 PER 1) IV SCH ×2 (09:05→21:26)
[2021-08-12] MEDS: POTASSIUM CHLORIDE 10MEQ SR TABLET PO SCH ×2 (09:06→21:26)
[2021-08-12] MEDS: DRONABINOL 2.5 MG CAP (MARINOL) PO SCH ×4 (09:09→21:34)
[2021-08-12] MEDS: FAMOTIDINE 20 MG TAB PO SCH (09:09)
[2021-08-12] MEDS: LACTOBACILLUS ACIDOPHILUS CAP (BACID) PO SCH ×2 (09:10→17:41)
[2021-08-12] MEDS: MEMANTINE 5MG TABLET (NAMENDA) PO SCH ×2 (09:11→21:26)
[2021-08-12] MEDS: ATORVASTATIN 20 MG TAB PO SCH (09:12)
--- NOTE | 2021-08-12 10:27 | IPNPDOC ---
Text Note Date of Service The patient was seen on 08/12/21. NOTE Subjective: -Denies chest pain, SOB, fevers, chills, n/v/d Objective: VITALS: see below CONSTITUTIONAL: AAOx3, chronically ill appearing EYES: PERRLA, EOM intact, pale conjunctiva HENT, MOUTH: Normocephalic, atraumatic, moist mucous membranes, alopecia, cushingoid face NECK: SUPPLE, no JVD, no lymphadenopathy, no carotid bruit CV: RRR, S1S2 normal, no murmurs/rubs/gallops RESPIRATORY: Clear to auscultation bilaterally, no rales/rhonchi/wheezes GI: BS positive in 4 quadrants, soft, nondistended, nontender, no rebound or guarding, no organomegaly MUSCULOSKELETAL: No lower extremity edema bilaterally. WWP. INTEGUMENTARY: pale skin, poor skin turgor, intact, no rashes, no lesions, no erythema NEUROLOGIC: Cranial Nerves III-XII are intact, no focal deficits except very weak with 3.5-4 out of 5 strength throughout LABORATORY DATA: Reviewed, stable IMAGING: Echocardiogram 07/30/21: Underlying sinus tachycardia without intraventricular conduction disturbance with bout of paroxysmal atrial fibrillation and rate up to 140-150 BMP. This subsequently converted back to sinus rhythm. M-mode and 2-dimensional echocardiography was performed with pulse, continuous wave, color flow, and tissue Doppler studies. All Doppler measurements above were made while the patient was in sinus rhythm. Normal left ventricular size and wall thickness and wall motion. Mildly dilated left atrium with grade 1 LV diastolic dysfunction and currently elevated estimated mean left atrial pressure. Normal right heart chamber sizes and motion with estimated pulmonary arterial pressure mildly increased. Inferior vena cava was upper limits of normal size with adequate respiratory collapse, in keeping with central venous pressure of approximately 10 mmHg. Normal aortic dimensions. Mild aortic valvular sclerosis without stenosis and very mild insufficiency. Normal-appearing mitral valvular apparatus with no more than trace insufficiency. Normal-appearing tricuspid valve with mild insufficiency. No apparent intracardiac mass or pericardial effusion but fairly large left pleural effusion. CXR: Ill-defined areas of opacity involving the left hemithorax. CTA chest: 1. No evidence of acute, central pulmonary embolus. Peripheral pulmonary arterial evaluation is limited by cardiac and respiratory motion artifact. 2. Small left pleural effusion, with areas of left lung bronchiectasis and possible infiltrates or scarring at the left lung base. No active pulmonary edema. The parenchymal changes in the left lung are less severe compared with the scan from July 2020 suggesting a favorable response to treatment CT abd/pelvis: 1. Findings are suggestive of inflammatory or infectious colitis, new since the CT from 1 month ago. This predominantly involves the ascending and transverse colon but has some lim colonic involvement 2. Multiple low-density hepatic lesions which may represent cysts but are of indeterminate density and could be solid MICRO: Blood cultures, resp panel, GI panel, legionella neg ASSESSMENT: 60-year-old W with small cell lung carcinoma with brain , liver and lung metastasis recently on topotecan who follows with Dr. Rodriguez, who presented to [facility] emergency room with the chief complaint of increased weakness and was admitted with chemo induced profound pancytopenia and colitis with bloody diarrhea with +SIRS criteria c/f sepsis with course c/b Afib and sometimes flutter with RVR with course now c/b significant deconditioning. PLAN: Malnutrition with acute on chronic poor PO -Prior hospitalist discussed feeding tube/artificial means of nutrition with patient and she declined. She would like to go home and see if her appetite picks up but is very deconditioned and working with PT/OT -Nutritional reassessment was done again on 08/09/21 (last done on 07/26/21) to continue ensure with regular diet. -Started her Marinol -Will dc fluids and IV lasix Deconditioning 2/2 to critical illness -F/u continues assessment from PT/OT -Patient and onboard with rehab if possible. Pancytopenia (anemia, leukopenia, thrombocytopenia) 2/2 to tocotecan: improved -ANC increased to >1.5, stopped neupogen 08/07/21. -Daily CBC -s/p supportive blood products -Spoke with Dr. Paulson, hematology/oncology, goal ANC > 1500, transfuse PLTs if bleeding <50 and bleeding OR PLTs< 10 . Goal Hgb >8, if less transfuse -At this time patient's platelets have improved to the point where she could be discharged to follow-up with Dr. Paulson Diarrhea likely 2/2 to magnesium oxide- improved -with hx of recent colitis -Loperamide PRN -Stop mag ox supplement, giving IV repletion -Replace electrolytes PRN GI bleed likely 2/2 to colitis -GI bleeding stopped, with stool now brown -s/p 8 units PRBC, 15 PLTs, 4 FFP, Vit K SQ. -Will likely need colonoscopy as o/p in 4-6 weeks after treatment -Daily CBC -Avoid AC for now Paroxysmal Afib, flutter w/ RVR: has a history paroxysmal afib -Currently NSR, rate controlled -Echo above -telemetry -daily mag and K check and repletion -continue metop 50Q6H, no AC given profound thrombocytopenia -Dr. 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 Most recently took oral topotecan for 5 days approx 2 weeks prior to this admission -Per last office note on 07/21/2021, it was discussed that chemotherapy may not be helping her cancer and that they may need to start planning for palliative care or even hospice. -Heme/onc onboard -Now DNR/DNI, updated, MOLST signed and in chart GERD -PPI IV Chronic pain secondary to malignancy -c/w home pain medications Graves Disease with hypothyroid conversion s/p ablation -C/w levothyroxine Hypokalemia -30 mg PO BID -check BMP daily and repleted to K>3.5 Hypomagnesemia: -IV mag repletion today -check mag daily and repleted to Mg>2 DVT ppx -SCDs, teds DISPOSITION: Admitted under acute inpatient status. Heme/onc consulted. Very weak, follow-up PT/OT assessment. PFS onboard, working on GOC to align with clinical status and a safe discharge plan VSAntonia, I+O VSAntonia I+O Laboratory Tests 08/12/21 05:57 Vital Signs Date Time Temp Pulse Resp B/P (MAP) Pulse Ox O2 Delivery O2 Flow Rate FiO2 08/12/21 06:13 78 134/72 08/12/21 06:00 97.5 18 95 Room Air I&O- Last 24 Hours up to 6 AM 08/12/21 06:00 Intake Total 2520 ml Output Total 2900 ml Balance -380 ml HUSSAIN HOANG MD Aug 12, 2021 07:57
[2021-08-12] MEDS: ACETAMINOPHEN TAB 650MG DOSE (2X325MG) PO PRN (17:46)
[2021-08-13] MEDS: METOPROLOL TART 50 MG TAB PO SCH ×4 (05:57→17:30)
[2021-08-13] MEDS: LEVOTHYROXINE 88MCG TABLET (0.088 MG) PO SCH (05:57)
[2021-08-13 06:00] VITALS: BP 117/69
[2021-08-13] MEDS: DRONABINOL 2.5 MG CAP (MARINOL) PO SCH ×4 (07:30→20:27)
[2021-08-13] MEDS: POTASSIUM CHLORIDE 10MEQ SR TABLET PO SCH ×2 (09:00→20:27)
[2021-08-13] MEDS: ATORVASTATIN 20 MG TAB PO SCH (09:00)
[2021-08-13] MEDS: PANTOPRAZOLE 40MG TAB (PROTONIX) PO SCH ×2 (09:00→20:27)
[2021-08-13] MEDS: FAMOTIDINE 20 MG TAB PO SCH (09:00)
[2021-08-13] MEDS: MEMANTINE 5MG TABLET (NAMENDA) PO SCH ×2 (09:00→20:27)
[2021-08-13] MEDS: LACTOBACILLUS ACIDOPHILUS CAP (BACID) PO SCH ×2 (09:55→17:30)
[2021-08-14] MEDS: LOPERAMIDE 2 MG CAPLET PO PRN (00:16)
[2021-08-14] MEDS: METOPROLOL TART 50 MG TAB PO SCH ×4 (00:17→18:00)
[2021-08-14] MEDS: ACETAMINOPHEN TAB 650MG DOSE (2X325MG) PO PRN (00:17)
[2021-08-14] MEDS: LEVOTHYROXINE 88MCG TABLET (0.088 MG) PO SCH (05:30)
[2021-08-14 06:00] VITALS: BP 109/62
[2021-08-14] MEDS: POTASSIUM CHLORIDE 10MEQ SR TABLET PO SCH ×2 (09:00→20:39)
[2021-08-14] MEDS: FAMOTIDINE 20 MG TAB PO SCH (09:00)
[2021-08-14] MEDS: PANTOPRAZOLE 40MG TAB (PROTONIX) PO SCH ×2 (09:00→20:40)
[2021-08-14] MEDS: ATORVASTATIN 20 MG TAB PO SCH (09:00)
[2021-08-14] MEDS: MEMANTINE 5MG TABLET (NAMENDA) PO SCH ×2 (09:00→20:39)
[2021-08-14] MEDS: DRONABINOL 2.5 MG CAP (MARINOL) PO SCH ×4 (09:21→20:40)
[2021-08-14] MEDS: LACTOBACILLUS ACIDOPHILUS CAP (BACID) PO SCH ×2 (09:21→17:58)
[2021-08-14] MEDS: fentaNYL 25 MCG/HR PATCH TOP SCH (11:37)
[2021-08-14] MEDS: FENTANYL REMOVAL DOCUMENTATION MISC XX SCH (11:37)
[2021-08-15] MEDS: METOPROLOL TART 50 MG TAB PO SCH ×4 (00:09→17:44)
[2021-08-15] MEDS: LEVOTHYROXINE 88MCG TABLET (0.088 MG) PO SCH (05:32)
[2021-08-15 06:00] VITALS: BP 122/75
[2021-08-15] MEDS: DRONABINOL 2.5 MG CAP (MARINOL) PO SCH ×5 (07:30→20:08)
[2021-08-15] MEDS: LACTOBACILLUS ACIDOPHILUS CAP (BACID) PO SCH ×3 (08:00→17:43)
[2021-08-15] MEDS: ATORVASTATIN 20 MG TAB PO SCH ×2 (09:00→09:24)
[2021-08-15] MEDS: FAMOTIDINE 20 MG TAB PO SCH ×2 (09:00→09:24)
[2021-08-15] MEDS: MEMANTINE 5MG TABLET (NAMENDA) PO SCH ×3 (09:00→20:08)
[2021-08-15] MEDS: POTASSIUM CHLORIDE 10MEQ SR TABLET PO SCH ×3 (09:00→20:08)
[2021-08-15] MEDS: PANTOPRAZOLE 40MG TAB (PROTONIX) PO SCH ×3 (09:00→20:08)
[2021-08-15 22:00] VITALS: BP 156/76
[2021-08-16] MEDS: METOPROLOL TART 50 MG TAB PO SCH ×5 (00:17→23:08)
[2021-08-16 06:00] VITALS: BP 112/56
[2021-08-16] MEDS: LEVOTHYROXINE 88MCG TABLET (0.088 MG) PO SCH (06:22)
[2021-08-16] MEDS: POTASSIUM CHLORIDE 10MEQ SR TABLET PO SCH ×2 (09:37→21:29)
[2021-08-16] MEDS: MEMANTINE 5MG TABLET (NAMENDA) PO SCH ×2 (09:37→21:29)
[2021-08-16] MEDS: ATORVASTATIN 20 MG TAB PO SCH (09:37)
[2021-08-16] MEDS: PANTOPRAZOLE 40MG TAB (PROTONIX) PO SCH ×2 (09:37→21:29)
[2021-08-16] MEDS: LACTOBACILLUS ACIDOPHILUS CAP (BACID) PO SCH ×2 (09:37→18:28)
[2021-08-16] MEDS: FAMOTIDINE 20 MG TAB PO SCH (09:38)
[2021-08-16] MEDS: DRONABINOL 2.5 MG CAP (MARINOL) PO SCH ×4 (09:39→21:29)
[2021-08-16 22:00] VITALS: BP 120/56
[2021-08-16] MEDS ORDERED: ACETAMINOPHEN 325 MG/10.15 ML UDC PO ONE (22:30)
[2021-08-17] MEDS: LEVOTHYROXINE 88MCG TABLET (0.088 MG) PO SCH (05:48)
[2021-08-17 05:51] VITALS: BP 104/69
[2021-08-17] MEDS: METOPROLOL TART 50 MG TAB PO SCH ×2 (05:51→12:00)
[2021-08-17 06:00] VITALS: BP 104/69
[2021-08-17] MEDS: POTASSIUM CHLORIDE 10MEQ SR TABLET PO SCH (08:21)
[2021-08-17] MEDS: DRONABINOL 2.5 MG CAP (MARINOL) PO SCH ×2 (08:21→12:00)
[2021-08-17] MEDS: FAMOTIDINE 20 MG TAB PO SCH (08:21)
[2021-08-17] MEDS: LACTOBACILLUS ACIDOPHILUS CAP (BACID) PO SCH (08:21)
[2021-08-17] MEDS: MEMANTINE 5MG TABLET (NAMENDA) PO SCH (08:22)
[2021-08-17] MEDS: ATORVASTATIN 20 MG TAB PO SCH (08:22)
[2021-08-17] MEDS: PANTOPRAZOLE 40MG TAB (PROTONIX) PO SCH (08:22)
[2021-08-17] MEDS: fentaNYL 25 MCG/HR PATCH TOP SCH (08:27)
[2021-08-17] MEDS: FENTANYL REMOVAL DOCUMENTATION MISC XX SCH (08:28)
[2021-08-17] MEDS ORDERED: RISATAB3 PO (11:02)
[2021-08-17] MEDS ORDERED: POTA-136 PO (11:02)
[2021-08-17] MEDS ORDERED: MORP1SOL5 PO (11:02)
[2021-08-17] MEDS ORDERED: HYOS125TA PO (11:02)
[2021-08-17] MEDS ORDERED: ATIV1TAB10 PO (11:02)
[2021-08-17] MEDS ORDERED: HYDR-3363 PO (11:02)
[2021-08-17] MEDS ORDERED: LOPE2CA PO (11:02)
[2021-08-17] MEDS ORDERED: LOPR1TAB6 PO (11:02)
[2021-08-17] MEDS ORDERED: PROM25TA12 PO (11:02)
--- NOTE | 2021-08-17 21:50 | DS.PDOC ---
Discharge Summary General Date of Admission Jul 26, 2021 at 15:00 Date of Discharge 08/17/21 Attending Physician: Aidee Connell MD Discharge Summary ADMISSION DIAGNOSES: 1. Sepsis 2/2 to Postobstructive PNA vs. Community acquired PNA, r/o other sources 2. Diarrhea 3. Pancytopenia (anemia, leukopenia, thrombocytopenia) likely 2/2 to tocotecan 4. 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 GERD 6. Chronic pain secondary to malignancy 7. Graves Disease with hypothyroid conversion s/p ablation DISCHARGE DIAGNOSES: 1. Failure to thrive 2/2 to acute and chronic disease 2. Deconditioning likely 2/2 to acute and chronic disease 3. Pancytopenia (anemia, leukopenia, thrombocytopenia) 2/2 to tocotecan 4. Diarrhea likely 2/2 to magnesium oxide- 5. GI bleed likely 2/2 to colitis 6. Paroxysmal Afib, flutter w/ RVR: has a history paroxysmal afib 7. 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 GERD 9. Chronic pain secondary to malignancy 10. Graves Disease with hypothyroid conversion s/p ablation 11. Hypokalemia 12. Hypomagnesemia HOSPITAL COURSE: Patient is a 60-year-old female with PMH of Graves' disease with hypothyroid conversion, paroxysmal atrial fibrillation not on AC, history of postobstructive pneumonia, small cell carcinoma with brain , liver and lung metastasis who presented to [facility] emergency room with the chief complaint of increased weakness. It should be noted the patient was an overall poor historian and she was very weak and was not able to give a full history. The patient states she has been having worsening nausea, weakness over the past several weeks. Over the past 24 hours her weakness has worsened she is also had nonbloody diarrhea during that time as well. She also admits to some generalized abdominal discomfort intermittently, 3/10 on pain scale, nonradiating. She denies any chest pain or shortness of breath, recent illnesses. The patient follows with Dr. Rodriguez (med/onc) and recently saw him on 07/21/2021. She was anemic and neutropenic believed to be secondary to the oral topotecan she had taken for 5 days and later stopped. During that visit he had checked labs and found that her blood levels were low and she was told not to restart that medication. The patient complained also that visit of increased generalized pain and her narcotic pain medication was modified. They also discussed that chemotherapy may not be helping her cancer and didn't need to potentially start planning for palliative care or even hospice. In the ER the patient appears lethargic. H/H 6.7/19.4, platelets 10, the WBC 0.2. Last labs on 07/21 showed significant decrease; however, there has been a steady decline over time. Other abnormal labs included a low sodium 133. The patient was slow to answer questions and was very tired to answer most. Chest x- ray showed questionable pneumonia. CT of the abdomen and pelvis along with CT of the chest was ordered. She was febrile and tachycardic. The patient was admitted for sepsis likely secondary to ? postobstructive pneumonia vs community acquired pneumonia, rule out other sources, pancytopenia requiring transfusion. Pt's pancytopenia (anemia, leukopenia, thrombocytopenia) was likely 2/2 to tocotecan. She required neupogen and saw steady incr in H/H, WBC, PLTs. She also required 8 units PRBC, 15 PLTs, 4 FFP, Vit K SQ for GI bleed 2/2 to colitis, which slowly improved. Med/onc followed closely. She experienced paroxysmal Afib, flutter w/ RVR: has a history paroxysmal afib. She tolerated BB and no AC given due to profound thrombocytopenia. She continued to have poor PO intake, worsening with acute and chronic disease. It had initially picked up; however, gradually began to further decline. We discussed feeding tube/artificial means of nutrition with patient and at this time she would not like to pursue this. She wanted to go home and see if her appetite picks up. She attempted physical therapy;howeer, she remained very weak. Hospice referral was placed and her was trained on how to manage her in this condition at home. On 08/17/21, patient was discharged home to f/u with Hospice as o/p. PROCEDURES: None DISCHARGE MEDICATIONS: Please see below. PHYSICAL EXAMINATION: VITALS: see below CONSTITUTIONAL: AAOx3, ill appearing female, resting in bed EYES: PERRLA, EOM intact, pale conjunctiva HENT, MOUTH: Normocephalic, atraumatic, moist mucous membranes, alopecia, cushingoid face NECK: SUPPLE, no JVD, no lymphadenopathy, no carotid bruit CV: RRR, S1S2 normal, no murmurs/rubs/gallops RESPIRATORY: Clear to auscultation bilaterally, no rales/rhonchi/wheezes GI: BS positive in 4 quadrants, soft, nondistended, nontender, no rebound or guarding, no organomegaly MUSCULOSKELETAL: Normal ROM. No cyanosis, clubbing, swelling, joint deformity, extremity edema INTEGUMENTARY: pale skin, poor skin turgor, intact, no rashes, no lesions, no erythema NEUROLOGIC: Cranial Nerves II-XII are intact, no focal deficits IMAGING: See chart ACTIVITY: As tolerated DIET: Regular DISPOSITION: D/c home today to f/u with Hospice. DNR/DNI, did not wish to advance to [employer]. DISCHARGE INSTRUCTIONS: 1. Hospice will follow up with you as outpatient. 2. She is advised to touchbase with both heme/onc and PCP after discharge. 3. Medical bed to arrive prior to her home arrival ITEMS TO FOLLOWUP ON ON OUTPATIENT: Recommend nutritional referral as o/p DISCHARGE CONDITION: Stable but very weak at discharge. TIME SPENT ON DISCHARGE: 35 minutes. Vital Signs/I&Os Vital Signs Date Time Temp Pulse Resp B/P (MAP) Pulse Ox O2 Delivery O2 Flow Rate FiO2 08/17/21 08:57 16 Room Air 08/17/21 06:00 98.3 80 104/69 (81) 92 I&O- Last 24 Hours up to 6 AM 08/17/21 06:00 Intake Total 540 ml Balance 540 ml Discharge Medications Scheduled Atorvastatin Calcium (Atorvastatin Calcium) 20 Mg Tablet, 20 MG PO DAILY, (Reported) Famotidine (Famotidine) 20 Mg Tablet, 20 MG PO DAILY, (Reported) Fentanyl (Fentanyl) 25 Mcg Patch.td72, 1 PATCH TOP Q3D for pain L.acidoph/L.bulg/B.bif/S.therm (Nellie-Bid Caplet) 1 Each Tablet, 1 EA PO BIDWM Levothyroxine Sodium (Synthroid) 88 Mcg Tablet, 88 MCG PO DAILY, (Reported) Memantine HCl (Memantine HCl) 10 Mg Tablet, 1 TAB PO BID Start 10 mg twice daily upon completion of titration pack Metoprolol Tartrate (Lopressor) 50 Mg Tablet, 50 MG PO Q8H Ondansetron HCl (Ondansetron HCl) 8 Mg Tablet, 1 TAB PO TID for nausea/vomiting Potassium Chloride (Klor-Con M10) 10 Meq Tab.er.prt, 30 MEQ PO BID Scheduled PRN Acetaminophen (Tylenol Extra Strength) 500 Mg Tablet, 1,000 MG PO Q6H PRN for PAIN, (Reported) Diphenhydra/Phenyleph/Acetamin (Allergy-Severe Sinus Amaro Caplet) 1 Each Tablet, 2 TAB PO Q4H PRN for ALLERGY SYMPTOMS/SINUS PAIN, (Reported) Hydroxyzine HCl (Hydroxyzine HCl) 25 Mg Tablet, 25 MG PO QHSP PRN for INSOMNIA Hyoscyamine Sulfate (Hyoscyamine Sulfate) 0.125 Mg Tab.subl, 0.125 MG PO Q4HP PRN for TERMINAL SECRETIONS Use sublingually if unable to swallow Ibuprofen (Ibuprofen) 800 Mg Tablet, 1 TAB PO QIDP PRN for pain Loperamide HCl (Anti-Diarrheal) 2 Mg Tablet, 2 MG PO Q2HP PRN for DIARRHEA Lorazepam (Ativan) 0.5 Mg Tablet, 0.5 MG PO Q4HP PRN for ANXIETY/AGITATION Use sublingually if unable to swallow Meclizine HCl (Meclizine HCl) 25 Mg Tablet, 1 TAB PO TIDP PRN for dizziness Morphine Sulfate (Morphine Sulfate) 100 Mg/5 Ml Solution, 0.25-1 ML PO Q2H PRN for PAIN OR DYSPNEA Use sublingually if unable to swallow Promethazine HCl (Promethazine HCl) 25 Mg Tablet, 25 MG PO Q6HP PRN for nausea/vomiting Allergies Coded Allergies: silver (Verified Allergy, Severe, Rash , 09/21/20) Any Tegaderm product TAPE (Verified Allergy, Mild, 09/21/20) Skin peels and rash from Tegaderm levofloxacin (Verified Allergy, Mild, RASH, 09/16/20) Aidee Connell MD Aug 17, 2021 21:50
== END 2021-08-17 13:48 | disposition hospice, home (50) | DRG 660 ==
LOC: M ED 09:36 → M ED INP 15:00 → M PCU 23:35 → M MSPAV 07-28 16:17 → M PCU 07-30 13:54 → M MSPAV 08-05 15:33
PROVIDERS: ADMIT Internal Medicine; ATTEND Internal Medicine
PROC: 30233N1 Transfusion of Nonautologous Red Blood Cells into Peripheral Vein, Percutaneous Approach (ICD-10-PCS; principal; 2021-07-28)
PROC: 30233R1 Transfusion of Nonautologous Platelets into Peripheral Vein, Percutaneous Approach (ICD-10-PCS; 2021-07-28)
DX: D61.810 Antineoplastic chemotherapy induced pancytopenia (principal); C79.31 Secondary malignant neoplasm of brain; C78.7 Secondary malignant neoplasm of liver and intrahepatic bile duct; I48.92 Unspecified atrial flutter; E46 Unspecified protein-calorie malnutrition; D70.9 Neutropenia, unspecified; K92.2 Gastrointestinal hemorrhage, unspecified; I48.0 Paroxysmal atrial fibrillation; C34.90 Malignant neoplasm of unspecified part of unspecified bronchus or lung; E83.42 Hypomagnesemia; Z92.3 Personal history of irradiation; Z92.21 Personal history of antineoplastic chemotherapy; K21.9 Gastro-esophageal reflux disease without esophagitis; G89.3 Neoplasm related pain (acute) (chronic); E05.00 Thyrotoxicosis with diffuse goiter without thyrotoxic crisis or storm; F17.210 Nicotine dependence, cigarettes, uncomplicated; K52.9 Noninfective gastroenteritis and colitis, unspecified; Z66 Do not resuscitate; E87.6 Hypokalemia; Z79.899 Other long term (current) drug therapy; Z91.040 Latex allergy status; Z88.1 Allergy status to other antibiotic agents; Z91.048 Other nonmedicinal substance allergy status; D37.6 Neoplasm of uncertain behavior of liver, gallbladder and bile ducts; R62.7 Adult failure to thrive